=== PATIENT | female | born 1995 | race Caucasian/White ===

== ENCOUNTER 2017-10-14 18:49 | Emergency (ER) | payer OTHER ==
[2017-10-14 19:27] VITALS: RESP 18
--- NOTE | 2017-10-14 19:58 | ED ---
Psych HPI - General Source: patient, RN notes reviewed Mode of arrival: ambulatory - History of Present Illness MD Complaint: suicidal ideation, feels depressed <Lewis Walters - Last Filed: 10/14/17 20:47> <Jose Ramos - Last Filed: 10/14/17 22:46> - General Chief Complaint: Psychiatric Symptoms Stated Complaint: Mental Health Time Seen by Provider: 10/14/17 19:30 - History of Present Illness Initial Comments: This is a 21-year-old female with history depression. Past several years he states she's been very despondent today she's had suicidal thoughts she started about tiny brick to her herself and jump in the river. She also has some suicidal thoughts about a week ago per family members. She states she had a fight with a girlfriend today minutes when this person particular episode started. She denies any drugs or alcohol other than using marijuana. She does have a history of cutting but nothing recent. (Lewis Walters) - Related Data Home Medications Medication Instructions Recorded Confirmed Ibuprofen [Motrin] 400 mg PO Q6HR PRN 10/14/17 10/14/17 Allergies Allergy/AdvReac Type Severity Reaction Status Date / Time Penicillins Allergy Rash/Hives Verified 10/14/17 19:50 Review of Systems ROS Other: All systems not noted in ROS Statement are negative. <Lewis Walters - Last Filed: 10/14/17 20:47> ROS Other: All systems not noted in ROS Statement are negative. <Jose Ramos - Last Filed: 10/14/17 22:46> ROS Statement: Those systems with pertinent positive or pertinent negative responses have been documented in the HPI. Past Medical History Past Medical History: No Reported History History of Any Multi-Drug Resistant Organisms: None Reported Past Surgical History: No Surgical Hx Reported Past Psychological History: Anxiety, Depression Smoking Status: Never smoker Past Alcohol Use History: None Reported Past Drug Use History: Marijuana <Lewis Walters - Last Filed: 10/14/17 20:47> General Exam Limitations: no limitations General appearance: alert Head exam: Present: atraumatic, normocephalic, normal inspection Eye exam: Present: normal appearance, PERRL, EOMI. Absent: scleral icterus, conjunctival injection, periorbital swelling ENT exam: Present: normal exam, mucous membranes moist Neck exam: Present: normal inspection. Absent: tenderness, meningismus, lymphadenopathy Respiratory exam: Present: normal lung sounds bilaterally. Absent: respiratory distress, wheezes, rales, rhonchi, stridor Cardiovascular Exam: Present: regular rate, normal rhythm, normal heart sounds. Absent: systolic murmur, diastolic murmur, rubs, gallop, clicks Extremities exam: Present: normal inspection, full ROM, normal capillary refill. Absent: tenderness, pedal edema, joint swelling, calf tenderness Back exam: Present: normal inspection Neurological exam: Present: alert, oriented X3, CN II-XII intact Psychiatric exam: Present: depressed, suicidal ideation Skin exam: Present: warm, dry, intact, normal color. Absent: rash <Lewis Walters - Last Filed: 10/14/17 20:47> General appearance: alert, in no apparent distress Head exam: Present: atraumatic, normocephalic, normal inspection Eye exam: Present: normal appearance, PERRL, EOMI. Absent: scleral icterus, conjunctival injection, periorbital swelling ENT exam: Present: normal exam, mucous membranes moist Neck exam: Present: normal inspection. Absent: tenderness, meningismus, lymphadenopathy Respiratory exam: Present: normal lung sounds bilaterally. Absent: respiratory distress, wheezes, rales, rhonchi, stridor Cardiovascular Exam: Present: regular rate, normal rhythm, normal heart sounds. Absent: systolic murmur, diastolic murmur, rubs, gallop, clicks GI/Abdominal exam: Present: soft, normal bowel sounds. Absent: distended, tenderness, guarding, rebound, rigid Extremities exam: Present: normal inspection, full ROM, normal capillary refill. Absent: tenderness, pedal edema, joint swelling, calf tenderness Back exam: Present: normal inspection Neurological exam: Present: alert, oriented X3, CN II-XII intact Psychiatric exam: Present: normal affect, normal mood Skin exam: Present: warm, dry, intact, normal color. Absent: rash <Jose Ramos - Last Filed: 10/14/17 22:46> - General Exam Comments Initial Comments: This is a well-developed well-nourished awake alert oriented 4 female (Lewis Walters) Course <Lewis Walters - Last Filed: 10/14/17 20:47> <Jose Ramos - Last Filed: 10/14/17 22:46> Vital Signs 10/14/17 19:24 Temperature 98.4 F Pulse Rate 86 Respiratory 18 Rate Blood Pressure 136/82 O2 Sat by Pulse 100 Oximetry - Reevaluation(s) Reevaluation #1: 10/14/17 20:47 The patient's care will be endorsed to Dr. Ramos at our shift change at 21: 00 PM (Lewis Walters) Reevaluation #2: 10/14/17 22:46 this patient was seen and evaluated by psychiatry here in the emergency room ( Jose Ramos) Medical Decision Making <Lewis Walters - Last Filed: 10/14/17 20:47> <Jose Ramos - Last Filed: 10/14/17 22:46> - Medical Decision Making 21 female to ER for evaluation or depression, patient given outpatient follow-up , patient is not currently homicidal or suicidal, patient will be discharged home (Jose Ramos) - Lab Data Lab Results 10/14/17 10/14/17 Range/Units 19:46 19:46 Urine HCG, Qual Not Detected (Not Detectd) Urine Opiates Screen Not Detected (NotDetected) Ur Oxycodone Screen Not Detected (NotDetected) Urine Methadone Screen Not Detected (NotDetected) Ur Propoxyphene Screen Not Detected (NotDetected) Ur Barbiturates Screen Not Detected (NotDetected) U Tricyclic Antidepress Not Detected (NotDetected) Ur Phencyclidine Scrn Not Detected (NotDetected) Ur Amphetamines Screen Not Detected (NotDetected) U Methamphetamines Scrn Not Detected (NotDetected) U Benzodiazepines Scrn Not Detected (NotDetected) Urine Cocaine Screen Not Detected (NotDetected) U Marijuana (THC) Screen Detected H (NotDetected) Disposition <Lewis Walters - Last Filed: 10/14/17 20:47> <Jose Ramos - Last Filed: 10/14/17 22:46> Clinical Impression: Depression Disposition: HOME SELF-CARE Condition: Fair Instructions: Depression (ED) Referrals: None,Stated [Primary Care Provider] - 1-2 days
[2017-10-14 22:55] VITALS: BP 127/74; PULSE 80; TEMP 97
== END 2017-10-14 22:55 | disposition home or self-care (01) ==
LOC: EC 18:49
DX: F32.9 Major depressive disorder, single episode, unspecified (principal); R45.851 Suicidal ideations; Z88.0 Allergy status to penicillin
CPT/HCPCS: 80306; 81025; 82075; 99284

== ENCOUNTER 2017-12-09 12:44 | Emergency (ER) | payer OTHER ==
[2017-12-09 12:47] VITALS: BP 132/71; PULSE 81; RESP 20; TEMP 98
--- NOTE | 2017-12-09 13:01 | ED ---
General Adult HPI - General Chief complaint: ENT Stated complaint: Ear Pain Time Seen by Provider: 12/09/17 12:48 Source: patient, RN notes reviewed Mode of arrival: ambulatory Limitations: no limitations - History of Present Illness Initial comments: Patient's a 22-year-old female who presents emergency room today with chief complaint of right-sided ear pain that started last night. She does admit that it is a sharp type pain. She does not that the hearing is somewhat muffled out of this ear. Patient denies any other complaint or symptoms. Patient denies any recent fever, chills, shortness of breath, chest pain, back pain, abdominal pain, nausea or vomiting, headaches or visual changes, or any other complaints. - Related Data Home Medications Medication Instructions Recorded Confirmed Ibuprofen [Motrin] 400 mg PO Q6HR PRN 10/14/17 12/09/17 Previous Rx's Medication Instructions Recorded Azithromycin [Zithromax Z-pack] 0 mg PO DIRECTED #6 tab 12/09/17 Allergies Allergy/AdvReac Type Severity Reaction Status Date / Time Penicillins Allergy Rash/Hives Verified 12/09/17 12:47 Review of Systems ROS Statement: Those systems with pertinent positive or pertinent negative responses have been documented in the HPI. ROS Other: All systems not noted in ROS Statement are negative. Past Medical History Past Medical History: No Reported History History of Any Multi-Drug Resistant Organisms: None Reported Past Surgical History: No Surgical Hx Reported Past Psychological History: Anxiety, Depression Smoking Status: Never smoker Past Alcohol Use History: None Reported Past Drug Use History: Marijuana General Exam - General Exam Comments Initial Comments: General: The patient is awake and alert, in no distress, and does not appear acutely ill. Eye: Pupils are equal, round and reactive to light, extra-ocular movements are intact. No nystagmus. There is normal conjunctiva bilaterally. No signs of icterus. Ears, nose, mouth and throat: There are moist mucous membranes and no oral lesions. Increased redness or erythema to the right ear with tenderness over the tagrus and pinna Neck: The neck is supple, there is no tenderness or JVD. Cardiovascular: There is a regular rate and rhythm. No murmur, rub or gallop is appreciated. Respiratory: Lungs are clear to auscultation, respirations are non-labored, breath sounds are equal. No wheezes, stridor, rales, or rhonchi. Musculoskeletal: Normal ROM, no tenderness. Strength 5/5. Sensation intact. Pulses equal bilaterally 2+. Neurological: A&O x 3. CN II-XII intact, There are no obvious motor or sensory deficits. Coordination appears grossly intact. Speech is normal. Skin: Skin is warm and dry and no rashes or lesions are noted. Psychiatric: Cooperative, appropriate mood & affect, normal judgment. Limitations: no limitations Course Vital Signs 12/09/17 12:44 Temperature 98.0 F Pulse Rate 81 Respiratory 20 Rate Blood Pressure 132/71 O2 Sat by Pulse 98 Oximetry Medical Decision Making - Medical Decision Making Patient will be started on antibiotics cover for otitis media. Patient does have ALLERGY to penicillins and be given azithromycin. Disposition Clinical Impression: Right acute otitis media Disposition: HOME SELF-CARE Condition: Good Instructions: Otitis Media (ED) Additional Instructions: Please use medication as discussed. Please follow-up with family doctor in the next 2 days of symptoms have not improved. Please return to emergency room if the symptoms increase or worsen or for any other concerns. Prescriptions: Azithromycin [Zithromax Z-pack] 0 mg PO DIRECTED #6 tab Referrals: None,Stated [Primary Care Provider] - 1-2 days Marcelino Thomas MD [STAFF PHYSICIAN] - 1-2 days Time of Disposition: 13:00
== END 2017-12-09 13:20 | disposition home or self-care (01) ==
LOC: EC 12:44
DX: H66.91 Otitis media, unspecified, right ear (principal); Z88.0 Allergy status to penicillin
CPT/HCPCS: 99282

== ENCOUNTER 2018-01-07 16:56 | Emergency (ER) | payer OTHER ==
[2018-01-07] MEDS ORDERED: ONDANSETRON 4 MG/2 ML VIAL IM STA (17:25)
--- NOTE | 2018-01-07 17:28 | ED ---
General Adult HPI - General Chief complaint: Nausea/Vomiting/Diarrhea Stated complaint: Side pain Time Seen by Provider: 01/07/18 17:00 Source: patient, RN notes reviewed Mode of arrival: ambulatory Limitations: no limitations - History of Present Illness Initial comments: This is a 22-year-old female presents emergency Department complaining of bilateral mid back pain. Patient states started earlier today. Patient states she also became nauseated and vomited times one. Patient denies any abdominal pain. Patient denies any diarrhea. Patient denies any fever chills. Patient denies any chest pain difficulty breathing or shortness of breath. Patient denies being because she is on her period currently. Patient denies any dysuria hematuria or urinary frequency. Patient states the pain is worse with twisting and when she lays on her side she has no pain at all. - Related Data Home Medications Medication Instructions Recorded Confirmed Naproxen Sodium [Midol] 440 mg PO Q12HR PRN 01/07/18 01/07/18 Previous Rx's Medication Instructions Recorded Ibuprofen [Motrin] 600 mg PO Q6HR PRN #20 tab 01/07/18 Allergies Allergy/AdvReac Type Severity Reaction Status Date / Time Penicillins Allergy Rash/Hives Verified 01/07/18 17:22 Review of Systems ROS Statement: Those systems with pertinent positive or pertinent negative responses have been documented in the HPI. ROS Other: All systems not noted in ROS Statement are negative. Past Medical History Past Medical History: No Reported History History of Any Multi-Drug Resistant Organisms: None Reported Past Surgical History: No Surgical Hx Reported Past Psychological History: Anxiety, Depression Smoking Status: Never smoker Past Alcohol Use History: None Reported Past Drug Use History: Marijuana General Exam - General Exam Comments Initial Comments: GENERAL: Patient is well-developed and well-nourished. Patient is nontoxic and well- hydrated and is in mild distress. ENT: Neck is soft and supple. No significant lymphadenopathy is noted. Oropharynx is clear. Moist mucous membranes. Neck has full range of motion without eliciting any pain. EYES: The sclera were anicteric and conjunctiva were pink and moist. Extraocular movements were intact and pupils were equal round and reactive to light. Eyelids were unremarkable. PULMONARY: Unlabored respirations. Good breath sounds bilaterally. No audible rales rhonchi or wheezing was noted. CARDIOVASCULAR: There is a regular rate and rhythm without any murmurs gallops or rubs. ABDOMEN: Soft and nontender with normal bowel sounds. No palpable organomegaly was noted. There is no palpable pulsatile mass. Patient does have mild CVA tenderness bilaterally SKIN: Skin is clear with no lesions or rashes and otherwise unremarkable. NEUROLOGIC: Patient is alert and oriented x3. Cranial nerves II through XII are grossly intact. Motor and sensory are also intact. Normal speech, volume and content. Symmetrical smile. MUSCULOSKELETAL: Normal extremities with adequate strength and full range of motion. LYMPHATICS: No significant lymphadenopathy is noted PSYCHIATRIC: Normal psychiatric evaluation. Limitations: no limitations Course Vital Signs 01/07/18 17:01 Temperature 97.7 F Pulse Rate 73 Respiratory 18 Rate Blood Pressure 134/70 O2 Sat by Pulse 98 Oximetry Medical Decision Making - Lab Data Lab Results 01/07/18 01/07/18 Range/Units 17:50 17:50 Urine Color Yellow Urine Appearance Clear (Clear) Urine pH 5.5 (5.0-8.0) Ur Specific [place] 1.026 (1.001-1.035) Urine Protein Trace H (Negative) Urine Glucose (UA) Negative (Negative) Urine Ketones Negative (Negative) Urine Blood Small H (Negative) Urine Nitrite Negative (Negative) Urine Bilirubin Negative (Negative) Urine Urobilinogen <2.0 (<2.0) mg/dL Ur Leukocyte Esterase Negative (Negative) Urine RBC 5 (0-5) /hpf Urine WBC 4 (0-5) /hpf Ur Squamous Epith Cells 1 (0-4) /hpf Urine Mucus Many H (None) /hpf Urine HCG, Qual Not Detected (Not Detectd) Disposition Clinical Impression: Thoracic back pain Disposition: HOME SELF-CARE Condition: Good Instructions: Thoracic Back Strain (ED) Prescriptions: Ibuprofen [Motrin] 600 mg PO Q6HR PRN #20 tab PRN Reason: For pain Referrals: None,Stated [Primary Care Provider] - 1-2 days Time of Disposition: 18:48
[2018-01-07 18:04] LABS: Appearance,Urine Clear (Clear); Bilirubin,Urine Negative (Negative); Blood,Urine Small (Negative); Color,Urine Yellow; Glucose,Urine (UA) Negative (Negative); Ketones,Urine Negative (Negative); Leukocyte Esterase,Urine Negative (Negative); Mucus,Urine Many /hpf; Nitrite,Urine Negative (Negative); PH, Urine 5.5 (5.0-8.0); Protein,Urine Trace (Negative); RBC,Urine 5 /hpf (0-5); Specific Gravity,Urine 1.026 (1.001-1.035); Squamous Epithelial Cell,Urine 1 /hpf (0-4); Urobilinogen,Urine <2.0 mg/dL (<2.0); WBC,Urine 4 /hpf (0-5)
[2018-01-07 19:06] VITALS: BP 120/72; PULSE 70; RESP 16; TEMP 98.3
== END 2018-01-07 19:06 | disposition home or self-care (01) ==
LOC: EC 16:56
DX: M54.6 Pain in thoracic spine (principal); R11.2 Nausea with vomiting, unspecified; Z88.0 Allergy status to penicillin
CPT/HCPCS: 81001; 81025; 99284; 96372; J2405

== ENCOUNTER 2018-03-31 00:02 | Inpatient (IN) | payer OTHER ==
[2018-03-31] MEDS ORDERED: SODIUM CHLORIDE 0.9% 1,000 ML IV STA (00:30)
--- NOTE | 2018-03-31 00:36 | ED ---
Overdose HPI - General Chief Complaint: Overdose Stated Complaint: Overdose Time Seen by Provider: 03/31/18 00:30 Source: patient Mode of arrival: ambulatory Limitations: no limitations - History of Present Illness Initial Comments: This patient is a 22-year-old woman who presents to be evaluated after an overdose. The patient states she has many year history of depression. Her mood was worse today. She states that she decided to take an overdose of pills. She does not know what the pills were, she states she found him on the counter at her house. She believes they may have been [id number] medicines. The patient states this was about 45 minutes ago. She is denying symptoms. Patient states that she text that her mother saying that she was going to see her father, who is , and then EMS was called as a result. Complaint: intentional overdose Onset/Timin -: minutes(s) Intent: suicide attempt How Overdose Was Discovered: called family/friend Associated Symptoms: depression Treatments Prior to Arrival: none - Related Data Home Medications Medication Instructions Recorded Confirmed Naproxen Sodium [Midol] 440 mg PO Q12HR PRN 01/07/18 01/07/18 Previous Rx's Medication Instructions Recorded Ibuprofen [Motrin] 600 mg PO Q6HR PRN #20 tab 01/07/18 Allergies Allergy/AdvReac Type Severity Reaction Status Date / Time Penicillins Allergy Rash/Hives Verified 03/31/18 00:10 Review of Systems ROS Statement: Those systems with pertinent positive or pertinent negative responses have been documented in the HPI. ROS Other: All systems not noted in ROS Statement are negative. Constitutional: Denies: fever, chills, weakness Eyes: Denies: vision change Respiratory: Denies: cough, dyspnea Cardiovascular: Denies: chest pain, palpitations, syncope Gastrointestinal: Denies: abdominal pain, vomiting, diarrhea Genitourinary: Denies: dysuria, hematuria, abnormal menses Musculoskeletal: Denies: back pain Skin: Denies: rash Neurological: Denies: headache, weakness, numbness Psychiatric: Reports: depression, suicidal thoughts. Denies: anxiety, auditory hallucinations, visual hallucinations, homicidal thoughts Past Medical History Past Medical History: No Reported History History of Any Multi-Drug Resistant Organisms: None Reported Past Surgical History: No Surgical Hx Reported Past Psychological History: Anxiety, Depression Smoking Status: Never smoker Past Alcohol Use History: None Reported Past Drug Use History: Marijuana General Exam Limitations: no limitations General appearance: alert, in no apparent distress, anxious Head exam: Present: atraumatic, normocephalic Eye exam: Present: normal appearance. Absent: scleral icterus, conjunctival injection ENT exam: Present: normal oropharynx Neck exam: Present: normal inspection Respiratory exam: Present: normal lung sounds bilaterally. Absent: respiratory distress, wheezes, rales, rhonchi, stridor Cardiovascular Exam: Present: regular rate, normal rhythm, normal heart sounds. Absent: systolic murmur, diastolic murmur, rubs, gallop GI/Abdominal exam: Present: soft. Absent: distended, tenderness, guarding, rebound, mass Extremities exam: Present: normal inspection, normal capillary refill. Absent: pedal edema, calf tenderness Back exam: Present: normal inspection Neurological exam: Present: alert, oriented X3. Absent: motor sensory deficit Psychiatric exam: Present: depressed, anxious, suicidal ideation. Absent: agitated, flat affect, manic, homicidal ideation Skin exam: Present: warm, dry, intact, normal color. Absent: rash Course Vital Signs 03/31/18 03/31/18 03/31/18 00:07 01:23 03:07 Temperature 97.5 F L Pulse Rate 93 94 86 Pulse Rate [ Pulse Oximetery ] Respiratory 18 18 18 Rate Blood Pressure 122/81 112/72 104/58 Blood Pressure [Left Arm Sitting] O2 Sat by Pulse 96 96 99 Oximetry 03/31/18 03/31/18 04:23 05:09 Temperature 97 F L Pulse Rate 68 Pulse Rate [ 85 Pulse Oximetery ] Respiratory 18 18 Rate Blood Pressure 104/60 Blood Pressure 134/71 [Left Arm Sitting] O2 Sat by Pulse 98 97 Oximetry Medical Decision Making - Medical Decision Making This patient is 22-year-old woman who reports taking an overdose of which she believes to be [id number] medicines. She was not sure the exact medication that she took but is testing positive for Tylenol and after discussion with poison control she appears to lie right at the borderline of the treatment nomogram. Out of since of caution we'll treat the patient, and admit for psychiatric evaluation as well. I did personally speak with poison control regarding this patient. - Lab Data Result diagrams: 03/31/18 00:35 03/31/18 00:35 Lab Results 03/31/18 03/31/18 03/31/18 Range/Units 00:15 00:15 00:35 WBC (3.8-10.6) k/uL RBC (3.80-5.40) m/uL Hgb (11.4-16.0) gm/dL Hct (34.0-46.0) % MCV (80.0-100.0) fL MCH (25.0-35.0) pg MCHC (31.0-37.0) g/dL RDW (11.5-15.5) % Plt Count (150-450) k/uL Neutrophils % % Lymphocytes % % Monocytes % % Eosinophils % % Basophils % % Neutrophils # (1.3-7.7) k/uL Lymphocytes # (1.0-4.8) k/uL Monocytes # (0-1.0) k/uL Eosinophils # (0-0.7) k/uL Basophils # (0-0.2) k/uL Sodium 144 (137-145) mmol/L Potassium 3.9 (3.5-5.1) mmol/L Chloride 107 (98-107) mmol/L Carbon Dioxide 21 L (22-30) mmol/L Anion Gap 16 mmol/L BUN 7 (7-17) mg/dL Creatinine 0.60 (0.52-1.04) mg/dL Est GFR (CKD-EPI)AfAm >90 (>60 ml/min/1.73 sqM) Est GFR (CKD-EPI)NonAf >90 (>60 ml/min/1.73 sqM) Glucose 85 (74-99) mg/dL Calcium 9.8 (8.4-10.2) mg/dL Total Bilirubin 0.9 (0.2-1.3) mg/dL AST 25 (14-36) U/L ALT 32 (9-52) U/L Alkaline Phosphatase 66 (38-126) U/L Total Protein 7.1 (6.3-8.2) g/dL Albumin 4.5 (3.5-5.0) g/dL Urine HCG, Qual Not Detected (Not Detectd) Salicylates <1.0 mg/dL Urine Opiates Screen Not Detected (NotDetected) Ur Oxycodone Screen Not Detected (NotDetected) Urine Methadone Screen Not Detected (NotDetected) Ur Propoxyphene Screen Not Detected (NotDetected) Acetaminophen 103.0 H* ug/mL Ur Barbiturates Screen Not Detected (NotDetected) U Tricyclic Antidepress Not Detected (NotDetected) Ur Phencyclidine Scrn Not Detected (NotDetected) Ur Amphetamines Screen Not Detected (NotDetected) U Methamphetamines Scrn Not Detected (NotDetected) U Benzodiazepines Scrn Not Detected (NotDetected) Urine Cocaine Screen Not Detected (NotDetected) U Marijuana (THC) Screen Not Detected (NotDetected) Serum Alcohol <10 mg/dL 03/31/18 03/31/18 Range/Units 00:35 03:05 WBC 9.8 (3.8-10.6) k/uL RBC 4.88 (3.80-5.40) m/uL Hgb 14.3 (11.4-16.0) gm/dL Hct 41.0 (34.0-46.0) % MCV 83.9 (80.0-100.0) fL MCH 29.2 (25.0-35.0) pg MCHC 34.8 (31.0-37.0) g/dL RDW 12.4 (11.5-15.5) % Plt Count 235 (150-450) k/uL Neutrophils % 47 % Lymphocytes % 41 % Monocytes % 8 % Eosinophils % 1 % Basophils % 1 % Neutrophils # 4.6 (1.3-7.7) k/uL Lymphocytes # 4.1 (1.0-4.8) k/uL Monocytes # 0.8 (0-1.0) k/uL Eosinophils # 0.1 (0-0.7) k/uL Basophils # 0.1 (0-0.2) k/uL Sodium (137-145) mmol/L Potassium (3.5-5.1) mmol/L Chloride (98-107) mmol/L Carbon Dioxide (22-30) mmol/L Anion Gap mmol/L BUN (7-17) mg/dL Creatinine (0.52-1.04) mg/dL Est GFR (CKD-EPI)AfAm (>60 ml/min/1.73 sqM) Est GFR (CKD-EPI)NonAf (>60 ml/min/1.73 sqM) Glucose (74-99) mg/dL Calcium (8.4-10.2) mg/dL Total Bilirubin (0.2-1.3) mg/dL AST (14-36) U/L ALT (9-52) U/L Alkaline Phosphatase (38-126) U/L Total Protein (6.3-8.2) g/dL Albumin (3.5-5.0) g/dL Urine HCG, Qual (Not Detectd) Salicylates mg/dL Urine Opiates Screen (NotDetected) Ur Oxycodone Screen (NotDetected) Urine Methadone Screen (NotDetected) Ur Propoxyphene Screen (NotDetected) Acetaminophen 92.0 H* ug/mL Ur Barbiturates Screen (NotDetected) U Tricyclic Antidepress (NotDetected) Ur Phencyclidine Scrn (NotDetected) Ur Amphetamines Screen (NotDetected) U Methamphetamines Scrn (NotDetected) U Benzodiazepines Scrn (NotDetected) Urine Cocaine Screen (NotDetected) U Marijuana (THC) Screen (NotDetected) Serum Alcohol mg/dL - EKG Data -: EKG Interpreted by Me EKG shows normal: sinus rhythm, axis (Normal), intervals (Normal), QRS complexes (Normal), ST-T waves (Normal) Rate: normal (Rate 89 bpm) Interpretation: normal EKG Critical Care Time Critical Care Time: Yes (35 minutes) Disposition Clinical Impression: Acetaminophen overdose Disposition: ADMITTED IP TO THIS [facility] Condition: Fair Is patient prescribed a controlled substance at d/c from ED?: No
[2018-03-31 00:56] LABS: Basophils # (A) 0.1 k/uL (0-0.2); Basophils % (A) 1 %; Eosinophils # (A) 0.1 k/uL (0-0.7); Eosinophils % (A) 1 %; HGB 14.3 gm/dL (11.4-16.0); Lymphocytes # (A) 4.1 k/uL (1.0-4.8); Lymphocytes % (A) 41 %; MCH 29.2 pg (25.0-35.0); MCHC 34.8 g/dL (31.0-37.0); MCV 83.9 fL (80.0-100.0); Mean Platelet Volume 7.3; Monocytes # (A) 0.8 k/uL (0-1.0); Monocytes % (A) 8 %; Neutrophils # (A) 4.6 k/uL (1.3-7.7); Neutrophils % (A) 47 %; Platelet Count 235 k/uL (150-450); RBC 4.88 m/uL (3.80-5.40); RDW 12.4 % (11.5-15.5); WBC 9.8 k/uL (3.8-10.6)
[2018-03-31 01:06] LABS: ALT 32 U/L (9-52); AST 25 U/L (14-36); Albumin 4.5 g/dL (3.5-5.0); Alcohol <10 mg/dL; Alkaline Phosphatase 66 U/L (38-126); Anion Gap 16 mmol/L; Blood Urea Nitrogen 7 mg/dL (7-17); Calcium 9.8 mg/dL (8.4-10.2); Carbon Dioxide 21 mmol/L (22-30); Chloride 107 mmol/L (98-107); Glucose 85 mg/dL (74-99); Potassium 3.9 mmol/L (3.5-5.1); Salicylate <1.0 mg/dL; Sodium 144 mmol/L (137-145); Total Bilirubin 0.9 mg/dL (0.2-1.3); Total Protein 7.1 g/dL (6.3-8.2)
[2018-03-31 01:09] LABS: Amphetamine Screen,Urine Not Detected (NotDetected); Barbiturate Screen,Urine Not Detected (NotDetected); Benzodiazepines Screen,Urine Not Detected (NotDetected); Cocaine Screen,Urine Not Detected (NotDetected); Methadone Screen, Urine Not Detected (NotDetected); Opiate Screen,Urine Not Detected (NotDetected); Oxycodone Screen, Urine Not Detected (NotDetected); Phencyclidine Screen,Urine Not Detected (NotDetected); Tricyclic Antidepressant,Urine Not Detected (NotDetected); Urn Cannabinoid Scrn Not Detected (NotDetected)
[2018-03-31] MEDS ORDERED: ACETYLCYSTEINE 6,000 MG/30 ML VIAL PO ONE (01:11)
[2018-03-31] MEDS ORDERED: NALOXONE 0.4 MG/ML 1 ML VIAL IV PRN (04:38)
[2018-03-31] MEDS ORDERED: ONDANSETRON 4 MG/2 ML VIAL IVP PRN (04:38)
[2018-03-31] MEDS: SODIUM CHLORIDE 0.9% 1,000 ML IV SCH ×2 (05:45→15:57)
[2018-03-31 05:53] VITALS: BMI 30.2
[2018-03-31] MEDS: ACETYLCYSTEINE 6,000 MG/30 ML VIAL PO SCH ×4 (07:53→20:45)
--- NOTE | 2018-03-31 15:43 | P.CN ---
Psychiatric Consult - . Consult date: 03/31/18 Consult:: 03/31/18 15:35 Patient was seen on a psych consult regarding her recent overdose. Patient said she had just some stressors at work and Yo, about a small dog with her friends/relatives, got upset and showered a bunch of Tylenol tablets. Her initial Tylenol level was 103 which had come down to 92 at 3:00 this morning. Patient has a long history of self abusive behavior including cutting herself and this time overdosing on pills when things don't go well and she becomes frustrated, disappointed or when she feels she is rejected. She is also a very [id number] person, expresses her feelings/emotions quite easily and she get hurt also quite easily. She denies abusing drugs and alcohol. Her drug screening is negative except for increased Tylenol level. This is a white ambulatory female with good hygiene. She is very friendly and polite and cooperative. She does not show any psychomotor agitation or retardation. Her speech is spontaneous relevant and goal-directed. Her mood is cheerful and affect is appropriate to the thought content. She is being visited by her best friend and girlfriend who apparently brought some chicken McNuggets, macedonian fries and probably Coke. She insists that she is not suicidal or homicidal. Her plans include returning to work and go home. She is well oriented with good memory concentration general fund of knowledge etc. Her insight is adequate but judgment is impaired as evidenced by her recent overdose. Assessment: Borderline personality disorder F 60.3. Patient is not a suicide risk. Suggestion: Patient does not need the sitter. She can be discharged when medically cleared with the referral to [facility] for the DBT.
[2018-03-31 16:23] LABS: ALT 34 U/L (9-52); AST 19 U/L (14-36); Acetaminophen <10.0 ug/mL; Alkaline Phosphatase 53 U/L (38-126); Total Bilirubin 0.9 mg/dL (0.2-1.3)
--- NOTE | 2018-03-31 21:13 | P.HPIM ---
History of Present Illness H&P Date: 03/31/18 Chief Complaint: Drug overdose Patient is a 22-year-old female with known history of self-inflicting wounds and depression was admitted to the hospital after she overdose with Tylenol pills. Patient was brought to the hospital by his family where she took over- the-counter medications at about 45 minutes prior to admission. Patient became upset last night around 11:30 and try to overdose herself. Patient does work at [employer]. Patient was found have elevated acetaminophen level. Liver and Not Elevated. Patient Currently Denied Currently Any Complaints of Nausea Vomiting. No Abdominal Pain. No Diarrhea or Dysuria. Patient Is Accompanied by Her Girlfriend at This Time. Patient states that she text that her mother saying that she was going to see her father, who is , and then EMS was called as a result. Currently patient is awake alert and oriented 3 and denied any complaints of suicidal ideation. Able to communicate appropriately.. Review of Systems Constitutional: Patient denies any fever or chills . No generalized weakness or weight loss. Abdomen: Patient denied nausea vomiting and diarrhea and abdominal pain. Cardiovascular: Patient denies any chest pain or short of breath no palpitations. Respiratory: patient denied any cough is from production. No shortness of breath Neurologic: Patient denied any numbness or tingling headache. Musculoskeletal: Patient denies any complaints of joint swelling or deformity. Skin: Negative Psychiatric: Negative Endocrine: No heat or cold intolerance. No recent weight gain. Genitourinary: No dysuria or hematuria. All other 14 point ROS negative except the above Past Medical History Past Medical History: No Reported History History of Any Multi-Drug Resistant Organisms: None Reported Past Surgical History: No Surgical Hx Reported Past Psychological History: Anxiety, Depression Smoking Status: Never smoker Past Alcohol Use History: None Reported Past Drug Use History: Marijuana Medications and Allergies Home Medications Medication Instructions Recorded Confirmed Type No Known Home Medications [No 03/31/18 03/31/18 History Known Home Medications] Allergies Allergy/AdvReac Type Severity Reaction Status Date / Time Penicillins Allergy Rash/Hives Verified 03/31/18 08:09 venom-wasp Allergy Anaphylaxis Verified 03/31/18 08:09 SOUR CREAM Allergy Swelling Uncoded 03/31/18 08:09 Physical Exam Vitals: Vital Signs Temp Pulse Pulse Resp BP BP Pulse Ox 03/31/18 08:00 97.6 F 84 16 128/75 96 03/31/18 06:02 18 03/31/18 05:09 97 F L 85 18 134/71 97 03/31/18 04:23 68 18 104/60 98 03/31/18 03:07 86 18 104/58 99 03/31/18 01:23 94 18 112/72 96 03/31/18 00:07 97.5 F L 93 18 122/81 96 Intake and Output 03/30/18 03/31/18 03/31/18 22:59 06:59 14:59 Intake Total 300 Balance 300 Intake: Oral 300 Other: Weight 82.4 kg PHYSICAL EXAMINATION: Patient is lying in the bed comfortably, no acute distress, awake alert and oriented.. HEENT: Normocephalic. Neck is supple. Pupils reactive. Nostrils clear. Oral cavity is moist. Ears reveal no drainage. Neck reveals no JVD, carotid bruits, or thyromegaly. CHEST EXAMINATION: Trachea is central. Symmetrical expansion. Lung art clear to auscultation and percussion. CARDIAC: Normal S1, S2 with no gallops. No murmurs ABDOMEN: Soft. Bowel sounds normal. No organomegaly. No abdominal bruits. Extremities: reveal no edema. No clubbing or cyanosis Neurologically awake, alert, oriented x3 with well-coordinated movements. No focal deficits noted Skin: No rash or skin lesions. Psychiatric: Coperative. Nonsuicidal Musculoskeletal: No joint swelling or deformity. Normal range of motion. Results CBC & Chem 7: 03/31/18 00:35 03/31/18 00:35 Labs: Abnormal Lab Results - Last 24 Hours (Table) 03/31/18 03/31/18 Range/Units 00:35 03:05 Carbon Dioxide 21 L (22-30) mmol/L Acetaminophen 103.0 H* 92.0 H* ug/mL Thrombosis Risk Factor Assmnt - DVT/VTE Prophylaxis DVT/VTE Prophylaxis: Pharmacologic Prophylaxis ordered - Choose All That Apply Any of the Below Risk Factors Present?: Yes Each Factor Represents 1 point: Obesity (BMI >25) Other Risk Factors: No Other congenital or acquired thrombophilia - If yes, enter type in comment: No Thrombosis Risk Factor Assessment Total Risk Factor Score: 1 Thrombosis Risk Factor Assessment Level: Low Risk Assessment and Plan Assessment: Acute acetaminophen overdose and possible suicide attempt Depression Borderline personality disorder Previous history of self-inflicted wounds Plan: Patient will be continued on IV fluids and was also started on N-acetyl cystine. Continue to monitor acetaminophen level and liver enzymes. Continue with the supportive care and psychiatry was consulted. Continued on sitter. Further recommendations based on the clinical course. Time with Patient: Greater than 30
[2018-03-31 23:23] VITALS: RESP 16
[2018-04-01] MEDS: SODIUM CHLORIDE 0.9% 1,000 ML IV SCH ×2 (00:50→10:29)
[2018-04-01] MEDS: ACETYLCYSTEINE 6,000 MG/30 ML VIAL PO SCH ×4 (00:50→12:11)
[2018-04-01 07:11] VITALS: BP 113/70; PULSE 107; TEMP 97.6
[2018-04-01 07:55] LABS: ALT 29 U/L (9-52); AST 19 U/L (14-36); Albumin 4.3 g/dL (3.5-5.0); Alkaline Phosphatase 49 U/L (38-126); Anion Gap 17 mmol/L; Blood Urea Nitrogen 3 mg/dL (7-17); Calcium 9.4 mg/dL (8.4-10.2); Carbon Dioxide 17 mmol/L (22-30); Chloride 111 mmol/L (98-107); Glucose 79 mg/dL (74-99); Potassium 3.9 mmol/L (3.5-5.1); Sodium 145 mmol/L (137-145); Total Bilirubin 0.8 mg/dL (0.2-1.3); Total Protein 6.8 g/dL (6.3-8.2)
--- NOTE | 2018-04-01 22:26 | P.DS ---
Providers Date of admission: 03/31/18 04:39 Expected date of discharge: 04/01/18 Attending physician: Ángel Yeung Consults: 03/31/18 04:39 Consult Physician Routine Consulting Provider: Andrea Oliver Consult Reason/Comments: Overdose Do you want consulting provider notified?: Yes Primary care physician: Stated None Hospital Course: Discharge diagnosis Acute acetaminophen overdose and possible suicide attempt Depression Borderline personality disorder Previous history of self-inflicted wounds Hospital course Patient is a 22-year-old female with known history of self-inflicting wounds and depression was admitted to the hospital after she overdose with Tylenol pills. Patient was brought to the hospital by his family where she took over- the-counter medications at about 45 minutes prior to admission. Patient became upset last night around 11:30 and try to overdose herself. Patient does work at [employer]. Patient was found have elevated acetaminophen level. Liver and Not Elevated. Patient Currently Denied Currently Any Complaints of Nausea Vomiting. No Abdominal Pain. No Diarrhea or Dysuria. Patient Is Accompanied by Her Girlfriend at This Time. Patient states that she text that her mother saying that she was going to see her father, who is , and then EMS was called as a result. Currently patient is awake alert and oriented 3 and denied any complaints of suicidal ideation. Able to communicate appropriately.. Patient was continued on IV fluids and was also started on N-acetyl cystine. Continued to monitor acetaminophen level and liver enzymes. Liver enzymes are not elevated. Acetaminophen level came down to less than 10 now. Patient does not have any complaints of abdominal pain. Tolerating oral diet. Patient was seen by psychiatry and recommended, community mental health follow-up. Continue with the supportive care and psychiatry was consulted. The sensitive.. Patient is stable to be discharged home. Discharge physical examination was done and vitals reviewed. Vital Signs 03/31/18 03/31/18 03/31/18 00:07 01:23 03:07 Temperature 97.5 F L Pulse Rate 93 94 86 Pulse Rate [ Pulse Oximetery ] Respiratory 18 18 18 Rate Blood Pressure 122/81 112/72 104/58 Blood Pressure [Left Arm Sitting] O2 Sat by Pulse 96 96 99 Oximetry 03/31/18 03/31/18 03/31/18 04:23 05:09 06:02 Temperature 97 F L Pulse Rate 68 Pulse Rate [ 85 Pulse Oximetery ] Respiratory 18 18 18 Rate Blood Pressure 104/60 Blood Pressure 134/71 [Left Arm Sitting] O2 Sat by Pulse 98 97 Oximetry 03/31/18 03/31/18 03/31/18 08:00 12:00 15:40 Temperature 97.6 F 97.7 F 97.0 F L Pulse Rate Pulse Rate [ 84 91 92 Pulse Oximetery ] Respiratory 16 16 18 Rate Blood Pressure Blood Pressure 128/75 131/82 127/76 [Left Arm Sitting] O2 Sat by Pulse 96 97 96 Oximetry 03/31/18 03/31/18 04/01/18 22:55 23:21 07:10 Temperature 98.2 F 97.7 F 97.6 F Pulse Rate Pulse Rate [ 86 74 107 H Pulse Oximetery ] Respiratory 18 16 16 Rate Blood Pressure Blood Pressure 122/65 125/84 113/70 [Left Arm Sitting] O2 Sat by Pulse 98 99 99 Oximetry Patient Condition at Discharge: Fair Plan - Discharge Summary Discharge Rx Participant: No New Discharge Prescriptions: Continue No Known Home Medications [No Known Home Medications] Discharge Medication List No Known Home Medications [No Known Home Medications] 03/31/18 [History] Follow up Appointment(s)/Referral(s): None,Stated [Primary Care Provider] - 1-2 days Patient Instructions/Handouts: Acetaminophen Overdose (DC) Discharge Disposition: HOME SELF-CARE
== END 2018-04-01 12:42 | disposition home or self-care (01) | DRG 918 ==
LOC: EC 00:02 → 6SEL 04:39 → 3SUR 23:11
PROVIDERS: ADMIT Hospitalist; ATTEND Hospitalist
DX: T39.1X2A Poisoning by 4-Aminophenol derivatives, intentional self-harm, initial encounter (principal); Z91.030 Bee allergy status; Z88.0 Allergy status to penicillin; Z91.018 Allergy to other foods; F32.9 Major depressive disorder, single episode, unspecified; F60.3 Borderline personality disorder
CPT/HCPCS: 36415; 80053; 80306; 80320; 81025; 82075; 82247; 83520; 84075; 84450; 84460; 85025; 93005; 96360; 96361; 99285

== ENCOUNTER 2018-11-13 16:24 | Emergency (ER) | payer OTHER ==
[2018-11-13 16:29] VITALS: BP 125/83; PULSE 83; RESP 16; TEMP 97.7
--- NOTE | 2018-11-13 17:27 | ED ---
Upper Extremity HPI - General Chief Complaint: Extremity Injury, Upper Stated Complaint: Broken nuckle Time Seen by Provider: 11/13/18 17:19 Source: patient, RN notes reviewed, old records reviewed Mode of arrival: ambulatory Limitations: no limitations - History of Present Illness Initial Comments: Patient is a pleasant a pleasant 22-year-old female who presents emergency Department today with complaints of right hand pain and swelling after punching a wall. Patient reports that she punched a wall yesterday evening out of anger. She was in a argument with her girlfriend. Patient states that she is right-handed. She reports pain with range of motion. She states that she has bruising over the second third and fourth digit. Patient has had no previous injury to this right hand before. Patient denies any recent fever, chills, shortness of breath, chest pain, back pain, abdominal pain, nausea vomiting, numbness or tingling, dysuria or hematuria, constipation or diarrhea, headaches or visual changes, or any other current symptoms - Related Data Home Medications Medication Instructions Recorded Confirmed Clindamycin HCl [Cleocin] 300 mg PO Q8H 11/13/18 11/13/18 Naproxen 500 mg PO BID PRN 11/13/18 11/13/18 Allergies Allergy/AdvReac Type Severity Reaction Status Date / Time Penicillins Allergy Rash/Hives Verified 11/13/18 17:32 venom-wasp Allergy Anaphylaxis Verified 11/13/18 17:32 SOUR CREAM Allergy Swelling Uncoded 11/13/18 16:29 Review of Systems ROS Statement: Those systems with pertinent positive or pertinent negative responses have been documented in the HPI. ROS Other: All systems not noted in ROS Statement are negative. Past Medical History Past Medical History: Asthma History of Any Multi-Drug Resistant Organisms: None Reported Past Surgical History: No Surgical Hx Reported Past Psychological History: Anxiety, Depression Smoking Status: Current some day smoker Past Alcohol Use History: None Reported Past Drug Use History: Marijuana General Exam - General Exam Comments Initial Comments: 22-year-old female. Alert and oriented. Patient appears in no acute distress. Limitations: no limitations General appearance: alert, in no apparent distress Head exam: Present: atraumatic, normocephalic, normal inspection Eye exam: Present: normal appearance, PERRL, EOMI. Absent: scleral icterus, conjunctival injection, periorbital swelling ENT exam: Present: normal exam Neck exam: Present: normal inspection. Absent: tenderness, meningismus, lymphadenopathy Respiratory exam: Present: normal lung sounds bilaterally. Absent: respiratory distress, wheezes, rales, rhonchi, stridor Cardiovascular Exam: Present: regular rate, normal rhythm, normal heart sounds. Absent: systolic murmur, diastolic murmur, rubs, gallop, clicks GI/Abdominal exam: Present: soft, normal bowel sounds. Absent: distended, tenderness, guarding, rebound, rigid Extremities exam: Present: normal inspection, full ROM, normal capillary refill. Absent: tenderness, pedal edema, joint swelling, calf tenderness Right Forearm Wrist exam: Present: normal inspection, full ROM Hand Wrist exam: Present: tenderness, swelling (over R 2-4 metacarpals. ), ecchymosis ( He has less than 2 second capillary refill.). Absent: normal inspection Neuro motor exam: Present: wrist extension intact, thumb opposition intact, thumb IP flexion intact, thumb adduction intact, fingers 2-5 abduction intact Neurosensory exam: Present: 2-point discrimination Vascular: Present: normal capillary refill Back exam: Present: normal inspection Neurological exam: Present: alert, oriented X3, CN II-XII intact Psychiatric exam: Present: normal affect, normal mood Skin exam: Present: warm, dry, intact, normal color. Absent: rash Course Vital Signs 11/13/18 16:27 Temperature 97.7 F Pulse Rate 83 Respiratory 16 Rate Blood Pressure 125/83 O2 Sat by Pulse 99 Oximetry Medical Decision Making - Medical Decision Making 22-year-old female presents return to his right hand pain after punching a wall yesterday. She has had bruising over the second third and fourth metacarpals. X-rays completed negative for any acute fracture. Placed in an Cj wrap. Discussed rest, ice and elevate the hand. Discussed return parameters. All questions answered return parameters were discussed. - Radiology Data Radiology results: report reviewed Negative right hand exam Disposition Clinical Impression: Hand contusion Disposition: HOME SELF-CARE Condition: Good Instructions: Hematoma (ED), Hand Sprain (ED) Additional Instructions: Is advised to rest, ice, and elevate the hand. Motrin tunnel for pain. Wear the Cj wrap. Return to emergency department if any alarming signs or symptoms occur. Follow-up with Dr. Oliver of pain and symptoms continue persist after ONE WEEK. Is patient prescribed a controlled substance at d/c from ED?: No Referrals: None,Stated [Primary Care Provider] - 1-2 days Jonathan Zaman MD [STAFF PHYSICIAN] - 1-2 days Time of Disposition: 18:31
--- NOTE | 2018-11-13 18:22 | XR ---
EXAMINATION TYPE: XR hand complete RT DATE OF EXAM: 11/13/2018 COMPARISON: NONE HISTORY: Pain and swelling TECHNIQUE: 3 views FINDINGS: I see no fracture nor dislocation. Joint spaces are normal. Metacarpals are intact. IMPRESSION: Negative right hand exam.
== END 2018-11-13 19:00 | disposition home or self-care (01) ==
LOC: EC 16:24
DX: S60.221A Contusion of right hand, initial encounter (principal); F17.200 Nicotine dependence, unspecified, uncomplicated; Z88.0 Allergy status to penicillin; Z91.030 Bee allergy status; Z91.09 Other allergy status, other than to drugs and biological substances; W22.01XA Walked into wall, initial encounter; Y92.009 Unspecified place in unspecified non-institutional (private) residence as the place of occurrence of the external cause
CPT/HCPCS: 99284

== ENCOUNTER 2018-12-01 14:25 | Emergency (ER) | payer OTHER ==
[2018-12-01 14:36] VITALS: RESP 18
[2018-12-01] MEDS ORDERED: DICYCLOMINE 10 MG/ML 2 ML AMP IM STA (15:54)
[2018-12-01] MEDS ORDERED: ONDANSETRON 4 MG/2 ML VIAL IVP STA ×2 (15:54→19:48)
[2018-12-01] MEDS ORDERED: SODIUM CHLORIDE 0.9% 1,000 ML IV STA ×2 (15:54→17:45)
[2018-12-01] MEDS ORDERED: FAMOTIDINE 20 MG/2 ML VIAL IV STA (15:54)
--- NOTE | 2018-12-01 15:56 | ED ---
General Adult HPI - General Source: patient, RN notes reviewed Mode of arrival: ambulatory Limitations: no limitations <Gaetano Malhotra - Last Filed: 12/01/18 15:55> <Jose Ramos - Last Filed: 12/01/18 19:47> - General Chief complaint: Nausea/Vomiting/Diarrhea Stated complaint: vomiting Time Seen by Provider: 12/01/18 15:50 - History of Present Illness Initial comments: Patient 23-year-old female presented to the emergency room today with chief complaint of symptoms of nausea vomiting diarrhea that started at 7 AM this morning. Patient does admit to cramping throughout the abdomen. Patient states that several bouts of both vomiting diarrhea. Denies any signs of blood. Patient denies any other complaints. She denies any other sick contacts. Patient denies any recent fever, chills, shortness of breath, chest pain, back pain, constipation, headaches or visual changes, or any other complaints. (Gaetano Malhotra) - Related Data Home Medications Medication Instructions Recorded Confirmed No Known Home Medications 12/01/18 12/01/18 Allergies Allergy/AdvReac Type Severity Reaction Status Date / Time Penicillins Allergy Rash/Hives Verified 12/01/18 15:48 venom-wasp Allergy Anaphylaxis Verified 12/01/18 15:48 SOUR CREAM Allergy Swelling Uncoded 11/13/18 16:29 Review of Systems ROS Other: All systems not noted in ROS Statement are negative. <Gaetano Malhotra - Last Filed: 12/01/18 15:55> ROS Other: All systems not noted in ROS Statement are negative. <Jose Ramos - Last Filed: 12/01/18 19:47> ROS Statement: Those systems with pertinent positive or pertinent negative responses have been documented in the HPI. Past Medical History Past Medical History: Asthma History of Any Multi-Drug Resistant Organisms: None Reported Past Surgical History: No Surgical Hx Reported Past Psychological History: Anxiety, Depression Smoking Status: Current some day smoker Past Alcohol Use History: None Reported Past Drug Use History: Marijuana <Gaetano Malhotra - Last Filed: 12/01/18 15:55> General Exam Limitations: no limitations <Gaetano Malhotra - Last Filed: 12/01/18 15:55> <Jose Ramos - Last Filed: 12/01/18 19:47> - General Exam Comments Initial Comments: General: The patient is awake and alert Eye: There is normal conjunctiva bilaterally. No signs of icterus. Ears, nose, mouth and throat: There are moist mucous membranes and no oral lesions. Neck: The neck is supple, there is no tenderness or JVD. Cardiovascular: There is a regular rate and rhythm. No murmur, rub or gallop is appreciated. Respiratory: Lungs are clear to auscultation, respirations are non-labored, breath sounds are equal. No wheezes, stridor, rales, or rhonchi. Gastrointestinal: Abdomen soft on palpation. Mild tenderness both left and right lower quadrants. No rebound, guarding. No CVA tenderness. Musculoskeletal: Normal ROM, no tenderness. Neurological: A&O x 3. CN II-XII intact, There are no obvious motor or sensory deficits. Coordination appears grossly intact. Speech is normal. Skin: Skin is warm and dry and no rashes or lesions are noted. Psychiatric: Cooperative, appropriate mood & affect, normal judgment. (Gaetano Malhotra) Vital Signs 12/01/18 12/01/18 14:34 18:48 Temperature 98.0 F 98.9 F Pulse Rate 86 100 Respiratory 18 18 Rate Blood Pressure 100/67 101/75 O2 Sat by Pulse 98 97 Oximetry Medical Decision Making - Lab Data Result diagrams: 12/01/18 16:09 12/01/18 16:09 <Jose Ramos - Last Filed: 12/01/18 19:47> - Lab Data Lab Results 12/01/18 12/01/18 12/01/18 Range/Units 16:09 16:09 16:09 WBC 15.8 H (3.8-10.6) k/uL RBC 5.28 (3.80-5.40) m/uL Hgb 15.3 (11.4-16.0) gm/dL Hct 44.2 (34.0-46.0) % MCV 83.7 (80.0-100.0) fL MCH 29.0 (25.0-35.0) pg MCHC 34.7 (31.0-37.0) g/dL RDW 12.5 (11.5-15.5) % Plt Count 232 (150-450) k/uL Neutrophils % 91 % Lymphocytes % 5 % Monocytes % 2 % Eosinophils % 2 % Basophils % 0 % Neutrophils # 14.3 H (1.3-7.7) k/uL Lymphocytes # 0.8 L (1.0-4.8) k/uL Monocytes # 0.3 (0-1.0) k/uL Eosinophils # 0.2 (0-0.7) k/uL Basophils # 0.0 (0-0.2) k/uL Sodium 140 (137-145) mmol/L Potassium 4.5 (3.5-5.1) mmol/L Chloride 109 H (98-107) mmol/L Carbon Dioxide 19 L (22-30) mmol/L Anion Gap 12 mmol/L BUN 14 (7-17) mg/dL Creatinine 0.50 L (0.52-1.04) mg/dL Est GFR (CKD-EPI)AfAm >90 (>60 ml/min/1.73 sqM) Est GFR (CKD-EPI)NonAf >90 (>60 ml/min/1.73 sqM) Glucose 94 (74-99) mg/dL Calcium 9.6 (8.4-10.2) mg/dL Total Bilirubin 1.9 H (0.2-1.3) mg/dL AST 36 (14-36) U/L ALT 33 (9-52) U/L Alkaline Phosphatase 66 (38-126) U/L Total Protein 8.6 H (6.3-8.2) g/dL Albumin 5.2 H (3.5-5.0) g/dL Lipase 29 (23-300) U/L Urine Color Urine Appearance (Clear) Urine pH (5.0-8.0) Ur Specific [place] (1.001-1.035) Urine Protein (Negative) Urine Glucose (UA) (Negative) Urine Ketones (Negative) Urine Blood (Negative) Urine Nitrite (Negative) Urine Bilirubin (Negative) Urine Urobilinogen (<2.0) mg/dL Ur Leukocyte Esterase (Negative) Urine RBC (0-5) /hpf Urine WBC (0-5) /hpf Ur Squamous Epith Cells (0-4) /hpf Urine Bacteria (None) /hpf Urine Mucus (None) /hpf Urine HCG, Qual (Not Detectd) 12/01/18 12/01/18 Range/Units 17:10 17:10 WBC (3.8-10.6) k/uL RBC (3.80-5.40) m/uL Hgb (11.4-16.0) gm/dL Hct (34.0-46.0) % MCV (80.0-100.0) fL MCH (25.0-35.0) pg MCHC (31.0-37.0) g/dL RDW (11.5-15.5) % Plt Count (150-450) k/uL Neutrophils % % Lymphocytes % % Monocytes % % Eosinophils % % Basophils % % Neutrophils # (1.3-7.7) k/uL Lymphocytes # (1.0-4.8) k/uL Monocytes # (0-1.0) k/uL Eosinophils # (0-0.7) k/uL Basophils # (0-0.2) k/uL Sodium (137-145) mmol/L Potassium (3.5-5.1) mmol/L Chloride (98-107) mmol/L Carbon Dioxide (22-30) mmol/L Anion Gap mmol/L BUN (7-17) mg/dL Creatinine (0.52-1.04) mg/dL Est GFR (CKD-EPI)AfAm (>60 ml/min/1.73 sqM) Est GFR (CKD-EPI)NonAf (>60 ml/min/1.73 sqM) Glucose (74-99) mg/dL Calcium (8.4-10.2) mg/dL Total Bilirubin (0.2-1.3) mg/dL AST (14-36) U/L ALT (9-52) U/L Alkaline Phosphatase (38-126) U/L Total Protein (6.3-8.2) g/dL Albumin (3.5-5.0) g/dL Lipase (23-300) U/L Urine Color Yellow Urine Appearance Cloudy H (Clear) Urine pH 5.5 (5.0-8.0) Ur Specific [place] 1.023 (1.001-1.035) Urine Protein Trace H (Negative) Urine Glucose (UA) Negative (Negative) Urine Ketones 4+ H (Negative) Urine Blood Small H (Negative) Urine Nitrite Negative (Negative) Urine Bilirubin Negative (Negative) Urine Urobilinogen <2.0 (<2.0) mg/dL Ur Leukocyte Esterase Large H (Negative) Urine RBC 2 (0-5) /hpf Urine WBC 19 H (0-5) /hpf Ur Squamous Epith Cells 8 H (0-4) /hpf Urine Bacteria Occasional H (None) /hpf Urine Mucus Few H (None) /hpf Urine HCG, Qual Not Detected (Not Detectd) Disposition <Gaetano Malhotra - Last Filed: 12/01/18 15:55> Is patient prescribed a controlled substance at d/c from ED?: No <Jose Ramos - Last Filed: 12/01/18 19:47> Clinical Impression: Gastroenteritis, UTI (urinary tract infection) Disposition: HOME SELF-CARE Condition: Good Instructions (If sedation given, give patient instructions): Acute Nausea and Vomiting (ED), Urinary Tract Infection in Women (ED) Referrals: None,Stated [Primary Care Provider] - 1-2 days
[2018-12-01 16:27] LABS: Basophils % (A) 0 %; Eosinophils # (A) 0.2 k/uL (0-0.7); Eosinophils % (A) 2 %; HCT 44.2 % (34.0-46.0); HGB 15.3 gm/dL (11.4-16.0); Lymphocytes # (A) 0.8 k/uL (1.0-4.8); Lymphocytes % (A) 5 %; MCHC 34.7 g/dL (31.0-37.0); MCV 83.7 fL (80.0-100.0); Mean Platelet Volume 7.5; Monocytes # (A) 0.3 k/uL (0-1.0); Monocytes % (A) 2 %; Neutrophils # (A) 14.3 k/uL (1.3-7.7); Neutrophils % (A) 91 %; Platelet Count 232 k/uL (150-450); RBC 5.28 m/uL (3.80-5.40); RDW 12.5 % (11.5-15.5); WBC 15.8 k/uL (3.8-10.6)
[2018-12-01 16:36] LABS: ALT 33 U/L (9-52); AST 36 U/L (14-36); Albumin 5.2 g/dL (3.5-5.0); Alkaline Phosphatase 66 U/L (38-126); Anion Gap 12 mmol/L; Blood Urea Nitrogen 14 mg/dL (7-17); Calcium 9.6 mg/dL (8.4-10.2); Carbon Dioxide 19 mmol/L (22-30); Chloride 109 mmol/L (98-107); Glucose 94 mg/dL (74-99); Potassium 4.5 mmol/L (3.5-5.1); Sodium 140 mmol/L (137-145); Total Bilirubin 1.9 mg/dL (0.2-1.3); Total Protein 8.6 g/dL (6.3-8.2)
[2018-12-01 17:26] LABS: Appearance,Urine Cloudy (Clear); Bacteria,Urine Occasional /hpf; Bilirubin,Urine Negative (Negative); Blood,Urine Small (Negative); Color,Urine Yellow; Glucose,Urine (UA) Negative (Negative); Ketones,Urine 4+ (Negative); Leukocyte Esterase,Urine Large (Negative); Mucus,Urine Few /hpf; Nitrite,Urine Negative (Negative); PH, Urine 5.5 (5.0-8.0); Protein,Urine Trace (Negative); RBC,Urine 2 /hpf (0-5); Specific Gravity,Urine 1.023 (1.001-1.035); Squamous Epithelial Cell,Urine 8 /hpf (0-4); Urobilinogen,Urine <2.0 mg/dL (<2.0)
[2018-12-01] MEDS ORDERED: cefTRIAXone 2,000 MG in SODIUM CHLORIDE 0.9% 100 ML IVPB STA (17:42)
[2018-12-01] MEDS ORDERED: AZITHROMYCIN 500 MG TAB PO STA (17:46)
--- NOTE | 2018-12-01 18:54 | CT ---
EXAMINATION TYPE: CT abdomen pelvis w con DATE OF EXAM: 12/01/2018 COMPARISON: None HISTORY: Upper Abdominal and RLQ pain with nausea and diarrhea today CT DLP: 839.1 mGycm Automated exposure control for dose reduction was used. TECHNIQUE: Helical acquisition of images was performed from the lung bases through the pelvis. CONTRAST: Performed without Oral Contrast and with IV Contrast, patient injected with 100 mL of Isovu e 300. FINDINGS: LUNG BASES: No significant abnormality is appreciated. LIVER/GB: No significant abnormality is appreciated. PANCREAS: No significant abnormality is seen. SPLEEN: No significant abnormality is seen. ADRENALS: No significant abnormality is seen. KIDNEYS: No significant abnormality is seen. FREE AIR: No free air is visualized. RETROPERITONEAL ADENOPATHY: None visualized REPRODUCTIVE ORGANS: No significant abnormality is seen URINARY BLADDER: No significant abnormality is seen. PELVIC ADENOPATHY: None visualized. OSSEOUS STRUCTURES: No significant abnormality is seen. BOWEL: No significant abnormality is seen. Appendix has normal appearance. OTHER: No acute vascular findings. IMPRESSION: SCATTERED NONSPECIFIC SUBCENTIMETER MESENTERIC LYMPH NODES NOTED, WHICH CAN CORRELATE WITH A CLINICAL DIAGNOSIS OF GASTROENTERITIS; NO OTHER FINDINGS.
--- NOTE | 2018-12-01 19:30 | US ---
EXAMINATION TYPE: US gallbladder DATE OF EXAM: 12/01/2018 COMPARISON: NONE CLINICAL HISTORY: Pain. Pain, nausea and vomiting. EXAM MEASUREMENTS: Liver Length: 13.9 cm Gallbladder Wall: 0.3 cm CBD: 0.4 cm Right Kidney: 13.7 x 3.8 x 4.2 cm Pancreas: Obscured by bowel gas Liver: No acute findings. Gallbladder: wnl Evidence for sonographic Guzman's sign: No CBD: wnl Right Kidney: wnl IMPRESSION: NO ACUTE PROCESS.
[2018-12-01] MEDS ORDERED: PANTOPRAZOLE 40 MG/10 ML VIAL IVP STA (19:48)
[2018-12-01 20:52] VITALS: BP 110/87; PULSE 95; TEMP 98.7
[2018-12-03 10:40] LABS: Chlamydia trachomatis rRNA Not detected (Not detected); Neisseria gonorrhoeae rRNA Not detected (Not detected)
== END 2018-12-01 20:50 | disposition home or self-care (01) ==
LOC: EC 14:25
DX: K52.9 Noninfective gastroenteritis and colitis, unspecified (principal); N39.0 Urinary tract infection, site not specified; F17.200 Nicotine dependence, unspecified, uncomplicated; Z88.0 Allergy status to penicillin; Z88.8 Allergy status to other drugs, medicaments and biological substances; Z91.038 Other insect allergy status
CPT/HCPCS: 36415; 80053; 87591; 87491; 83690; 85025; 81001; 81025; 87086; 76705; 74177; 99284; 96365; 96366; 96375 ×3; 96376; 96361; 96372; J0500; J2405; J0696; C9113; Q9967

== ENCOUNTER 2019-01-04 07:22 | Emergency (ER) | payer OTHER ==
[2019-01-04] MEDS ORDERED: ACETAMINOPHEN TAB 500 MG TAB PO STA (07:50)
[2019-01-04] MEDS ORDERED: IBUPROFEN 600 MG TAB PO STA (07:50)
[2019-01-04] MEDS ORDERED: ONDANSETRON 4 MG ODT STARTER PACK 2 TAB BTL PO STA (07:59)
--- NOTE | 2019-01-04 08:01 | ED ---
Fever HPI - General Chief Complaint: Fever Stated Complaint: Fever, nauseated Time Seen by Provider: 01/04/19 07:49 Source: patient, RN notes reviewed, old records reviewed Mode of arrival: ambulatory Limitations: no limitations - History of Present Illness Initial Comments: Patient is a 21-year-old female no significant past medical history presents em ergency department today with complaints of fever chills body aches and sore throat for the past day. Patient states she took Motrin last night. She woke up today vomiting. She complains of diffuse body aches. She complains of a sore throat. She denies any chest pain shortness of breath. She's had a slight cough. She states that she did not receive the flu vaccine. Patient reports that she has no known history of sick contacts. She does work at [employer] - Related Data Previous Rx's Medication Instructions Recorded Azithromycin [Zithromax Z-pack] 250 mg PO DIRECTED #6 tab 01/04/19 Ibuprofen [Motrin] 600 mg PO Q6HR PRN #20 tab 01/04/19 Allergies Allergy/AdvReac Type Severity Reaction Status Date / Time Penicillins Allergy Rash/Hives Verified 01/04/19 08:01 venom-wasp Allergy Anaphylaxis Verified 01/04/19 08:01 SOUR CREAM Allergy Swelling Uncoded 01/04/19 07:28 Review of Systems ROS Statement: Those systems with pertinent positive or pertinent negative responses have been documented in the HPI. ROS Other: All systems not noted in ROS Statement are negative. Past Medical History Past Medical History: Asthma History of Any Multi-Drug Resistant Organisms: None Reported Past Surgical History: No Surgical Hx Reported Past Psychological History: Anxiety, Depression Smoking Status: Current some day smoker Past Alcohol Use History: None Reported Past Drug Use History: Marijuana General Exam - General Exam Comments Initial Comments: 23-year-old female. Alert and oriented 3. Patient appears just and crying. Moderate discomfort. Limitations: no limitations General appearance: alert, in no apparent distress Head exam: Present: atraumatic, normocephalic, normal inspection Eye exam: Present: normal appearance, PERRL, EOMI. Absent: scleral icterus, conjunctival injection, periorbital swelling ENT exam: Present: normal exam, mucous membranes moist. Absent: normal oropharynx (Erythematous oropharynx. Large tonsils. Exudates noted.) Neck exam: Present: normal inspection. Absent: tenderness, meningismus, lymphadenopathy Respiratory exam: Present: normal lung sounds bilaterally. Absent: respiratory distress, wheezes, rales, rhonchi, stridor Cardiovascular Exam: Present: regular rate, normal rhythm, normal heart sounds. Absent: systolic murmur, diastolic murmur, rubs, gallop, clicks GI/Abdominal exam: Present: soft, normal bowel sounds. Absent: distended, tenderness, guarding, rebound, rigid Extremities exam: Present: normal inspection, full ROM, normal capillary refill. Absent: tenderness, pedal edema, joint swelling, calf tenderness Back exam: Present: normal inspection Neurological exam: Present: alert, oriented X3, CN II-XII intact Psychiatric exam: Present: normal affect, normal mood Course Vital Signs 01/04/19 01/04/19 07:28 09:37 Temperature 99.5 F 98.4 F Pulse Rate 140 H 64 Respiratory 20 17 Rate Blood Pressure 119/65 110/61 O2 Sat by Pulse 95 96 Oximetry Medical Decision Making - Medical Decision Making 21-year-old female presents emergency room chief complaint nausea vomiting times one day, fevers noted. Patient was given Motrin, tylenol, and Zofran. Patient has improvement of her symptoms after fever came down. Patient was given rapid strep which is negative influenza testing stated. She does have significant erythema on her oropharynx exudate. Discussed possibility of mono. Patient elects not to have blood work. I discussed however to treat for bacterial pharyngitis this time with azithromycin. Patient will be advised to close follow-up with her primary care physician. Discussed return parameters. Questions were answered. Discussed reports alternating Motrin or Tylenol. Patient is given a for work. - Lab Data Lab Results 01/04/19 01/04/19 Range/Units 07:54 07:54 Influenza Type A RNA Not Detected (Not Detectd) Influenza Type B (PCR) Not Detected (Not Detectd) Group A Strep Rapid Negative (Negative) - Radiology Data Radiology results: report reviewed Chest x-rays negative for any acute cardio pulmonary processes. Disposition Clinical Impression: Pharyngitis, Fever Disposition: HOME SELF-CARE Condition: Good Instructions (If sedation given, give patient instructions): Fever in Adults (ED) Additional Instructions: Patient has a close follow-up with primary care physician. Patient should return to emergency department if any alarming signs or symptoms occur. Prescriptions: Ibuprofen [Motrin] 600 mg PO Q6HR PRN #20 tab PRN Reason: Fever Azithromycin [Zithromax Z-pack] 250 mg PO DIRECTED #6 tab Is patient prescribed a controlled substance at d/c from ED?: No Referrals: None,Stated [Primary Care Provider] - 1-2 days Shannon Anne MD [STAFF PHYSICIAN] - 1-2 days Time of Disposition: 10:07
--- NOTE | 2019-01-04 09:03 | XR ---
EXAMINATION TYPE: XR chest 2V DATE OF EXAM: 01/04/2019 COMPARISON: NONE HISTORY: Chest pain TECHNIQUE: Frontal and lateral views of the chest are obtained. FINDINGS: There is no focal air space opacity. No evidence for pneumothorax. No pleural effusion. The cardiac silhouette size is within normal limits. The osseous structures are grossly intact. IMPRESSION: 1. No acute cardiopulmonary process.
[2019-01-04 09:38] VITALS: BP 110/61; PULSE 64; RESP 17; TEMP 98.4
== END 2019-01-04 10:20 | disposition home or self-care (01) ==
LOC: EC 07:22
DX: J02.9 Acute pharyngitis, unspecified (principal); F17.200 Nicotine dependence, unspecified, uncomplicated; Z88.0 Allergy status to penicillin; Z91.030 Bee allergy status; Z91.048 Other nonmedicinal substance allergy status
CPT/HCPCS: 87081; 87430; 87502; 71046; 99284; S0119

== ENCOUNTER 2019-01-05 15:59 | Emergency (ER) | payer OTHER ==
[2019-01-05 16:13] VITALS: RESP 18
[2019-01-05] MEDS ORDERED: methylPREDNISolone SOD SUCCI 125 MG/2 ML VIAL IM ONE (16:28)
[2019-01-05] MEDS ORDERED: cefTRIAXone 1,000 MG VIAL (IM USE) IM STA (16:28)
[2019-01-05] MEDS ORDERED: BENZOCAINE SPRAY 1 CAN MUCOUS MEM STA (16:28)
[2019-01-05] MEDS ORDERED: ACETAMINOPHEN TAB 500 MG TAB PO STA (16:29)
--- NOTE | 2019-01-05 16:30 | ED ---
ENT HPI - General Chief complaint: ENT Stated complaint: Sore throat Time Seen by Provider: 01/05/19 16:13 Source: patient, RN notes reviewed, old records reviewed Mode of arrival: ambulatory Limitations: no limitations - History of Present Illness Initial comments: Patient is a 23-year-old female presents emergency times a day for reevaluation for sore throat. Patient states that she was seen here yesterday and discharged with azithromycin. She has not been able to afford the prescriptions. Patient states that she has had fevers and chills per she has been taking Motrin. She reports it's painful for her to swallow. - Related Data Previous Rx's Medication Instructions Recorded Azithromycin [Zithromax Z-pack] 250 mg PO DIRECTED #6 tab 01/04/19 Ibuprofen [Motrin] 600 mg PO Q6HR PRN #20 tab 01/04/19 Azithromycin [Zithromax Z-pack] 250 mg PO DIRECTED #6 tab 01/05/19 predniSONE 50 mg PO DAILY #5 tablet 01/05/19 Allergies Allergy/AdvReac Type Severity Reaction Status Date / Time Penicillins Allergy Rash/Hives Verified 01/05/19 16:12 venom-wasp Allergy Anaphylaxis Verified 01/05/19 16:12 SOUR CREAM Allergy Swelling Uncoded 01/05/19 16:12 Review of Systems ROS Statement: Those systems with pertinent positive or pertinent negative responses have been documented in the HPI. ROS Other: All systems not noted in ROS Statement are negative. Past Medical History Past Medical History: Asthma History of Any Multi-Drug Resistant Organisms: None Reported Past Surgical History: No Surgical Hx Reported Past Psychological History: Anxiety, Depression Smoking Status: Current every day smoker Past Alcohol Use History: None Reported Past Drug Use History: Marijuana General Exam - General Exam Comments Initial Comments: 21-year-old female. Alert and oriented 3. Patient appears anxious. Crying. General: Well appearing, well nourished, in no distress. Oriented x 3, normal mood and affect . Ambulating without difficulty. Skin: Good turgor, no rash, unusual bruising or prominent lesions Hair: Normal texture and distribution. HEENT: Head: Normocephalic, atraumatic, no visible or palpable masses, depressions, or scaring. Eyes: Visual acuity intact, conjunctiva clear, sclera non-icteric, EOM intact, PERRL. Ears: EACs clear, TMs translucent & cone of light visualized. hearing intact. Nose: No external lesions, mucosa non-inflamed, septum and turbinates normal Mouth: Mucous membranes moist, no mucosal lesions. Teeth/Gums: No obvious caries or periodontal disease. No gingival inflammation or significant resorption. Pharynx: Bilateral tonsillar enlargement. Evidence of erythema and exudate. No evidence of peritonsillar abscess. Neck: Supple, without lesions, bruits, or adenopathy, thyroid non-enlarged and non-tender Heart: No cardiomegaly or thrills; regular rate and rhythm, no murmur or gallop Lungs: Clear to auscultation and percussion Abdomen: Bowel sounds normal, no tenderness, organomegaly, masses, or hernia Back: Spine normal without deformity or tenderness, no CVA tenderness Extremities: No amputations or deformities, cyanosis, edema or varicosities, peripheral pulses intact Musculoskeletal: Normal gait and station. No misalignment, asymmetry, crepitation, defects, tenderness, masses, effusions, decreased range of motion, instability, atrophy or abnormal strength or tone in the head, neck, spine, ribs, pelvis or extremities. Neurologic: CN 2-12 normal. Sensation to pain, touch, and proprioception normal. DTRs normal in upper and lower extremities. No pathologic reflexes. Psychiatric: Oriented X3, intact recent and remote memory, judgment and insight, normal mood and affect. Limitations: no limitations Course Vital Signs 01/05/19 16:10 Temperature 98.3 F Pulse Rate 117 H Respiratory 18 Rate Blood Pressure 121/86 O2 Sat by Pulse 99 Oximetry Medical Decision Making - Medical Decision Making This patient's a 23-year-old female presents today with 3 days of severe sore throat nausea and vomiting. She has significant tonsillar hypertrophy with exudate noted. Her rapid strep was negative yesterday. Culture is still pending at this time. At this time patient's heterophile test is negative. Blood cell count was noted to be elevated. Patient does have mildly elevated bilirubin. She has no right upper quadrant tenderness time. Discussed with Patient Patient should have her bilirubin rechecked. Patient sleeping complaint is a sore throat. I am clinically concern for mononucleosis. However with negative throat culture at this time I still would like to up with the Patient on azithromycin to cover for atypical bacteria. She's given 1 dose of Rocephin and ED. I discussed using viscous lidocaine to help coat the throat. Discussed the importance that she's taking the antibiotic as directed and using the steroids for helping with the tonsillar swelling. Patient agrees to treatment plan will comply. - Lab Data Result diagrams: 01/05/19 17:08 01/05/19 17:08 Lab Results 01/05/19 01/05/19 01/05/19 Range/Units 17:08 17:08 17:08 WBC 18.6 H (3.8-10.6) k/uL RBC 4.75 (3.80-5.40) m/uL Hgb 13.8 (11.4-16.0) gm/dL Hct 39.8 (34.0-46.0) % MCV 83.9 (80.0-100.0) fL MCH 29.1 (25.0-35.0) pg MCHC 34.7 (31.0-37.0) g/dL RDW 12.3 (11.5-15.5) % Plt Count 250 (150-450) k/uL Neutrophils % 85 % Lymphocytes % 8 % Monocytes % 5 % Eosinophils % 1 % Basophils % 0 % Neutrophils # 15.9 H (1.3-7.7) k/uL Lymphocytes # 1.4 (1.0-4.8) k/uL Monocytes # 0.9 (0-1.0) k/uL Eosinophils # 0.2 (0-0.7) k/uL Basophils # 0.0 (0-0.2) k/uL Sodium 139 (137-145) mmol/L Potassium 3.6 (3.5-5.1) mmol/L Chloride 104 (98-107) mmol/L Carbon Dioxide 25 (22-30) mmol/L Anion Gap 10 mmol/L BUN 13 (7-17) mg/dL Creatinine 0.50 L (0.52-1.04) mg/dL Est GFR (CKD-EPI)AfAm >90 (>60 ml/min/1.73 sqM) Est GFR (CKD-EPI)NonAf >90 (>60 ml/min/1.73 sqM) Glucose 79 (74-99) mg/dL Calcium 9.4 (8.4-10.2) mg/dL Total Bilirubin 2.4 H (0.2-1.3) mg/dL AST 23 (14-36) U/L ALT 30 (9-52) U/L Alkaline Phosphatase 95 (38-126) U/L Total Protein 7.8 (6.3-8.2) g/dL Albumin 4.5 (3.5-5.0) g/dL Heterophile Antibody Negative (Negative) Disposition Clinical Impression: Pharyngitis Disposition: HOME SELF-CARE Condition: Good Instructions (If sedation given, give patient instructions): Mononucleosis (ED), Pharyngitis (ED) Additional Instructions: Patient is alternate Motrin and Tylenol. Take the medication as prescribed. Return to emergency department if any alarming signs or symptoms occur. Prescriptions: predniSONE 50 mg PO DAILY #5 tablet Azithromycin [Zithromax Z-pack] 250 mg PO DIRECTED #6 tab Is patient prescribed a controlled substance at d/c from ED?: No Referrals: None,Stated [Primary Care Provider] - 1-2 days Shannon Anne MD [STAFF PHYSICIAN] - 1-2 days Time of Disposition: 17:51
[2019-01-05] MEDS ORDERED: ONDANSETRON 4 MG/2 ML VIAL IVP STA (16:49)
[2019-01-05] MEDS ORDERED: methylPREDNISolone SOD SUCCI 125 MG/2 ML VIAL IV STA (16:49)
[2019-01-05] MEDS ORDERED: SODIUM CHLORIDE 0.9% 1,000 ML IV ONE (16:50)
[2019-01-05] MEDS ORDERED: LIDOCAINE VISCOUS 2% 15 ML CUP MUCOUS MEM ONE (16:55)
[2019-01-05 17:22] LABS: Basophils % (A) 0 %; Eosinophils # (A) 0.2 k/uL (0-0.7); Eosinophils % (A) 1 %; HCT 39.8 % (34.0-46.0); HGB 13.8 gm/dL (11.4-16.0); Lymphocytes # (A) 1.4 k/uL (1.0-4.8); Lymphocytes % (A) 8 %; MCH 29.1 pg (25.0-35.0); MCHC 34.7 g/dL (31.0-37.0); MCV 83.9 fL (80.0-100.0); Mean Platelet Volume 7.1; Monocytes # (A) 0.9 k/uL (0-1.0); Monocytes % (A) 5 %; Neutrophils # (A) 15.9 k/uL (1.3-7.7); Neutrophils % (A) 85 %; Platelet Count 250 k/uL (150-450); RBC 4.75 m/uL (3.80-5.40); RDW 12.3 % (11.5-15.5); WBC 18.6 k/uL (3.8-10.6)
[2019-01-05 17:33] LABS: ALT 30 U/L (9-52); AST 23 U/L (14-36); Albumin 4.5 g/dL (3.5-5.0); Alkaline Phosphatase 95 U/L (38-126); Anion Gap 10 mmol/L; Blood Urea Nitrogen 13 mg/dL (7-17); Calcium 9.4 mg/dL (8.4-10.2); Carbon Dioxide 25 mmol/L (22-30); Chloride 104 mmol/L (98-107); Glucose 79 mg/dL (74-99); Potassium 3.6 mmol/L (3.5-5.1); Sodium 139 mmol/L (137-145); Total Bilirubin 2.4 mg/dL (0.2-1.3); Total Protein 7.8 g/dL (6.3-8.2)
[2019-01-05] MEDS ORDERED: cefTRIAXone IN SWFI 1,000 MG/10 ML SYRINGE IVP STA (17:48)
[2019-01-05 18:55] VITALS: BP 111/53; PULSE 100; TEMP 98.9
== END 2019-01-05 18:55 | disposition home or self-care (01) ==
LOC: EC 15:59
DX: J02.9 Acute pharyngitis, unspecified (principal); R11.2 Nausea with vomiting, unspecified; J35.1 Hypertrophy of tonsils; R79.89 Other specified abnormal findings of blood chemistry; R71.8 Other abnormality of red blood cells; F17.200 Nicotine dependence, unspecified, uncomplicated; Z88.0 Allergy status to penicillin; Z91.038 Other insect allergy status; Z91.018 Allergy to other foods; Z53.8 Procedure and treatment not carried out for other reasons
CPT/HCPCS: 99283; 96374; 96375 ×2; 96361; 36415; 80053; 85025; 86308; J2930; J2405; J0696

== ENCOUNTER 2019-12-11 20:22 | Emergency (ER) | payer OTHER ==
[2019-12-11 20:31] VITALS: RESP 20
[2019-12-11] MEDS ORDERED: SODIUM CHLORIDE 0.9% 1,000 ML IV STA (20:36)
[2019-12-11 21:33] LABS: Appearance,Urine Clear (Clear); Bacteria,Urine Rare /hpf; Bilirubin,Urine Negative (Negative); Blood,Urine Trace (Negative); Color,Urine Light Yellow; Glucose,Urine (UA) Negative (Negative); Ketones,Urine Negative (Negative); Leukocyte Esterase,Urine Negative (Negative); Mucus,Urine Rare /hpf; Nitrite,Urine Negative (Negative); PH, Urine 5.5 (5.0-8.0); Protein,Urine Negative (Negative); RBC,Urine 1 /hpf (0-5); Specific Gravity,Urine 1.011 (1.001-1.035); Squamous Epithelial Cell,Urine 1 /hpf (0-4); Urobilinogen,Urine <2.0 mg/dL (<2.0); WBC,Urine 3 /hpf (0-5)
--- NOTE | 2019-12-11 21:52 | XR ---
EXAMINATION TYPE: XR chest 2V DATE OF EXAM: 12/11/2019 COMPARISON: 01/04/2019 HISTORY: Cough TECHNIQUE: FINDINGS: Heart and mediastinum are normal. Lungs are clear. Diaphragm is normal. Bony thorax appears normal. IMPRESSION: Normal chest. No change.
--- NOTE | 2019-12-11 22:11 | ED ---
General Adult HPI - General Chief complaint: Nausea/Vomiting/Diarrhea Stated complaint: Diff Breathing Time Seen by Provider: 12/11/19 20:33 Source: patient, EMS, RN notes reviewed Mode of arrival: EMS Limitations: no limitations - History of Present Illness Initial comments: 24-year-old female without any significant past medical history presents to the emergency department for acutely of cough for 2 days. Patient states she has also felt febrile. She is also had nausea associated with the cough and coughs so hard that she throws up mucus. She felt dizzy at work so called an ambulance. Denies chest pain or shortness of breath. Denies any history of asthma.Patient has no other complaints at this time including shortness of breath, chest pain, abdominal pain, nausea or vomiting, headache, or visual changes. - Related Data Previous Rx's Medication Instructions Recorded Azithromycin [Zithromax Z-pack] 250 mg PO DIRECTED #6 tab 01/04/19 Ibuprofen [Motrin] 600 mg PO Q6HR PRN #20 tab 01/04/19 Azithromycin [Zithromax Z-pack] 250 mg PO DIRECTED #6 tab 01/05/19 predniSONE 50 mg PO DAILY #5 tablet 01/05/19 Allergies Allergy/AdvReac Type Severity Reaction Status Date / Time Penicillins Allergy Rash/Hives Verified 01/05/19 16:12 venom-wasp Allergy Anaphylaxis Verified 01/05/19 16:12 SOUR CREAM Allergy Swelling Uncoded 01/05/19 16:12 Review of Systems ROS Statement: Those systems with pertinent positive or pertinent negative responses have been documented in the HPI. ROS Other: All systems not noted in ROS Statement are negative. Past Medical History Past Medical History: Asthma History of Any Multi-Drug Resistant Organisms: None Reported Past Surgical History: No Surgical Hx Reported Past Psychological History: Anxiety, Depression Smoking Status: Current every day smoker Past Alcohol Use History: None Reported Past Drug Use History: Marijuana General Exam Limitations: no limitations General appearance: alert, in no apparent distress Head exam: Present: atraumatic, normocephalic, normal inspection Eye exam: Present: normal appearance, PERRL, EOMI. Absent: scleral icterus, conjunctival injection, periorbital swelling ENT exam: Present: normal exam, mucous membranes moist Neck exam: Present: normal inspection, full ROM. Absent: tenderness, meningismus, lymphadenopathy Respiratory exam: Present: normal lung sounds bilaterally. Absent: respiratory distress, wheezes, rales, rhonchi, stridor Cardiovascular Exam: Present: regular rate, normal rhythm, normal heart sounds. Absent: systolic murmur, diastolic murmur, rubs, gallop, clicks GI/Abdominal exam: Present: soft, normal bowel sounds. Absent: distended, tenderness, guarding, rebound, rigid Neurological exam: Present: alert Course Vital Signs 12/11/19 20:23 Temperature 98.7 F Pulse Rate 103 H Respiratory 20 Rate Blood Pressure 137/74 O2 Sat by Pulse 100 Oximetry Medical Decision Making - Medical Decision Making Vitals are stable. Patient is tachycardic but is anxious at this time and coughing one vitals are taken. Urinalysis unremarkable. HCG is negative. Influenza A is detected. Chest x-ray was obtained which showed no acute process. Discussed risks first benefits of Tamiflu. As patient already has nausea she will not be given Tamiflu and is agreeable to this. Blood work was initially ordered however patient refused this after the second poke. She will is orally rehydrating. She will follow up with primary care in 1-2 days and return if she has any worsening symptoms.I discussed this case with attending Dr. Camacho who agrees with this assessment and treatment plan. - Lab Data Lab Results 12/11/19 12/11/19 12/11/19 Range/Units 21:04 21:22 21:22 Urine Color Light Yellow Urine Appearance Clear (Clear) Urine pH 5.5 (5.0-8.0) Ur Specific [place] 1.011 (1.001-1.035) Urine Protein Negative (Negative) Urine Glucose (UA) Negative (Negative) Urine Ketones Negative (Negative) Urine Blood Trace H (Negative) Urine Nitrite Negative (Negative) Urine Bilirubin Negative (Negative) Urine Urobilinogen <2.0 (<2.0) mg/dL Ur Leukocyte Esterase Negative (Negative) Urine RBC 1 (0-5) /hpf Urine WBC 3 (0-5) /hpf Ur Squamous Epith Cells 1 (0-4) /hpf Urine Bacteria Rare H (None) /hpf Urine Mucus Rare H (None) /hpf Urine HCG, Qual Not Detected (Not Detectd) Influenza Type A RNA Detected H (Not Detectd) Influenza Type B (PCR) Not Detected (Not Detectd) Disposition Clinical Impression: Influenza Disposition: HOME SELF-CARE Condition: Good Instructions (If sedation given, give patient instructions): Influenza (ED) Additional Instructions: Please take Motrin and Tylenol as needed for fever. Take [id number] cold and flu medications. Make sure not to take too much Motrin or Tylenol while using these medications as they may contain Motrin and Tylenol. Follow-up with primary care in 1-2 days. Return if you have any worsening symptoms. Is patient prescribed a controlled substance at d/c from ED?: No Referrals: Becky Ring MD [REFERRING] - 1-2 days Time of Disposition: 22:09
[2019-12-11 22:17] VITALS: BP 138/72; PULSE 114; TEMP 98.5
== END 2019-12-11 22:23 | disposition home or self-care (01) ==
LOC: EC 20:22
DX: J10.1 Influenza due to other identified influenza virus with other respiratory manifestations (principal); R00.0 Tachycardia, unspecified; R11.0 Nausea; F17.200 Nicotine dependence, unspecified, uncomplicated; Z88.0 Allergy status to penicillin; Z91.018 Allergy to other foods; Z91.02 Food additives allergy status; Z87.09 Personal history of other diseases of the respiratory system; Z53.20 Procedure and treatment not carried out because of patient's decision for unspecified reasons
CPT/HCPCS: 71046; 81001; 81025; 87502; 99284

== ENCOUNTER 2020-03-02 10:29 | Emergency (ER) | payer OTHER ==
[2020-03-02 10:37] VITALS: TEMP 97.9
[2020-03-02] MEDS ORDERED: ONDANSETRON 4 MG/2 ML VIAL IVP STA (11:19)
[2020-03-02] MEDS ORDERED: LORazepam 2 MG/ML INJ IV STA (11:19)
[2020-03-02] MEDS ORDERED: PANTOPRAZOLE 40 MG/10 ML VIAL IVP STA (11:19)
[2020-03-02] MEDS ORDERED: SODIUM CHLORIDE 0.9% 1,000 ML IV STA ×2 (11:19)
[2020-03-02 11:41] LABS: Basophils # (A) 0.1 k/uL (0-0.2); Basophils % (A) 0 %; Eosinophils # (A) 0.1 k/uL (0-0.7); Eosinophils % (A) 1 %; HCT 41.6 % (34.0-46.0); HGB 14.8 gm/dL (11.4-16.0); Lymphocytes % (A) 25 %; MCH 30.1 pg (25.0-35.0); MCHC 35.6 g/dL (31.0-37.0); MCV 84.5 fL (80.0-100.0); Mean Platelet Volume 7.8; Monocytes # (A) 0.7 k/uL (0-1.0); Monocytes % (A) 6 %; Neutrophils % (A) 66 %; Platelet Count 303 k/uL (150-450); RBC 4.92 m/uL (3.80-5.40); WBC 12.1 k/uL (3.8-10.6)
[2020-03-02 11:49] LABS: ALT 19 U/L (4-34); AST 26 U/L (14-36); African American GFR (CKD) >90 (>60 ml/min/1.73 sqM); Alkaline Phosphatase 75 U/L (38-126); Amylase 42 U/L (30-110); Anion Gap 14 mmol/L; Blood Urea Nitrogen 9 mg/dL (7-17); Calcium 9.6 mg/dL (8.4-10.2); Carbon Dioxide 22 mmol/L (22-30); Chloride 104 mmol/L (98-107); Glucose 95 mg/dL (74-99); Non-African American GFR(CKD) >90 (>60 ml/min/1.73 sqM); Potassium 3.6 mmol/L (3.5-5.1); Sodium 140 mmol/L (137-145); Total Bilirubin 1.1 mg/dL (0.2-1.3); Total Protein 8.2 g/dL (6.3-8.2)
--- NOTE | 2020-03-02 11:50 | XR ---
EXAMINATION TYPE: XR KUB DATE OF EXAM: 03/02/2020 COMPARISON: NONE HISTORY: Pain TECHNIQUE: Single supine KUB image of the abdomen is obtained FINDINGS: Small bowel demonstrates no evidence for dilatation or air fluid levels. Gas and fecal material is seen in non-distended colon. No convincing evidence for pneumoperitoneum. No unusual calcifications. The lung bases are clear. The osseous structures are intact. IMPRESSION: 1. Overall nonobstructive bowel gas pattern.
[2020-03-02 11:57] LABS: Appearance,Urine Cloudy (Clear); Bacteria,Urine Rare /hpf; Bilirubin,Urine Negative (Negative); Blood,Urine Trace (Negative); Color,Urine Yellow; Glucose,Urine (UA) Negative (Negative); Ketones,Urine Negative (Negative); Leukocyte Esterase,Urine Moderate (Negative); Mucus,Urine Rare /hpf; Nitrite,Urine Negative (Negative); PH, Urine 6.5 (5.0-8.0); Protein,Urine Negative (Negative); RBC,Urine 2 /hpf (0-5); Specific Gravity,Urine 1.013 (1.001-1.035); Squamous Epithelial Cell,Urine 2 /hpf (0-4); Urobilinogen,Urine <2.0 mg/dL (<2.0); WBC,Urine 4 /hpf (0-5)
[2020-03-02 12:05] LABS: Partial Thromboplastin Time 24.9 sec (22.0-30.0); Prothrombin Time 10.1 sec (9.0-12.0)
--- NOTE | 2020-03-02 12:30 | ED ---
Nausea/Vomiting/Diarrhea HPI - General Chief complaint: Nausea/Vomiting/Diarrhea Stated complaint: Vomiting Time Seen by Provider: 03/02/20 11:05 Source: patient, RN notes reviewed, old records reviewed Mode of arrival: ambulatory Limitations: no limitations - History of Present Illness Initial comments: Patient is a 24-year-old female presents emergency room today complaining of the abdominal pain, reports is diffuse. She reports symptoms of nausea and vomiting for the past 2 days. She also states she hasn't diarrhea. Patient denies any recent fevers or chills. Denies any previous surgical history. She is due for her menstrual cycle next couple days. Patient is very anxious, hyperventilating when entering exam room. - Related Data Previous Rx's Medication Instructions Recorded Azithromycin [Zithromax Z-pack] 250 mg PO DIRECTED #6 tab 01/04/19 Ibuprofen [Motrin] 600 mg PO Q6HR PRN #20 tab 01/04/19 Azithromycin [Zithromax Z-pack] 250 mg PO DIRECTED #6 tab 01/05/19 predniSONE 50 mg PO DAILY #5 tablet 01/05/19 Famotidine [Pepcid] 20 mg PO DAILY #14 tablet 03/02/20 Ondansetron [Zofran] 4 mg PO Q8HR PRN #12 tab 03/02/20 Allergies Allergy/AdvReac Type Severity Reaction Status Date / Time Penicillins Allergy Rash/Hives Verified 03/02/20 10:37 venom-wasp Allergy Anaphylaxis Verified 03/02/20 10:37 SOUR CREAM Allergy Swelling Uncoded 03/02/20 10:37 Review of Systems ROS Statement: Those systems with pertinent positive or pertinent negative responses have been documented in the HPI. ROS Other: All systems not noted in ROS Statement are negative. Past Medical History Past Medical History: Asthma History of Any Multi-Drug Resistant Organisms: None Reported Past Surgical History: No Surgical Hx Reported Past Psychological History: Anxiety, Depression Smoking Status: Current every day smoker Past Alcohol Use History: None Reported Past Drug Use History: Marijuana General Exam - General Exam Comments Initial Comments: 24-year-old female. Alert and oriented 3. Anxious, hyperventilating. Limitations: no limitations General appearance: alert, in no apparent distress Head exam: Present: atraumatic, normocephalic, normal inspection Eye exam: Present: normal appearance, PERRL, EOMI. Absent: scleral icterus, conjunctival injection, periorbital swelling ENT exam: Present: normal exam, mucous membranes moist Neck exam: Present: normal inspection. Absent: tenderness, meningismus, lymphadenopathy Respiratory exam: Present: normal lung sounds bilaterally. Absent: respiratory distress, wheezes, rales, rhonchi, stridor Cardiovascular Exam: Present: regular rate, normal rhythm, normal heart sounds. Absent: systolic murmur, diastolic murmur, rubs, gallop, clicks GI/Abdominal exam: Present: soft, tenderness (diffuse) Extremities exam: Present: normal inspection Back exam: Present: normal inspection Neurological exam: Present: alert, oriented X3, CN II-XII intact Psychiatric exam: Present: normal affect, normal mood Skin exam: Present: warm, dry, intact, normal color. Absent: rash Course Vital Signs 03/02/20 03/02/20 03/02/20 10:34 11:37 13:41 Temperature 97.9 F Pulse Rate 103 H 93 70 Respiratory 18 16 18 Rate Blood Pressure 115/79 145/75 134/68 O2 Sat by Pulse 99 98 98 Oximetry Medical Decision Making - Medical Decision Making 24 year old female presents with diffuse abdominal pain, nausea, vomiting for 2 days. Given IV fluids and labs reviewed and normal. She was anxious and hyperventilating in ED, given ativan. She continued to have pain and after labs were reported to her she continued to have tenderness. CT then ordered and completed and shows wenteritis. Discussed PCP follow up and to have clear lliquid diet. Discussed return parameters. - Lab Data Result diagrams: 03/02/20 10:57 03/02/20 10:57 Lab Results 03/02/20 03/02/20 03/02/20 Range/Units 10:57 10:57 10:57 WBC 12.1 H (3.8-10.6) k/uL RBC 4.92 (3.80-5.40) m/uL Hgb 14.8 (11.4-16.0) gm/dL Hct 41.6 (34.0-46.0) % MCV 84.5 (80.0-100.0) fL MCH 30.1 (25.0-35.0) pg MCHC 35.6 (31.0-37.0) g/dL RDW 12.0 (11.5-15.5) % Plt Count 303 (150-450) k/uL Neutrophils % 66 % Lymphocytes % 25 % Monocytes % 6 % Eosinophils % 1 % Basophils % 0 % Neutrophils # 8.0 H (1.3-7.7) k/uL Lymphocytes # 3.0 (1.0-4.8) k/uL Monocytes # 0.7 (0-1.0) k/uL Eosinophils # 0.1 (0-0.7) k/uL Basophils # 0.1 (0-0.2) k/uL PT 10.1 (9.0-12.0) sec INR 1.0 (<1.2) APTT 24.9 (22.0-30.0) sec Sodium (137-145) mmol/L Potassium (3.5-5.1) mmol/L Chloride (98-107) mmol/L Carbon Dioxide (22-30) mmol/L Anion Gap mmol/L BUN (7-17) mg/dL Creatinine (0.52-1.04) mg/dL Est GFR (CKD-EPI)AfAm (>60 ml/min/1.73 sqM) Est GFR (CKD-EPI)NonAf (>60 ml/min/1.73 sqM) Glucose (74-99) mg/dL Plasma Lactic Acid [place] (0.7-2.0) mmol/L Calcium (8.4-10.2) mg/dL Total Bilirubin (0.2-1.3) mg/dL AST (14-36) U/L ALT (4-34) U/L Alkaline Phosphatase (38-126) U/L Total Protein (6.3-8.2) g/dL Albumin (3.5-5.0) g/dL Amylase (30-110) U/L Lipase (23-300) U/L Urine Color Yellow Urine Appearance Cloudy H (Clear) Urine pH 6.5 (5.0-8.0) Ur Specific [place] 1.013 (1.001-1.035) Urine Protein Negative (Negative) Urine Glucose (UA) Negative (Negative) Urine Ketones Negative (Negative) Urine Blood Trace H (Negative) Urine Nitrite Negative (Negative) Urine Bilirubin Negative (Negative) Urine Urobilinogen <2.0 (<2.0) mg/dL Ur Leukocyte Esterase Moderate H (Negative) Urine RBC 2 (0-5) /hpf Urine WBC 4 (0-5) /hpf Ur Squamous Epith Cells 2 (0-4) /hpf Urine Bacteria Rare H (None) /hpf Urine Mucus Rare H (None) /hpf Urine HCG, Qual (Not Detectd) 03/02/20 03/02/20 03/02/20 Range/Units 10:57 10:57 10:57 WBC (3.8-10.6) k/uL RBC (3.80-5.40) m/uL Hgb (11.4-16.0) gm/dL Hct (34.0-46.0) % MCV (80.0-100.0) fL MCH (25.0-35.0) pg MCHC (31.0-37.0) g/dL RDW (11.5-15.5) % Plt Count (150-450) k/uL Neutrophils % % Lymphocytes % % Monocytes % % Eosinophils % % Basophils % % Neutrophils # (1.3-7.7) k/uL Lymphocytes # (1.0-4.8) k/uL Monocytes # (0-1.0) k/uL Eosinophils # (0-0.7) k/uL Basophils # (0-0.2) k/uL PT (9.0-12.0) sec INR (<1.2) APTT (22.0-30.0) sec Sodium 140 (137-145) mmol/L Potassium 3.6 (3.5-5.1) mmol/L Chloride 104 (98-107) mmol/L Carbon Dioxide 22 (22-30) mmol/L Anion Gap 14 mmol/L BUN 9 (7-17) mg/dL Creatinine 0.57 (0.52-1.04) mg/dL Est GFR (CKD-EPI)AfAm >90 (>60 ml/min/1.73 sqM) Est GFR (CKD-EPI)NonAf >90 (>60 ml/min/1.73 sqM) Glucose 95 (74-99) mg/dL Plasma Lactic Acid [place] 1.5 (0.7-2.0) mmol/L Calcium 9.6 (8.4-10.2) mg/dL Total Bilirubin 1.1 (0.2-1.3) mg/dL AST 26 (14-36) U/L ALT 19 (4-34) U/L Alkaline Phosphatase 75 (38-126) U/L Total Protein 8.2 (6.3-8.2) g/dL Albumin 5.0 (3.5-5.0) g/dL Amylase 42 (30-110) U/L Lipase 36 (23-300) U/L Urine Color Urine Appearance (Clear) Urine pH (5.0-8.0) Ur Specific [place] (1.001-1.035) Urine Protein (Negative) Urine Glucose (UA) (Negative) Urine Ketones (Negative) Urine Blood (Negative) Urine Nitrite (Negative) Urine Bilirubin (Negative) Urine Urobilinogen (<2.0) mg/dL Ur Leukocyte Esterase (Negative) Urine RBC (0-5) /hpf Urine WBC (0-5) /hpf Ur Squamous Epith Cells (0-4) /hpf Urine Bacteria (None) /hpf Urine Mucus (None) /hpf Urine HCG, Qual Not Detected (Not Detectd) - Radiology Data Radiology results: report reviewed Normal KUB, CT abdomen and pelvis with contrast shows jejunal enteritis. Disposition Clinical Impression: Enteritis Disposition: HOME SELF-CARE Condition: Good Instructions (If sedation given, give patient instructions): Enteritis (ED) Additional Instructions: Patient should have a clear liquid diet for the next 2 days and then advance to bananas, rice, applesauce and toast diet. Slowly advance diet from that point forward. Taking the nausea medicine and antacid medication as prescribed. Prescriptions: Famotidine [Pepcid] 20 mg PO DAILY #14 tablet Ondansetron [Zofran] 4 mg PO Q8HR PRN #12 tab PRN Reason: Nausea Is patient prescribed a controlled substance at d/c from ED?: No Referrals: None,Stated [Primary Care Provider] - 1-2 days Time of Disposition: 13:36
[2020-03-02] MEDS ORDERED: diphenhydrAMINE 50 MG/ML 1 ML VIAL IVP STA (12:36)
[2020-03-02] MEDS ORDERED: METOCLOPRAMIDE 5 MG/ML 2 ML VIAL IVP STA (12:36)
--- NOTE | 2020-03-02 13:26 | CT ---
EXAMINATION TYPE: CT abdomen pelvis w con DATE OF EXAM: 03/02/2020 COMPARISON: 12/01/2018 HISTORY: Diffuse abdominal pain CT DLP: 1273.7 mGycm CONTRAST: CT scan of the abdomen and pelvis is performed without Oral Contrast and with IV Contrast, patient in jected with 100 ml mL of Isovue 300. FINDINGS: LUNG BASES-: No visible nodule. No infiltrate. LIVER/GB: No calcified gallstones. No space occupying hepatic lesion. Biliary tree is of normal ca liber. PANCREAS: No inflammation. No distinct mass. SPLEEN: No splenic enlargement. No lesion seen. ADRENALS: No nodule. No thickening. KIDNEYS/BLADDER: No hydronephrosis. No nephrolithiasis. No distinct renal mass. Urinary bladder g rossly unremarkable. BOWEL: Normal appendix. Normal bowel caliber. Wall thickening left upper quadrant jejunal loops may reflect enteritis. Correlate clinically. GENITAL ORGANS: No gross abnormality. LYMPH NODES: No greater than 1cm abdominal or pelvic lymph nodes are appreciated. AORTA: No significant abnormality. OSSEOUS STRUCTURES: No significant abnormality is seen. OTHER: No significant additional abnormality is seen. IMPRESSION: 1. Correlate for jejunal enteritis.
[2020-03-02 13:47] VITALS: BP 134/68; PULSE 70; RESP 18
== END 2020-03-02 13:41 | disposition home or self-care (01) ==
LOC: EC 10:29
DX: K52.9 Noninfective gastroenteritis and colitis, unspecified (principal); F17.200 Nicotine dependence, unspecified, uncomplicated; Z88.0 Allergy status to penicillin; Z91.030 Bee allergy status; Z91.018 Allergy to other foods
CPT/HCPCS: 36415; 80053; 82150; 83605; 83690; 85025; 85610; 85730; 81001; 81025; 74018; 74177; 99285; 96374; 96375 ×4; 96361; J2060; J1200; J2765; J2405; C9113; Q9967

== ENCOUNTER 2020-03-04 06:17 | Emergency (ER) | payer OTHER ==
[2020-03-04 06:29] VITALS: RESP 20; TEMP 98.1
[2020-03-04] MEDS ORDERED: diphenhydrAMINE 50 MG/ML 1 ML VIAL IVP STA (06:40)
[2020-03-04] MEDS ORDERED: MORPHINE SULFATE 4 MG/ML SYRINGE IV STA (06:40)
[2020-03-04] MEDS ORDERED: ONDANSETRON 4 MG/2 ML VIAL IVP STA (06:40)
[2020-03-04] MEDS ORDERED: SODIUM CHLORIDE 0.9% 2,000 ML IV STA (06:40)
[2020-03-04] MEDS ORDERED: FAMOTIDINE 20 MG/2 ML VIAL IV STA (06:41)
--- NOTE | 2020-03-04 06:43 | ED ---
General Adult HPI - General Chief complaint: Nausea/Vomiting/Diarrhea Stated complaint: Vomitting Time Seen by Provider: 03/04/20 06:32 Source: patient, RN notes reviewed, old records reviewed Mode of arrival: wheelchair Limitations: no limitations - History of Present Illness Initial comments: This a 24-year-old female presents emergency Department with chief complaint of nausea vomiting abdominal pain. Patient states it started 4 days ago seen [facility] from 2 days ago in which she had CT, lab work. She states she is feeling better upon discharge but states that symptoms worsened or returned again last night. Patient states she has some epigastric discomfort. She states it feels a burning sensation. She denies any back pain or any chest pain at this time. Patient states that she has been dry heaving, emesis includes bile in phlegm. Patient denies any fevers or chills no prior abdominal surgeries. Patient denies dysuria, hematuria denies any chance . No diarrhea no constipation at this time. - Related Data Previous Rx's Medication Instructions Recorded Azithromycin [Zithromax Z-pack] 250 mg PO DIRECTED #6 tab 01/04/19 Ibuprofen [Motrin] 600 mg PO Q6HR PRN #20 tab 01/04/19 Azithromycin [Zithromax Z-pack] 250 mg PO DIRECTED #6 tab 01/05/19 predniSONE 50 mg PO DAILY #5 tablet 01/05/19 Famotidine [Pepcid] 20 mg PO DAILY #14 tablet 03/02/20 Ondansetron [Zofran] 4 mg PO Q8HR PRN #12 tab 03/02/20 Famotidine [Pepcid] 20 mg PO BID #28 tablet 03/04/20 Ondansetron Odt [Zofran Odt] 4 mg PO Q8HR PRN #10 tab 03/04/20 Allergies Allergy/AdvReac Type Severity Reaction Status Date / Time Penicillins Allergy Rash/Hives Verified 03/04/20 06:29 venom-wasp Allergy Anaphylaxis Verified 03/04/20 06:29 SOUR CREAM Allergy Swelling Uncoded 03/04/20 06:29 Review of Systems ROS Statement: Those systems with pertinent positive or pertinent negative responses have been documented in the HPI. ROS Other: All systems not noted in ROS Statement are negative. Past Medical History Past Medical History: Asthma History of Any Multi-Drug Resistant Organisms: None Reported Past Surgical History: No Surgical Hx Reported Past Psychological History: Anxiety, Depression Smoking Status: Current every day smoker Past Alcohol Use History: None Reported Past Drug Use History: Marijuana General Exam Limitations: no limitations General appearance: alert, in no apparent distress, anxious Head exam: Present: atraumatic, normocephalic, normal inspection Eye exam: Present: normal appearance, PERRL, EOMI. Absent: scleral icterus, conjunctival injection, periorbital swelling ENT exam: Present: normal exam, normal oropharynx, mucous membranes moist Neck exam: Present: normal inspection, full ROM. Absent: tenderness, meningismus, lymphadenopathy Respiratory exam: Present: normal lung sounds bilaterally. Absent: respiratory distress, wheezes, rales, rhonchi, stridor Cardiovascular Exam: Present: regular rate, normal rhythm, normal heart sounds. Absent: systolic murmur, diastolic murmur, rubs, gallop, clicks GI/Abdominal exam: Present: soft, tenderness (Mild to moderate epigastric tenderness remaining abdomen is soft and nontender), normal bowel sounds. Absent: distended, guarding, rebound, rigid Back exam: Absent: CVA tenderness (R), CVA tenderness (L) Neurological exam: Present: alert, oriented X3, CN II-XII intact Psychiatric exam: Present: anxious Skin exam: Present: warm, dry, intact, normal color. Absent: rash Course Vital Signs 03/04/20 03/04/20 06:26 07:54 Temperature 98.1 F Pulse Rate 98 86 Respiratory 20 20 Rate Blood Pressure 128/82 135/87 O2 Sat by Pulse 99 98 Oximetry - Reevaluation(s) Reevaluation #1: 03/04/20 08:35 Patient reevaluated, resting comfortably no distress. Updated on results. Medical Decision Making - Medical Decision Making 24 up from for nausea vomiting. Patient's prior records were reviewed CT showed evidence of general enteritis. Patient was hydrated, given antiemetics and feels greatly improved. She feels comfortable discharged with close follow-up we did discuss slowly introducing liquid diet and progress as tolerated. - Lab Data Result diagrams: 03/04/20 06:58 03/04/20 06:58 Lab Results 03/04/20 03/04/20 03/04/20 Range/Units 06:58 06:58 06:58 WBC 8.8 (3.8-10.6) k/uL RBC 4.93 (3.80-5.40) m/uL Hgb 14.5 (11.4-16.0) gm/dL Hct 42.0 (34.0-46.0) % MCV 85.3 (80.0-100.0) fL MCH 29.5 (25.0-35.0) pg MCHC 34.6 (31.0-37.0) g/dL RDW 12.2 (11.5-15.5) % Plt Count 293 (150-450) k/uL Neutrophils % 58 % Lymphocytes % 31 % Monocytes % 6 % Eosinophils % 3 % Basophils % 0 % Neutrophils # 5.1 (1.3-7.7) k/uL Lymphocytes # 2.7 (1.0-4.8) k/uL Monocytes # 0.5 (0-1.0) k/uL Eosinophils # 0.3 (0-0.7) k/uL Basophils # 0.0 (0-0.2) k/uL Sodium 140 (137-145) mmol/L Potassium 3.8 (3.5-5.1) mmol/L Chloride 107 (98-107) mmol/L Carbon Dioxide 22 (22-30) mmol/L Anion Gap 11 mmol/L BUN 6 L (7-17) mg/dL Creatinine 0.58 (0.52-1.04) mg/dL Est GFR (CKD-EPI)AfAm >90 (>60 ml/min/1.73 sqM) Est GFR (CKD-EPI)NonAf >90 (>60 ml/min/1.73 sqM) Glucose 101 H (74-99) mg/dL Plasma Lactic Acid [place] 1.3 (0.7-2.0) mmol/L Calcium 9.3 (8.4-10.2) mg/dL Total Bilirubin 1.2 (0.2-1.3) mg/dL AST 25 (14-36) U/L ALT 21 (4-34) U/L Alkaline Phosphatase 69 (38-126) U/L Total Protein 7.9 (6.3-8.2) g/dL Albumin 4.7 (3.5-5.0) g/dL Amylase 43 (30-110) U/L Lipase 32 (23-300) U/L Urine Color Urine Appearance (Clear) Urine pH (5.0-8.0) Ur Specific [place] (1.001-1.035) Urine Protein (Negative) Urine Glucose (UA) (Negative) Urine Ketones (Negative) Urine Blood (Negative) Urine Nitrite (Negative) Urine Bilirubin (Negative) Urine Urobilinogen (<2.0) mg/dL Ur Leukocyte Esterase (Negative) Urine RBC (0-5) /hpf Urine WBC (0-5) /hpf Ur Squamous Epith Cells (0-4) /hpf Urine Bacteria (None) /hpf Urine Mucus (None) /hpf 03/04/20 Range/Units 07:50 WBC (3.8-10.6) k/uL RBC (3.80-5.40) m/uL Hgb (11.4-16.0) gm/dL Hct (34.0-46.0) % MCV (80.0-100.0) fL MCH (25.0-35.0) pg MCHC (31.0-37.0) g/dL RDW (11.5-15.5) % Plt Count (150-450) k/uL Neutrophils % % Lymphocytes % % Monocytes % % Eosinophils % % Basophils % % Neutrophils # (1.3-7.7) k/uL Lymphocytes # (1.0-4.8) k/uL Monocytes # (0-1.0) k/uL Eosinophils # (0-0.7) k/uL Basophils # (0-0.2) k/uL Sodium (137-145) mmol/L Potassium (3.5-5.1) mmol/L Chloride (98-107) mmol/L Carbon Dioxide (22-30) mmol/L Anion Gap mmol/L BUN (7-17) mg/dL Creatinine (0.52-1.04) mg/dL Est GFR (CKD-EPI)AfAm (>60 ml/min/1.73 sqM) Est GFR (CKD-EPI)NonAf (>60 ml/min/1.73 sqM) Glucose (74-99) mg/dL Plasma Lactic Acid [place] (0.7-2.0) mmol/L Calcium (8.4-10.2) mg/dL Total Bilirubin (0.2-1.3) mg/dL AST (14-36) U/L ALT (4-34) U/L Alkaline Phosphatase (38-126) U/L Total Protein (6.3-8.2) g/dL Albumin (3.5-5.0) g/dL Amylase (30-110) U/L Lipase (23-300) U/L Urine Color Yellow Urine Appearance Clear (Clear) Urine pH 7.0 (5.0-8.0) Ur Specific [place] 1.006 (1.001-1.035) Urine Protein Trace H (Negative) Urine Glucose (UA) Negative (Negative) Urine Ketones 1+ H (Negative) Urine Blood Large H (Negative) Urine Nitrite Negative (Negative) Urine Bilirubin Negative (Negative) Urine Urobilinogen <2.0 (<2.0) mg/dL Ur Leukocyte Esterase Small H (Negative) Urine RBC >182 H (0-5) /hpf Urine WBC 12 H (0-5) /hpf Ur Squamous Epith Cells <1 (0-4) /hpf Urine Bacteria Rare H (None) /hpf Urine Mucus Rare H (None) /hpf Disposition Clinical Impression: Enteritis, Nausea & vomiting Disposition: HOME SELF-CARE Condition: Stable Instructions (If sedation given, give patient instructions): Acute Nausea and Vomiting (ED) Additional Instructions: Please return to the Emergency Department if symptoms worsen or any other concerns. Prescriptions: Famotidine [Pepcid] 20 mg PO BID #28 tablet Ondansetron Odt [Zofran Odt] 4 mg PO Q8HR PRN #10 tab PRN Reason: Nausea Is patient prescribed a controlled substance at d/c from ED?: No Referrals: None,Stated [Primary Care Provider] - 1-2 days Time of Disposition: 08:36
[2020-03-04 07:12] LABS: Basophils % (A) 0 %; Eosinophils # (A) 0.3 k/uL (0-0.7); Eosinophils % (A) 3 %; HGB 14.5 gm/dL (11.4-16.0); Lymphocytes # (A) 2.7 k/uL (1.0-4.8); Lymphocytes % (A) 31 %; MCH 29.5 pg (25.0-35.0); MCHC 34.6 g/dL (31.0-37.0); MCV 85.3 fL (80.0-100.0); Mean Platelet Volume 7.7; Monocytes # (A) 0.5 k/uL (0-1.0); Monocytes % (A) 6 %; Neutrophils # (A) 5.1 k/uL (1.3-7.7); Neutrophils % (A) 58 %; Platelet Count 293 k/uL (150-450); RBC 4.93 m/uL (3.80-5.40); RDW 12.2 % (11.5-15.5); WBC 8.8 k/uL (3.8-10.6)
[2020-03-04 07:24] LABS: ALT 21 U/L (4-34); AST 25 U/L (14-36); African American GFR (CKD) >90 (>60 ml/min/1.73 sqM); Albumin 4.7 g/dL (3.5-5.0); Alkaline Phosphatase 69 U/L (38-126); Amylase 43 U/L (30-110); Anion Gap 11 mmol/L; Blood Urea Nitrogen 6 mg/dL (7-17); Calcium 9.3 mg/dL (8.4-10.2); Carbon Dioxide 22 mmol/L (22-30); Chloride 107 mmol/L (98-107); Glucose 101 mg/dL (74-99); Non-African American GFR(CKD) >90 (>60 ml/min/1.73 sqM); Potassium 3.8 mmol/L (3.5-5.1); Sodium 140 mmol/L (137-145); Total Bilirubin 1.2 mg/dL (0.2-1.3); Total Protein 7.9 g/dL (6.3-8.2)
[2020-03-04] MEDS ORDERED: LORazepam 2 MG/ML INJ IV STA (07:24)
[2020-03-04 08:10] LABS: Appearance,Urine Clear (Clear); Bacteria,Urine Rare /hpf; Bilirubin,Urine Negative (Negative); Blood,Urine Large (Negative); Color,Urine Yellow; Glucose,Urine (UA) Negative (Negative); Ketones,Urine 1+ (Negative); Leukocyte Esterase,Urine Small (Negative); Mucus,Urine Rare /hpf; Nitrite,Urine Negative (Negative); Protein,Urine Trace (Negative); RBC,Urine >182 /hpf (0-5); Specific Gravity,Urine 1.006 (1.001-1.035); Squamous Epithelial Cell,Urine <1 /hpf (0-4); Urobilinogen,Urine <2.0 mg/dL (<2.0); WBC,Urine 12 /hpf (0-5)
[2020-03-04] MEDS ORDERED: ONDANSETRON 4 MG ODT STARTER PACK 2 TAB BTL PO STA (08:35)
[2020-03-04 08:58] VITALS: BP 116/64; PULSE 71
== END 2020-03-04 09:11 | disposition home or self-care (01) ==
LOC: EC 06:17
DX: K52.9 Noninfective gastroenteritis and colitis, unspecified (principal); F17.200 Nicotine dependence, unspecified, uncomplicated; Z88.0 Allergy status to penicillin; Z91.048 Other nonmedicinal substance allergy status; Z91.018 Allergy to other foods
CPT/HCPCS: 36415; 80053; 82150; 83605; 83690; 85025; 81001; 87086; 99284; 96361; 96374; 96375 ×4; J2060; J2270; J1200; J2405; S0119

== ENCOUNTER 2020-03-05 10:00 | Emergency (ER) | payer OTHER ==
[2020-03-05 10:04] VITALS: RESP 18; TEMP 98.1
[2020-03-05] MEDS ORDERED: LORazepam 2 MG/ML INJ IV STA (10:16)
[2020-03-05] MEDS ORDERED: SODIUM CHLORIDE 0.9% 2,000 ML IV STA (10:16)
[2020-03-05] MEDS ORDERED: ONDANSETRON 4 MG/2 ML VIAL IVP STA (10:16)
[2020-03-05 10:38] LABS: Basophils % (A) 1 %; Eosinophils # (A) 0.1 k/uL (0-0.7); Eosinophils % (A) 2 %; HCT 44.9 % (34.0-46.0); HGB 15.2 gm/dL (11.4-16.0); Lymphocytes # (A) 1.7 k/uL (1.0-4.8); Lymphocytes % (A) 21 %; MCH 29.3 pg (25.0-35.0); MCHC 33.8 g/dL (31.0-37.0); MCV 86.6 fL (80.0-100.0); Mean Platelet Volume 7.1; Monocytes # (A) 0.3 k/uL (0-1.0); Monocytes % (A) 4 %; Neutrophils # (A) 5.9 k/uL (1.3-7.7); Neutrophils % (A) 71 %; Platelet Count 295 k/uL (150-450); RBC 5.18 m/uL (3.80-5.40); WBC 8.2 k/uL (3.8-10.6)
[2020-03-05 10:47] LABS: ALT 24 U/L (4-34); African American GFR (CKD) >90 (>60 ml/min/1.73 sqM); Albumin 5.1 g/dL (3.5-5.0); Amylase 45 U/L (30-110); Anion Gap 13 mmol/L; Blood Urea Nitrogen 8 mg/dL (7-17); Calcium 9.6 mg/dL (8.4-10.2); Carbon Dioxide 20 mmol/L (22-30); Chloride 107 mmol/L (98-107); Glucose 91 mg/dL (74-99); Non-African American GFR(CKD) >90 (>60 ml/min/1.73 sqM); Sodium 140 mmol/L (137-145); Total Bilirubin 1.5 mg/dL (0.2-1.3); Total Protein 8.6 g/dL (6.3-8.2)
[2020-03-05] MEDS ORDERED: METOCLOPRAMIDE 5 MG/ML 2 ML VIAL IVP STA (10:50)
[2020-03-05] MEDS ORDERED: MAG HYDROX/AL HYDROX/SIMETH 30 ML, HYOSCYAMINE ELIXIR 10 ML, LIDOCAINE VISCOUS 2% 10 ML PO STA ×3 (10:50)
[2020-03-05] MEDS ORDERED: diphenhydrAMINE 50 MG/ML 1 ML VIAL IVP STA (10:50)
[2020-03-05 10:55] LABS: Potassium 4.1 mmol/L (3.5-5.1)
[2020-03-05 10:56] LABS: AST 33 U/L (14-36); Alkaline Phosphatase 74 U/L (38-126)
--- NOTE | 2020-03-05 10:56 | ED ---
General Adult HPI - General Chief complaint: Nausea/Vomiting/Diarrhea Stated complaint: abd pain/vomiting-revisit Time Seen by Provider: 03/05/20 10:15 Source: patient, RN notes reviewed Mode of arrival: ambulatory Limitations: no limitations - History of Present Illness Initial comments: This a 24-year-old female presents emergency Department chief complaint of epigastric discomfort. Patient was seen in the emergency department 2 times prior to this. Patient states that she did not vomit aggressively yesterday states that she woke up this morning felt nauseated and which she took a Zofran states it did not taste also she drank water causing her to vomit. Patient states that she's been dry heaving ever since. Patient states that she has pain just below her rib cage. Patient denies any chest pain or shortness breath no fevers or chills. No sick contacts. Patient CT was reviewed from prior ER visit which showed evidence of jejunitis. Patient had no prior abdominal surgeries denies any chance . - Related Data Previous Rx's Medication Instructions Recorded Azithromycin [Zithromax Z-pack] 250 mg PO DIRECTED #6 tab 01/04/19 Ibuprofen [Motrin] 600 mg PO Q6HR PRN #20 tab 01/04/19 Azithromycin [Zithromax Z-pack] 250 mg PO DIRECTED #6 tab 01/05/19 predniSONE 50 mg PO DAILY #5 tablet 01/05/19 Famotidine [Pepcid] 20 mg PO DAILY #14 tablet 03/02/20 Ondansetron [Zofran] 4 mg PO Q8HR PRN #12 tab 03/02/20 Famotidine [Pepcid] 20 mg PO BID #28 tablet 03/04/20 Ondansetron Odt [Zofran Odt] 4 mg PO Q8HR PRN #10 tab 03/04/20 Allergies Allergy/AdvReac Type Severity Reaction Status Date / Time Penicillins Allergy Rash/Hives Verified 03/05/20 10:02 venom-wasp Allergy Anaphylaxis Verified 03/05/20 10:02 SOUR CREAM Allergy Swelling Uncoded 03/04/20 06:29 Review of Systems ROS Statement: Those systems with pertinent positive or pertinent negative responses have been documented in the HPI. ROS Other: All systems not noted in ROS Statement are negative. Past Medical History Past Medical History: Asthma History of Any Multi-Drug Resistant Organisms: None Reported Past Surgical History: No Surgical Hx Reported Past Psychological History: Anxiety, Depression Smoking Status: Former smoker Past Alcohol Use History: None Reported Past Drug Use History: Marijuana General Exam Limitations: no limitations General appearance: alert, in no apparent distress, anxious Head exam: Present: atraumatic, normocephalic, normal inspection Eye exam: Present: normal appearance, PERRL, EOMI. Absent: scleral icterus, conjunctival injection, periorbital swelling ENT exam: Present: normal exam, normal oropharynx, mucous membranes moist Neck exam: Present: normal inspection, full ROM. Absent: tenderness, menin gismus, lymphadenopathy Respiratory exam: Present: normal lung sounds bilaterally. Absent: respiratory distress, wheezes, rales, rhonchi, stridor Cardiovascular Exam: Present: regular rate, normal rhythm, normal heart sounds. Absent: systolic murmur, diastolic murmur, rubs, gallop, clicks GI/Abdominal exam: Present: soft, tenderness (Moderate epigastric tenderness), normal bowel sounds. Absent: distended, guarding, rebound, rigid Neurological exam: Present: alert, oriented X3, CN II-XII intact. Absent: motor sensory deficit Psychiatric exam: Present: anxious Course Vital Signs 03/05/20 10:02 Temperature 98.1 F Pulse Rate 82 Respiratory 18 Rate Blood Pressure 127/70 O2 Sat by Pulse 97 Oximetry Medical Decision Making - Medical Decision Making 24-year-old presented for recheck for nausea vomiting. Patient states that she's been vomiting after she drank much water because she did not like the flavor her Zofran. Patient has had no recurrent emesis in the emergency department. Patient was provided GI cocktail which alleviated some her sy mptoms. Patient offered admission but states that she wants to go home because it is her first Mother's Day. Patient will be discharged in stable condition she has Zofran at home. I offered suppositories but patient declines. - Lab Data Result diagrams: 03/05/20 10:24 03/05/20 10:24 Lab Results 03/05/20 03/05/20 Range/Units 10:24 10:24 WBC 8.2 (3.8-10.6) k/uL RBC 5.18 (3.80-5.40) m/uL Hgb 15.2 (11.4-16.0) gm/dL Hct 44.9 (34.0-46.0) % MCV 86.6 (80.0-100.0) fL MCH 29.3 (25.0-35.0) pg MCHC 33.8 (31.0-37.0) g/dL RDW 12.0 (11.5-15.5) % Plt Count 295 (150-450) k/uL Neutrophils % 71 % Lymphocytes % 21 % Monocytes % 4 % Eosinophils % 2 % Basophils % 1 % Neutrophils # 5.9 (1.3-7.7) k/uL Lymphocytes # 1.7 (1.0-4.8) k/uL Monocytes # 0.3 (0-1.0) k/uL Eosinophils # 0.1 (0-0.7) k/uL Basophils # 0.0 (0-0.2) k/uL Sodium 140 (137-145) mmol/L Potassium 4.1 (3.5-5.1) mmol/L Chloride 107 (98-107) mmol/L Carbon Dioxide 20 L (22-30) mmol/L Anion Gap 13 mmol/L BUN 8 (7-17) mg/dL Creatinine 0.58 (0.52-1.04) mg/dL Est GFR (CKD-EPI)AfAm >90 (>60 ml/min/1.73 sqM) Est GFR (CKD-EPI)NonAf >90 (>60 ml/min/1.73 sqM) Glucose 91 (74-99) mg/dL Calcium 9.6 (8.4-10.2) mg/dL Total Bilirubin 1.5 H (0.2-1.3) mg/dL AST 33 (14-36) U/L ALT 24 (4-34) U/L Alkaline Phosphatase 74 (38-126) U/L Total Protein 8.6 H (6.3-8.2) g/dL Albumin 5.1 H (3.5-5.0) g/dL Amylase 45 (30-110) U/L Lipase 24 (23-300) U/L Disposition Clinical Impression: Nausea & vomiting Disposition: HOME SELF-CARE Condition: Stable Instructions (If sedation given, give patient instructions): Acute Nausea and Vomiting (ED) Additional Instructions: Please return to the Emergency Department if symptoms worsen or any other concerns. Is patient prescribed a controlled substance at d/c from ED?: No Referrals: None,Stated [Primary Care Provider] - 1-2 days Cameron Saenz MD [STAFF PHYSICIAN] - 1-2 days Time of Disposition: 12:37
[2020-03-05 12:51] VITALS: PULSE 88
[2020-03-05 12:52] VITALS: BP 136/86
== END 2020-03-05 12:56 | disposition home or self-care (01) ==
LOC: EC 10:00
DX: R11.2 Nausea with vomiting, unspecified (principal); R19.7 Diarrhea, unspecified; R10.9 Unspecified abdominal pain; Z87.891 Personal history of nicotine dependence; Z88.0 Allergy status to penicillin; Z91.038 Other insect allergy status; Z91.018 Allergy to other foods; Z53.29 Procedure and treatment not carried out because of patient's decision for other reasons
CPT/HCPCS: 36415; 80053; 82150; 83690; 85025; 99284; 96374; 96375 ×3; 96361 ×2; J2060; J1200; J2765; J2405

== ENCOUNTER 2020-03-06 07:30 | Emergency (ER) | payer OTHER ==
[2020-03-06 07:34] VITALS: TEMP 97.9
[2020-03-06] MEDS ORDERED: PROMETHAZINE INJ 25 MG/ML 1 ML VIAL IM STA (07:45)
[2020-03-06] MEDS ORDERED: diphenhydrAMINE 50 MG/ML 1 ML VIAL IM STA (07:45)
--- NOTE | 2020-03-06 07:49 | ED ---
General Adult HPI - General Chief complaint: Abdominal Pain Stated complaint: Abd pain and NV Time Seen by Provider: 03/06/20 07:30 Source: patient, RN notes reviewed, old records reviewed Mode of arrival: ambulatory Limitations: no limitations - History of Present Illness Initial comments: This is a 24-year-old female presents emergency Department for nausea and vomiting after she takes her medication. Patient states she's been here multiple times for nausea vomiting but she goes home wakes up and she still nauseous and then she takes her medicine and she states that the medicine in particular the dissolving Zofran makes her nauseated more and then she vomits. Patient states she does smoke marijuana and did smoke last night. Patient states her abdomen hurts everywhere. Patient denies any dysuria hematuria urinary frequency. Patient denies any fever chills. Patient denies any back pain. - Related Data Previous Rx's Medication Instructions Recorded Azithromycin [Zithromax Z-pack] 250 mg PO DIRECTED #6 tab 01/04/19 Ibuprofen [Motrin] 600 mg PO Q6HR PRN #20 tab 01/04/19 Azithromycin [Zithromax Z-pack] 250 mg PO DIRECTED #6 tab 01/05/19 predniSONE 50 mg PO DAILY #5 tablet 01/05/19 Famotidine [Pepcid] 20 mg PO DAILY #14 tablet 03/02/20 Ondansetron [Zofran] 4 mg PO Q8HR PRN #12 tab 03/02/20 Famotidine [Pepcid] 20 mg PO BID #28 tablet 03/04/20 Ondansetron Odt [Zofran Odt] 4 mg PO Q8HR PRN #10 tab 03/04/20 Promethazine Suppository 25 mg RECTAL TID #5 supp 03/06/20 [Phenergan] Allergies Allergy/AdvReac Type Severity Reaction Status Date / Time Penicillins Allergy Rash/Hives Verified 03/05/20 10:02 venom-wasp Allergy Anaphylaxis Verified 03/05/20 10:02 SOUR CREAM Allergy Swelling Uncoded 03/04/20 06:29 Review of Systems ROS Statement: Those systems with pertinent positive or pertinent negative responses have been documented in the HPI. ROS Other: All systems not noted in ROS Statement are negative. Past Medical History Past Medical History: Asthma History of Any Multi-Drug Resistant Organisms: None Reported Past Surgical History: No Surgical Hx Reported Past Psychological History: Anxiety, Depression Smoking Status: Former smoker Past Alcohol Use History: None Reported Past Drug Use History: Marijuana General Exam - General Exam Comments Initial Comments: GENERAL: Patient is well-developed and well-nourished. Patient is nontoxic and well- hydrated and is in mild distress. ENT: Neck is soft and supple. No significant lymphadenopathy is noted. Oropharynx is clear. Moist mucous membranes. Neck has full range of motion without eliciting any pain. EYES: The sclera were anicteric and conjunctiva were pink and moist. Extraocular movements were intact and pupils were equal round and reactive to light. Eyelids were unremarkable. PULMONARY: Unlabored respirations. Good breath sounds bilaterally. No audible rales rhonchi or wheezing was noted. CARDIOVASCULAR: There is a regular rate and rhythm without any murmurs gallops or rubs. ABDOMEN: Soft and nontender with normal bowel sounds. SKIN: Skin is clear with no lesions or rashes and otherwise unremarkable. NEUROLOGIC: Patient is alert and oriented x3. Cranial nerves II through XII are grossly intact. Motor and sensory are also intact. Normal speech, volume and content. Symmetrical smile. MUSCULOSKELETAL: Normal extremities with adequate strength and full range of motion. PSYCHIATRIC: Normal psychiatric evaluation. Limitations: no limitations Course Vital Signs 03/06/20 07:32 Temperature 97.9 F Pulse Rate 113 H Respiratory 18 Rate Blood Pressure 123/70 O2 Sat by Pulse 99 Oximetry Medical Decision Making - Medical Decision Making Patient has not had any vomiting while in the emergency department she was sleeping when I went back in the room. Patient refused to take a suppository. I did order her 1 as an outpatient in case she got to the point where she decided she needed. I gave the patient a primary medical care doctor to follow up with. Disposition Clinical Impression: Acute vomiting Disposition: HOME SELF-CARE Instructions (If sedation given, give patient instructions): Acute Nausea and Vomiting (ED) Prescriptions: Promethazine Suppository [Phenergan] 25 mg RECTAL TID #5 supp Is patient prescribed a controlled substance at d/c from ED?: No Referrals: Lana Mckeon MD [Medical Doctor] - 1-2 days Time of Disposition: 08:44
[2020-03-06 08:45] VITALS: BP 124/87; PULSE 84; RESP 16
== END 2020-03-06 09:04 | disposition home or self-care (01) ==
LOC: EC 07:30
DX: R11.2 Nausea with vomiting, unspecified (principal); F12.90 Cannabis use, unspecified, uncomplicated; Z88.0 Allergy status to penicillin; Z91.038 Other insect allergy status; Z91.018 Allergy to other foods; Z87.891 Personal history of nicotine dependence
CPT/HCPCS: 96372 ×2; 99284; J1200; J2550

== ENCOUNTER 2020-03-07 07:35 | Emergency (ER) | payer OTHER ==
[2020-03-07 07:43] VITALS: TEMP 97.9
[2020-03-07] MEDS ORDERED: SODIUM CHLORIDE 0.9% 1,000 ML IV STA ×2 (07:55)
[2020-03-07] MEDS ORDERED: METOCLOPRAMIDE 5 MG/ML 2 ML VIAL IVP STA (07:55)
[2020-03-07] MEDS ORDERED: diphenhydrAMINE 50 MG/ML 1 ML VIAL IVP STA (07:55)
--- NOTE | 2020-03-07 07:59 | ED ---
Abdominal Pain HPI - General Chief Complaint: Abdominal Pain Stated Complaint: vomiting-revisit Time Seen by Provider: 03/07/20 07:46 Source: patient, RN notes reviewed, old records reviewed Mode of arrival: ambulatory Limitations: no limitations - History of Present Illness Initial Comments: This Patient is a 24-year-old female who presents for his prostate chief complaint of epigastric abdominal pain nausea vomiting. Patient's symptoms have been progressive for the past week. This is her fifth visit to the emergency department for similar complaints. Each evaluation she's had no labs changes. Patient arrives she is hysterical, crying and screaming. Patient states that she states that she is not able to eat area did Patient reports that she has no other changes in her symptoms including changes in stools or urination. - Related Data Previous Rx's Medication Instructions Recorded Azithromycin [Zithromax Z-pack] 250 mg PO DIRECTED #6 tab 01/04/19 Ibuprofen [Motrin] 600 mg PO Q6HR PRN #20 tab 01/04/19 Azithromycin [Zithromax Z-pack] 250 mg PO DIRECTED #6 tab 01/05/19 predniSONE 50 mg PO DAILY #5 tablet 01/05/19 Famotidine [Pepcid] 20 mg PO DAILY #14 tablet 03/02/20 Ondansetron [Zofran] 4 mg PO Q8HR PRN #12 tab 03/02/20 Famotidine [Pepcid] 20 mg PO BID #28 tablet 03/04/20 Ondansetron Odt [Zofran Odt] 4 mg PO Q8HR PRN #10 tab 03/04/20 Promethazine Suppository 25 mg RECTAL TID #5 supp 03/06/20 [Phenergan] Nitrofurantoin Monohyd/M-Cryst 100 mg PO Q12HR #14 cap 03/07/20 [Macrobid] Ondansetron [Zofran ODT] 4 mg PO Q8HR #12 tab 03/07/20 Allergies Allergy/AdvReac Type Severity Reaction Status Date / Time Penicillins Allergy Rash/Hives Verified 03/07/20 07:43 venom-wasp Allergy Anaphylaxis Verified 03/07/20 07:43 SOUR CREAM Allergy Swelling Uncoded 03/07/20 07:43 Review of Systems ROS Statement: Those systems with pertinent positive or pertinent negative responses have been documented in the HPI. ROS Other: All systems not noted in ROS Statement are negative. Past Medical History Past Medical History: Asthma History of Any Multi-Drug Resistant Organisms: None Reported Past Surgical History: No Surgical Hx Reported Past Psychological History: Anxiety, Depression Smoking Status: Former smoker Past Alcohol Use History: None Reported Past Drug Use History: Marijuana General Exam - General Exam Comments Initial Comments: 24-year-old female presents emergency room today quite hysterical. Alert and oriented, dry heaving Limitations: no limitations General appearance: alert, in no apparent distress Head exam: Present: atraumatic, normocephalic, normal inspection Eye exam: Present: normal appearance, PERRL, EOMI. Absent: scleral icterus, conjunctival injection, periorbital swelling ENT exam: Present: normal exam, mucous membranes moist Neck exam: Present: normal inspection. Absent: tenderness, meningismus, lymphadenopathy Respiratory exam: Present: normal lung sounds bilaterally. Absent: respiratory distress, wheezes, rales, rhonchi, stridor Cardiovascular Exam: Present: regular rate, normal rhythm, normal heart sounds. Absent: systolic murmur, diastolic murmur, rubs, gallop, clicks GI/Abdominal exam: Present: soft, normal bowel sounds. Absent: distended, tenderness, guarding, rebound, rigid Back exam: Present: normal inspection Neurological exam: Present: alert, oriented X3, CN II-XII intact Psychiatric exam: Present: normal affect, normal mood Skin exam: Present: warm, dry, intact, normal color. Absent: rash Course Vital Signs 03/07/20 03/07/20 03/07/20 07:42 09:06 12:44 Temperature 97.9 F Pulse Rate 120 H 86 88 Respiratory 18 16 16 Rate Blood Pressure 166/82 123/76 132/76 O2 Sat by Pulse 98 99 99 Oximetry - Reevaluation(s) Reevaluation #1: 03/07/20 10:53 Is evaluated resting comfortably in bed. He states that after Reglan and Benadryl. Patient's gas pain. Discussed patient's labwork was reviewed and otherwise unremarkable except for a urinary tract infection. I discussed the Patient should follow up with her primary care doctor but would like to have the Patient evaluated by EPS. She is agreeable to this. She does agree that she's anxious and does use marijuana to help cope with her anxiety. I discussed that her symptoms also seem to be related to see if having syndrome from marijuana us e. Medical Decision Making - Medical Decision Making 24 year old female presents to ED with vomiting and abdominal pain, and arrives crying and screaming and hysterical. Patient has been to ED 5 times this week. At this time she is hysterical and discussed patient needs to see psychiatry. Patient had normal labs today besides UA showing minor UTI. She had no further vomiting in ED after reglan and benadryl. Urine drug screen is positive for m arijuana and discussed symptoms could be related to cylic vomiting syndrome and marijuana induced. She was evalted by EPS and determined stable for outpatient treatment with [facility]. Return parameters discussed. - Lab Data Result diagrams: 03/07/20 08:42 03/07/20 08:42 Lab Results 03/07/20 03/07/20 03/07/20 Range/Units 08:42 08:42 08:51 WBC 10.6 (3.8-10.6) k/uL RBC 5.43 H (3.80-5.40) m/uL Hgb 15.8 (11.4-16.0) gm/dL Hct 46.8 H (34.0-46.0) % MCV 86.3 (80.0-100.0) fL MCH 29.1 (25.0-35.0) pg MCHC 33.7 (31.0-37.0) g/dL RDW 12.2 (11.5-15.5) % Plt Count 311 (150-450) k/uL Neutrophils % 81 % Lymphocytes % 13 % Monocytes % 4 % Eosinophils % 1 % Basophils % 0 % Neutrophils # 8.6 H (1.3-7.7) k/uL Lymphocytes # 1.3 (1.0-4.8) k/uL Monocytes # 0.4 (0-1.0) k/uL Eosinophils # 0.1 (0-0.7) k/uL Basophils # 0.1 (0-0.2) k/uL Sodium 140 (137-145) mmol/L Potassium 4.2 (3.5-5.1) mmol/L Chloride 104 (98-107) mmol/L Carbon Dioxide 17 L (22-30) mmol/L Anion Gap 19 mmol/L BUN 14 (7-17) mg/dL Creatinine 0.64 (0.52-1.04) mg/dL Est GFR (CKD-EPI)AfAm >90 (>60 ml/min/1.73 sqM) Est GFR (CKD-EPI)NonAf >90 (>60 ml/min/1.73 sqM) Glucose 78 (74-99) mg/dL Calcium 10.1 (8.4-10.2) mg/dL Total Bilirubin 1.7 H (0.2-1.3) mg/dL AST 39 H (14-36) U/L ALT 25 (4-34) U/L Alkaline Phosphatase 81 (38-126) U/L Total Protein 9.0 H (6.3-8.2) g/dL Albumin 5.4 H (3.5-5.0) g/dL Amylase 41 (30-110) U/L Lipase 25 (23-300) U/L Urine Color Yellow Urine Appearance Cloudy H (Clear) Urine pH 5.5 (5.0-8.0) Ur Specific [place] 1.030 (1.001-1.035) Urine Protein 1+ H (Negative) Urine Glucose (UA) Negative (Negative) Urine Ketones 4+ H (Negative) Urine Blood Moderate H (Negative) Urine Nitrite Negative (Negative) Urine Bilirubin Negative (Negative) Urine Urobilinogen 2.0 (<2.0) mg/dL Ur Leukocyte Esterase Large H (Negative) Urine RBC 10 H (0-5) /hpf Urine WBC 31 H (0-5) /hpf Ur Squamous Epith Cells 9 H (0-4) /hpf Amorphous Sediment Rare H (None) /hpf Urine Bacteria Occasional H (None) /hpf Urine Mucus Moderate H (None) /hpf Urine HCG, Qual (Not Detectd) Urine Opiates Screen Not Detected (NotDetected) Ur Oxycodone Screen Not Detected (NotDetected) Urine Methadone Screen Not Detected (NotDetected) Ur Propoxyphene Screen Not Detected (NotDetected) Ur Barbiturates Screen Not Detected (NotDetected) U Tricyclic Antidepress Not Detected (NotDetected) Ur Phencyclidine Scrn Not Detected (NotDetected) Ur Amphetamines Screen Not Detected (NotDetected) U Methamphetamines Scrn Not Detected (NotDetected) U Benzodiazepines Scrn Detected H (NotDetected) Urine Cocaine Screen Not Detected (NotDetected) U Marijuana (THC) Screen Detected H (NotDetected) Serum Alcohol <10 mg/dL 03/07/20 Range/Units 08:51 WBC (3.8-10.6) k/uL RBC (3.80-5.40) m/uL Hgb (11.4-16.0) gm/dL Hct (34.0-46.0) % MCV (80.0-100.0) fL MCH (25.0-35.0) pg MCHC (31.0-37.0) g/dL RDW (11.5-15.5) % Plt Count (150-450) k/uL Neutrophils % % Lymphocytes % % Monocytes % % Eosinophils % % Basophils % % Neutrophils # (1.3-7.7) k/uL Lymphocytes # (1.0-4.8) k/uL Monocytes # (0-1.0) k/uL Eosinophils # (0-0.7) k/uL Basophils # (0-0.2) k/uL Sodium (137-145) mmol/L Potassium (3.5-5.1) mmol/L Chloride (98-107) mmol/L Carbon Dioxide (22-30) mmol/L Anion Gap mmol/L BUN (7-17) mg/dL Creatinine (0.52-1.04) mg/dL Est GFR (CKD-EPI)AfAm (>60 ml/min/1.73 sqM) Est GFR (CKD-EPI)NonAf (>60 ml/min/1.73 sqM) Glucose (74-99) mg/dL Calcium (8.4-10.2) mg/dL Total Bilirubin (0.2-1.3) mg/dL AST (14-36) U/L ALT (4-34) U/L Alkaline Phosphatase (38-126) U/L Total Protein (6.3-8.2) g/dL Albumin (3.5-5.0) g/dL Amylase (30-110) U/L Lipase (23-300) U/L Urine Color Urine Appearance (Clear) Urine pH (5.0-8.0) Ur Specific [place] (1.001-1.035) Urine Protein (Negative) Urine Glucose (UA) (Negative) Urine Ketones (Negative) Urine Blood (Negative) Urine Nitrite (Negative) Urine Bilirubin (Negative) Urine Urobilinogen (<2.0) mg/dL Ur Leukocyte Esterase (Negative) Urine RBC (0-5) /hpf Urine WBC (0-5) /hpf Ur Squamous Epith Cells (0-4) /hpf Amorphous Sediment (None) /hpf Urine Bacteria (None) /hpf Urine Mucus (None) /hpf Urine HCG, Qual Not Detected (Not Detectd) Urine Opiates Screen (NotDetected) Ur Oxycodone Screen (NotDetected) Urine Methadone Screen (NotDetected) Ur Propoxyphene Screen (NotDetected) Ur Barbiturates Screen (NotDetected) U Tricyclic Antidepress (NotDetected) Ur Phencyclidine Scrn (NotDetected) Ur Amphetamines Screen (NotDetected) U Methamphetamines Scrn (NotDetected) U Benzodiazepines Scrn (NotDetected) Urine Cocaine Screen (NotDetected) U Marijuana (THC) Screen (NotDetected) Serum Alcohol mg/dL Disposition Clinical Impression: UTI (urinary tract infection), Nausea & vomiting, Marijuana use Disposition: HOME SELF-CARE Condition: Good Instructions (If sedation given, give patient instructions): Cyclic Vomiting Syndrome (ED) Additional Instructions: Patient is to stop smoking marijuana. This contributes nausea and vomiting with cyclic vomiting syndrome. . Take the medications as prescribed. Return to the ED if any alarming signs or symptoms occur. Prescriptions: Nitrofurantoin Monohyd/M-Cryst [Macrobid] 100 mg PO Q12HR #14 cap Ondansetron [Zofran ODT] 4 mg PO Q8HR #12 tab Is patient prescribed a controlled substance at d/c from ED?: No Referrals: None,Stated [Primary Care Provider] - 1-2 days Time of Disposition: 11:53
[2020-03-07 08:54] LABS: Basophils # (A) 0.1 k/uL (0-0.2); Basophils % (A) 0 %; Eosinophils # (A) 0.1 k/uL (0-0.7); Eosinophils % (A) 1 %; HCT 46.8 % (34.0-46.0); HGB 15.8 gm/dL (11.4-16.0); Lymphocytes # (A) 1.3 k/uL (1.0-4.8); Lymphocytes % (A) 13 %; MCH 29.1 pg (25.0-35.0); MCHC 33.7 g/dL (31.0-37.0); MCV 86.3 fL (80.0-100.0); Mean Platelet Volume 7.6; Monocytes # (A) 0.4 k/uL (0-1.0); Monocytes % (A) 4 %; Neutrophils # (A) 8.6 k/uL (1.3-7.7); Neutrophils % (A) 81 %; Platelet Count 311 k/uL (150-450); RBC 5.43 m/uL (3.80-5.40); RDW 12.2 % (11.5-15.5); WBC 10.6 k/uL (3.8-10.6)
[2020-03-07 09:02] LABS: ALT 25 U/L (4-34); AST 39 U/L (14-36); African American GFR (CKD) >90 (>60 ml/min/1.73 sqM); Albumin 5.4 g/dL (3.5-5.0); Alcohol <10 mg/dL; Alkaline Phosphatase 81 U/L (38-126); Amylase 41 U/L (30-110); Anion Gap 19 mmol/L; Blood Urea Nitrogen 14 mg/dL (7-17); Calcium 10.1 mg/dL (8.4-10.2); Carbon Dioxide 17 mmol/L (22-30); Chloride 104 mmol/L (98-107); Glucose 78 mg/dL (74-99); Non-African American GFR(CKD) >90 (>60 ml/min/1.73 sqM); Potassium 4.2 mmol/L (3.5-5.1); Sodium 140 mmol/L (137-145); Total Bilirubin 1.7 mg/dL (0.2-1.3)
[2020-03-07] MEDS ORDERED: PROMETHAZINE INJ 25 MG/ML 1 ML VIAL IM STA (09:02)
[2020-03-07 09:07] VITALS: RESP 16
[2020-03-07 09:10] LABS: Amorphous Sediment,Urine Rare /hpf; Appearance,Urine Cloudy (Clear); Bacteria,Urine Occasional /hpf; Bilirubin,Urine Negative (Negative); Blood,Urine Moderate (Negative); Color,Urine Yellow; Glucose,Urine (UA) Negative (Negative); Ketones,Urine 4+ (Negative); Leukocyte Esterase,Urine Large (Negative); Mucus,Urine Moderate /hpf; Nitrite,Urine Negative (Negative); PH, Urine 5.5 (5.0-8.0); Protein,Urine 1+ (Negative); RBC,Urine 10 /hpf (0-5); Squamous Epithelial Cell,Urine 9 /hpf (0-4); WBC,Urine 31 /hpf (0-5)
[2020-03-07 09:13] LABS: Amphetamine Screen,Urine Not Detected (NotDetected); Barbiturate Screen,Urine Not Detected (NotDetected); Benzodiazepines Screen,Urine Detected (NotDetected); Cocaine Screen,Urine Not Detected (NotDetected); Methadone Screen, Urine Not Detected (NotDetected); Opiate Screen,Urine Not Detected (NotDetected); Oxycodone Screen, Urine Not Detected (NotDetected); Phencyclidine Screen,Urine Not Detected (NotDetected); Tricyclic Antidepressant,Urine Not Detected (NotDetected); Urn Cannabinoid Scrn Detected (NotDetected)
[2020-03-07 12:45] VITALS: BP 132/76; PULSE 88
== END 2020-03-07 12:43 | disposition home or self-care (01) ==
LOC: EC 07:35
DX: N39.0 Urinary tract infection, site not specified (principal); F12.90 Cannabis use, unspecified, uncomplicated; Z88.0 Allergy status to penicillin; Z91.030 Bee allergy status; Z91.018 Allergy to other foods; Z87.891 Personal history of nicotine dependence
CPT/HCPCS: 80053; 82150; 83690; 85025; 81001; 81025; 80306; 80320; 87086; 99284; 96374; 96375; 96361; J1200; J2765; 36415

== ENCOUNTER 2020-03-14 09:40 | Emergency (ER) | payer OTHER ==
[2020-03-14] MEDS ORDERED: SODIUM CHLORIDE 0.9% 1,000 ML IV STA (09:58)
[2020-03-14] MEDS ORDERED: ONDANSETRON 4 MG/2 ML VIAL IVP STA (09:58)
[2020-03-14] MEDS ORDERED: PANTOPRAZOLE 40 MG/10 ML VIAL IVP STA (09:58)
[2020-03-14] MEDS ORDERED: KETOROLAC 30 MG/ML 1 ML VIAL IVP STA (09:58)
--- NOTE | 2020-03-14 10:09 | ED ---
Abdominal Pain HPI - General Chief Complaint: Abdominal Pain Stated Complaint: Abd Pain Time Seen by Provider: 03/14/20 09:48 Source: patient, RN notes reviewed, old records reviewed Mode of arrival: ambulatory Limitations: no limitations - History of Present Illness Initial Comments: This dictation is a 24-year-old female well-known to emergency department for the past 2 weeks with nausea and vomiting epigastric abdominal pain. She was last seen approximately week ago discharged on oral antibiotics nausea medicine and reports she's completed this course. She subsequently epigastric abdominal pain. Patient states that she's not been able to follow-up with GI specialty. - Related Data Previous Rx's Medication Instructions Recorded Azithromycin [Zithromax Z-pack] 250 mg PO DIRECTED #6 tab 01/04/19 Ibuprofen [Motrin] 600 mg PO Q6HR PRN #20 tab 01/04/19 Azithromycin [Zithromax Z-pack] 250 mg PO DIRECTED #6 tab 01/05/19 predniSONE 50 mg PO DAILY #5 tablet 01/05/19 Famotidine [Pepcid] 20 mg PO DAILY #14 tablet 03/02/20 Ondansetron [Zofran] 4 mg PO Q8HR PRN #12 tab 03/02/20 Famotidine [Pepcid] 20 mg PO BID #28 tablet 03/04/20 Ondansetron Odt [Zofran Odt] 4 mg PO Q8HR PRN #10 tab 03/04/20 Promethazine Suppository 25 mg RECTAL TID #5 supp 03/06/20 [Phenergan] Nitrofurantoin Monohyd/M-Cryst 100 mg PO Q12HR #14 cap 03/07/20 [Macrobid] Ondansetron [Zofran ODT] 4 mg PO Q8HR #12 tab 03/07/20 Famotidine [Pepcid AC] 10 mg PO DAILY #20 tablet 03/14/20 Allergies Allergy/AdvReac Type Severity Reaction Status Date / Time Penicillins Allergy Rash/Hives Verified 03/07/20 07:43 venom-wasp Allergy Anaphylaxis Verified 03/07/20 07:43 SOUR CREAM Allergy Swelling Uncoded 03/07/20 07:43 Review of Systems ROS Statement: Those systems with pertinent positive or pertinent negative responses have been documented in the HPI. ROS Other: All systems not noted in ROS Statement are negative. Past Medical History Past Medical History: Asthma History of Any Multi-Drug Resistant Organisms: None Reported Past Surgical History: No Surgical Hx Reported Past Psychological History: Anxiety, Depression Smoking Status: Former smoker Past Alcohol Use History: None Reported Past Drug Use History: Marijuana General Exam - General Exam Comments Initial Comments: 24-year-old female. Alert and oriented. Limitations: no limitations General appearance: alert, in no apparent distress Head exam: Present: atraumatic, normocephalic, normal inspection Eye exam: Present: normal appearance, PERRL, EOMI. Absent: scleral icterus, conjunctival injection, periorbital swelling ENT exam: Present: normal exam Neck exam: Present: normal inspection. Absent: tenderness, meningismus, lymphadenopathy Respiratory exam: Present: normal lung sounds bilaterally. Absent: respiratory distress, wheezes, rales, rhonchi, stridor Cardiovascular Exam: Present: regular rate, normal rhythm, normal heart sounds. Absent: systolic murmur, diastolic murmur, rubs, gallop, clicks GI/Abdominal exam: Present: soft, normal bowel sounds. Absent: distended, tenderness, guarding, rebound, rigid Back exam: Present: normal inspection Neurological exam: Present: alert, oriented X3, CN II-XII intact Psychiatric exam: Present: normal affect, normal mood Skin exam: Present: warm, dry, intact, normal color. Absent: rash Course Vital Signs 03/14/20 09:42 Temperature 97.8 F Pulse Rate 113 H Respiratory 18 Rate Blood Pressure 134/84 O2 Sat by Pulse 99 Oximetry - Reevaluation(s) Reevaluation #1: 03/14/20 11:19 She was reevaluated this time, crying states that she is under a lot of emotional stress stress is that she and her girlfriend breaking up and she will have to move back home with her parents. I discussed with Patient is seems to be a psychological component to her chronic abdominal pain nausea and vomiting. She is quite anxious. She is sitting [facility] tomorrow. Is offered Patient to see psychiatric services today and she declines. Denies suicidal thoughts. Medical Decision Making - Medical Decision Making 24-year-old female presents today for nausea and vomiting, epigastric abdominal pain. She's been to the emergency department multiple times past 2 weeks. This time labwork was reviewed and unremarkable. No ketones in the urine, no significant signs of dehydration. Patient presents emergency Department typically quite anxious and tearful. Today she was more cooperative. After Patient was emergency [place] she did receive a phone call from her girlfriend breaking up today and Patient reports she has to move back with her parents. This made her very upset, tearful stating she's having more pain. I discussed this is consistent with emotional and anxiety causing her abdominal pain and nausea. I discussed the Patient needs to follow up with [facility]. She does have an appointment tomorrow. She denies wanting to psych services today. Patient denies suicidal or homicidal ideation. Patient was given 1 dose of Ativan o rally and discharged. Discussed Patient needs to continue NAUSEA medicine aND ANTIACID medication. - Lab Data Result diagrams: 03/14/20 10:00 03/14/20 10:00 Lab Results 03/14/20 03/14/20 03/14/20 Range/Units 10:00 10:00 10:00 WBC 6.2 (3.8-10.6) k/uL RBC 5.06 (3.80-5.40) m/uL Hgb 14.7 (11.4-16.0) gm/dL Hct 43.2 (34.0-46.0) % MCV 85.4 (80.0-100.0) fL MCH 29.0 (25.0-35.0) pg MCHC 33.9 (31.0-37.0) g/dL RDW 12.2 (11.5-15.5) % Plt Count 267 (150-450) k/uL Neutrophils % 70 % Lymphocytes % 22 % Monocytes % 5 % Eosinophils % 2 % Basophils % 1 % Neutrophils # 4.3 (1.3-7.7) k/uL Lymphocytes # 1.4 (1.0-4.8) k/uL Monocytes # 0.3 (0-1.0) k/uL Eosinophils # 0.1 (0-0.7) k/uL Basophils # 0.0 (0-0.2) k/uL Sodium 139 (137-145) mmol/L Potassium 3.5 (3.5-5.1) mmol/L Chloride 106 (98-107) mmol/L Carbon Dioxide 25 (22-30) mmol/L Anion Gap 8 mmol/L BUN 5 L (7-17) mg/dL Creatinine 0.56 (0.52-1.04) mg/dL Est GFR (CKD-EPI)AfAm >90 (>60 ml/min/1.73 sqM) Est GFR (CKD-EPI)NonAf >90 (>60 ml/min/1.73 sqM) Glucose 99 (74-99) mg/dL Plasma Lactic Acid [place] (0.7-2.0) mmol/L Calcium 9.5 (8.4-10.2) mg/dL Total Bilirubin 1.0 (0.2-1.3) mg/dL AST 38 H (14-36) U/L ALT 48 H (4-34) U/L Alkaline Phosphatase 72 (38-126) U/L Total Protein 7.8 (6.3-8.2) g/dL Albumin 4.7 (3.5-5.0) g/dL Amylase 41 (30-110) U/L Lipase 21 L (23-300) U/L Urine Color Light Yellow Urine Appearance Cloudy H (Clear) Urine pH 8.0 (5.0-8.0) Ur Specific [place] 1.005 (1.001-1.035) Urine Protein Negative (Negative) Urine Glucose (UA) Negative (Negative) Urine Ketones Negative (Negative) Urine Blood Negative (Negative) Urine Nitrite Negative (Negative) Urine Bilirubin Negative (Negative) Urine Urobilinogen <2.0 (<2.0) mg/dL Ur Leukocyte Esterase Large H (Negative) Urine RBC 2 (0-5) /hpf Urine WBC 12 H (0-5) /hpf Ur Squamous Epith Cells 6 H (0-4) /hpf Urine Bacteria Rare H (None) /hpf Urine Mucus Rare H (None) /hpf 03/14/20 Range/Units 10:00 WBC (3.8-10.6) k/uL RBC (3.80-5.40) m/uL Hgb (11.4-16.0) gm/dL Hct (34.0-46.0) % MCV (80.0-100.0) fL MCH (25.0-35.0) pg MCHC (31.0-37.0) g/dL RDW (11.5-15.5) % Plt Count (150-450) k/uL Neutrophils % % Lymphocytes % % Monocytes % % Eosinophils % % Basophils % % Neutrophils # (1.3-7.7) k/uL Lymphocytes # (1.0-4.8) k/uL Monocytes # (0-1.0) k/uL Eosinophils # (0-0.7) k/uL Basophils # (0-0.2) k/uL Sodium (137-145) mmol/L Potassium (3.5-5.1) mmol/L Chloride (98-107) mmol/L Carbon Dioxide (22-30) mmol/L Anion Gap mmol/L BUN (7-17) mg/dL Creatinine (0.52-1.04) mg/dL Est GFR (CKD-EPI)AfAm (>60 ml/min/1.73 sqM) Est GFR (CKD-EPI)NonAf (>60 ml/min/1.73 sqM) Glucose (74-99) mg/dL Plasma Lactic Acid [place] 1.0 (0.7-2.0) mmol/L Calcium (8.4-10.2) mg/dL Total Bilirubin (0.2-1.3) mg/dL AST (14-36) U/L ALT (4-34) U/L Alkaline Phosphatase (38-126) U/L Total Protein (6.3-8.2) g/dL Albumin (3.5-5.0) g/dL Amylase (30-110) U/L Lipase (23-300) U/L Urine Color Urine Appearance (Clear) Urine pH (5.0-8.0) Ur Specific [place] (1.001-1.035) Urine Protein (Negative) Urine Glucose (UA) (Negative) Urine Ketones (Negative) Urine Blood (Negative) Urine Nitrite (Negative) Urine Bilirubin (Negative) Urine Urobilinogen (<2.0) mg/dL Ur Leukocyte Esterase (Negative) Urine RBC (0-5) /hpf Urine WBC (0-5) /hpf Ur Squamous Epith Cells (0-4) /hpf Urine Bacteria (None) /hpf Urine Mucus (None) /hpf 03/14/20 10:40 EKG performed at 1020 shows normal sinus rhythm with sinus arrhythmia, normal EKG. Ventricular rate of 89 bpm. MA interval 136 most seconds. Care instructions 86 most seconds. QT QTc is 366/445 ms. Disposition Clinical Impression: Nausea & vomiting, Anxiety, Emotional crisis Disposition: HOME SELF-CARE Condition: Good Instructions (If sedation given, give patient instructions): Acute Nausea and Vomiting (ED), Anxiety (ED) Additional Instructions: Patient advised to take the medication as prescribed. Follow up with CM tomorrow. Return to the ED if any alarming signs or symptoms occur. Prescriptions: Famotidine [Pepcid AC] 10 mg PO DAILY #20 tablet Is patient prescribed a controlled substance at d/c from ED?: No Referrals: None,Stated [Primary Care Provider] - 1-2 days Time of Disposition: 11:21
[2020-03-14 10:14] LABS: Basophils % (A) 1 %; Eosinophils # (A) 0.1 k/uL (0-0.7); Eosinophils % (A) 2 %; HCT 43.2 % (34.0-46.0); HGB 14.7 gm/dL (11.4-16.0); Lymphocytes # (A) 1.4 k/uL (1.0-4.8); Lymphocytes % (A) 22 %; MCHC 33.9 g/dL (31.0-37.0); MCV 85.4 fL (80.0-100.0); Mean Platelet Volume 7.6; Monocytes # (A) 0.3 k/uL (0-1.0); Monocytes % (A) 5 %; Neutrophils # (A) 4.3 k/uL (1.3-7.7); Neutrophils % (A) 70 %; Platelet Count 267 k/uL (150-450); RBC 5.06 m/uL (3.80-5.40); RDW 12.2 % (11.5-15.5); WBC 6.2 k/uL (3.8-10.6)
[2020-03-14 10:18] LABS: Appearance,Urine Cloudy (Clear); Bacteria,Urine Rare /hpf; Bilirubin,Urine Negative (Negative); Blood,Urine Negative (Negative); Color,Urine Light Yellow; Glucose,Urine (UA) Negative (Negative); Ketones,Urine Negative (Negative); Leukocyte Esterase,Urine Large (Negative); Mucus,Urine Rare /hpf; Nitrite,Urine Negative (Negative); Protein,Urine Negative (Negative); RBC,Urine 2 /hpf (0-5); Specific Gravity,Urine 1.005 (1.001-1.035); Squamous Epithelial Cell,Urine 6 /hpf (0-4); Urobilinogen,Urine <2.0 mg/dL (<2.0); WBC,Urine 12 /hpf (0-5)
[2020-03-14 10:23] LABS: ALT 48 U/L (4-34); AST 38 U/L (14-36); African American GFR (CKD) >90 (>60 ml/min/1.73 sqM); Albumin 4.7 g/dL (3.5-5.0); Alkaline Phosphatase 72 U/L (38-126); Amylase 41 U/L (30-110); Anion Gap 8 mmol/L; Blood Urea Nitrogen 5 mg/dL (7-17); Calcium 9.5 mg/dL (8.4-10.2); Carbon Dioxide 25 mmol/L (22-30); Chloride 106 mmol/L (98-107); Glucose 99 mg/dL (74-99); Non-African American GFR(CKD) >90 (>60 ml/min/1.73 sqM); Sodium 139 mmol/L (137-145); Total Protein 7.8 g/dL (6.3-8.2)
[2020-03-14 10:36] LABS: Potassium 3.5 mmol/L (3.5-5.1)
[2020-03-14] MEDS ORDERED: LORazepam 1 MG TAB PO STA (11:17)
[2020-03-14 11:20] LABS: Urn Cannabinoid Scrn Detected (NotDetected)
[2020-03-14 11:21] LABS: Amphetamine Screen,Urine Not Detected (NotDetected); Barbiturate Screen,Urine Not Detected (NotDetected); Benzodiazepines Screen,Urine Not Detected (NotDetected); Cocaine Screen,Urine Not Detected (NotDetected); Methadone Screen, Urine Not Detected (NotDetected); Opiate Screen,Urine Not Detected (NotDetected); Oxycodone Screen, Urine Not Detected (NotDetected); Phencyclidine Screen,Urine Not Detected (NotDetected); Tricyclic Antidepressant,Urine Not Detected (NotDetected)
[2020-03-14 11:45] VITALS: BP 137/87; PULSE 91; RESP 17; TEMP 98.3
== END 2020-03-14 11:45 | disposition home or self-care (01) ==
LOC: EC 09:40
DX: F43.22 Adjustment disorder with anxiety (principal); R11.2 Nausea with vomiting, unspecified; R10.13 Epigastric pain; Z88.0 Allergy status to penicillin; Z91.030 Bee allergy status; Z91.018 Allergy to other foods; Z87.891 Personal history of nicotine dependence
CPT/HCPCS: 36415; 93005; 80053; 82150; 83605; 83690; 85025; 81001; 80306; 87086; 99284; 96374; 96375 ×2; 96361; J2405; J1885; C9113

== ENCOUNTER 2020-03-19 09:11 | Emergency (ER) | payer OTHER ==
[2020-03-19 09:15] VITALS: PULSE 88; TEMP 98.2
[2020-03-19] MEDS ORDERED: SODIUM CHLORIDE 0.9% 1,000 ML IV STA (09:48)
[2020-03-19 10:13] LABS: Basophils % (A) 1 %; Eosinophils # (A) 0.1 k/uL (0-0.7); Eosinophils % (A) 3 %; HCT 44.7 % (34.0-46.0); HGB 14.5 gm/dL (11.4-16.0); Lymphocytes # (A) 1.5 k/uL (1.0-4.8); Lymphocytes % (A) 29 %; MCH 28.2 pg (25.0-35.0); MCHC 32.5 g/dL (31.0-37.0); MCV 86.7 fL (80.0-100.0); Mean Platelet Volume 7.5; Monocytes # (A) 0.4 k/uL (0-1.0); Monocytes % (A) 7 %; Neutrophils % (A) 58 %; Platelet Count 251 k/uL (150-450); RBC 5.15 m/uL (3.80-5.40); RDW 12.3 % (11.5-15.5); WBC 5.2 k/uL (3.8-10.6)
[2020-03-19 10:17] LABS: Appearance,Urine Cloudy (Clear); Bacteria,Urine Rare /hpf; Bilirubin,Urine Negative (Negative); Blood,Urine Negative (Negative); Color,Urine Light Yellow; Glucose,Urine (UA) Negative (Negative); Ketones,Urine Negative (Negative); Leukocyte Esterase,Urine Large (Negative); Mucus,Urine Rare /hpf; Nitrite,Urine Negative (Negative); Protein,Urine Negative (Negative); Specific Gravity,Urine 1.006 (1.001-1.035); Squamous Epithelial Cell,Urine 18 /hpf (0-4); Urobilinogen,Urine <2.0 mg/dL (<2.0); WBC,Urine 53 /hpf (0-5)
[2020-03-19] MEDS ORDERED: ONDANSETRON 4 MG/2 ML VIAL IVP STA (10:17)
[2020-03-19] MEDS ORDERED: KETOROLAC 30 MG/ML 1 ML VIAL IVP STA (10:17)
[2020-03-19 10:24] LABS: ALT 40 U/L (4-34); AST 30 U/L (14-36); African American GFR (CKD) >90 (>60 ml/min/1.73 sqM); Albumin 4.8 g/dL (3.5-5.0); Alkaline Phosphatase 68 U/L (38-126); Anion Gap 10 mmol/L; Blood Urea Nitrogen 5 mg/dL (7-17); Calcium 9.8 mg/dL (8.4-10.2); Carbon Dioxide 23 mmol/L (22-30); Chloride 107 mmol/L (98-107); Glucose 94 mg/dL (74-99); Non-African American GFR(CKD) >90 (>60 ml/min/1.73 sqM); Potassium 4.1 mmol/L (3.5-5.1); Sodium 140 mmol/L (137-145); Total Bilirubin 1.1 mg/dL (0.2-1.3); Total Protein 7.9 g/dL (6.3-8.2)
--- NOTE | 2020-03-19 11:17 | US ---
EXAMINATION TYPE: US abdomen complete DATE OF EXAM: 03/19/2020 COMPARISON: CT dated 03/02/2020 CLINICAL HISTORY: abd pain. Difficult exam due to overlying bowel gas EXAM MEASUREMENTS: Liver Length: 15.3 cm Gallbladder Wall: 0.1 cm CBD: 0.4 cm Spleen: 9.2 cm Right Kidney: 12.5 x 4.2 x 4.6 cm Left Kidney: 9.5 x 4.8 x 4.0 cm Pancreas: Partially obscured by bowel gas Liver: wnl Gallbladder: wnl Evidence for sonographic Guzman's sign: No CBD: wnl Spleen: wnl Right Kidney: No hydronephrosis or masses seen Left Kidney: No hydronephrosis or masses seen Upper IVC: wnl Abd Aorta: wnl The liver is homogenous. The intrahepatic portion of the IVC and proximal abdominal aorta are within normal limits. There is no evidence of cholelithiasis. Common bile duct is unremarkable. The visu alized portions of the pancreas are homogenous. The spleen is unremarkable. Kidneys are symmetric a nd free of hydronephrosis. No renal lesions are seen. IMPRESSION: Unremarkable abdominal ultrasound other than partial obscuration of the pancreas by overl gabe bowel gas. No sonographic evidence of cholelithiasis or acute cholecystitis.
--- NOTE | 2020-03-19 12:15 | XR ---
EXAMINATION TYPE: XR KUB DATE OF EXAM: 03/19/2020 11:54 AM CLINICAL HISTORY: Constipation and abdominal pain TECHNIQUE: Single upright image of the abdomen is obtained. COMPARISON: 03/02/2020. FINDINGS: Scattered gas is seen in non-distended small bowel loops. Gas and fecal material is seen in non-distended colon. There is no pneumoperitoneum or abnormal calcification appreciated. The lung ba ses are clear and the osseous structures are intact. IMPRESSION: Nonobstructive bowel gas pattern.
--- NOTE | 2020-03-19 12:33 | ED ---
Abdominal Pain HPI - General Chief Complaint: Abdominal Pain Stated Complaint: no bowel movement/back pain Time Seen by Provider: 03/19/20 09:15 Source: patient Mode of arrival: ambulatory Limitations: no limitations - History of Present Illness Initial Comments: The patient is a 24-year-old female past history of asthma who presents to the emergency room with reported abdominal pain. The patient seemed to the emergency room for similar complaints. She states that she has epigastric abdominal pain with nausea. States that she has been dry heaving however has had no vomiting. Denies hematemesis. Patient does have Zofran at home to take at her disposal however states that she ran out of medications. She also admits to cramping abdominal pain and suprapubic discomfort especially with urinating. States the pain does go to her back. She denies any fevers or chills. No hematuria or difficulty voiding. Denies diarrhea or melenic stools or hematochezia. Does admit to constipation states she has improved in one week. Also reports that she hasn't eaten much either. Patient has had laboratory studies, and an ultrasound CT performed. States she has yet to follow-up with GI. She denies any abnormal vaginal discharge, bleeding or concern for . There are no alleviating, precipitating modifying factors - Related Data Previous Rx's Medication Instructions Recorded Azithromycin [Zithromax Z-pack] 250 mg PO DIRECTED #6 tab 01/04/19 Ibuprofen [Motrin] 600 mg PO Q6HR PRN #20 tab 01/04/19 Azithromycin [Zithromax Z-pack] 250 mg PO DIRECTED #6 tab 01/05/19 predniSONE 50 mg PO DAILY #5 tablet 01/05/19 Famotidine [Pepcid] 20 mg PO DAILY #14 tablet 03/02/20 Ondansetron [Zofran] 4 mg PO Q8HR PRN #12 tab 03/02/20 Famotidine [Pepcid] 20 mg PO BID #28 tablet 03/04/20 Ondansetron Odt [Zofran Odt] 4 mg PO Q8HR PRN #10 tab 03/04/20 Promethazine Suppository 25 mg RECTAL TID #5 supp 03/06/20 [Phenergan] Nitrofurantoin Monohyd/M-Cryst 100 mg PO Q12HR #14 cap 03/07/20 [Macrobid] Ondansetron [Zofran ODT] 4 mg PO Q8HR #12 tab 03/07/20 Famotidine [Pepcid AC] 10 mg PO DAILY #20 tablet 03/14/20 Cephalexin [Keflex] 500 mg PO Q6HR #28 cap 03/19/20 Ondansetron Odt [Zofran Odt] 4 mg PO Q8HR PRN #20 tab 03/19/20 Polyethylene Glycol 3350 [Miralax] 17 gm PO DAILY #527 gm 03/19/20 Allergies Allergy/AdvReac Type Severity Reaction Status Date / Time Penicillins Allergy Rash/Hives Verified 03/19/20 09:14 venom-wasp Allergy Anaphylaxis Verified 03/19/20 09:14 SOUR CREAM Allergy Swelling Uncoded 03/19/20 09:14 Review of Systems ROS Statement: Those systems with pertinent positive or pertinent negative responses have been documented in the HPI. ROS Other: All systems not noted in ROS Statement are negative. Past Medical History Past Medical History: Asthma History of Any Multi-Drug Resistant Organisms: None Reported Past Surgical History: No Surgical Hx Reported Past Psychological History: Anxiety, Depression Smoking Status: Former smoker Past Alcohol Use History: None Reported Past Drug Use History: Marijuana General Exam Limitations: no limitations General appearance: alert, in no apparent distress Head exam: Present: atraumatic, normocephalic, normal inspection Eye exam: Present: normal appearance, PERRL, EOMI. Absent: scleral icterus, conjunctival injection, periorbital swelling ENT exam: Present: normal exam, mucous membranes moist Neck exam: Present: normal inspection. Absent: tenderness, meningismus, lymphadenopathy Respiratory exam: Present: normal lung sounds bilaterally. Absent: respiratory distress, wheezes, rales, rhonchi, stridor Cardiovascular Exam: Present: regular rate, normal rhythm, normal heart sounds. Absent: systolic murmur, diastolic murmur, rubs, gallop, clicks GI/Abdominal exam: Present: soft, tenderness (epigastric), normal bowel sounds. Absent: distended, guarding, rebound, rigid Extremities exam: Present: normal inspection, full ROM, normal capillary refill. Absent: tenderness, pedal edema, joint swelling, calf tenderness Back exam: Present: normal inspection Neurological exam: Present: alert, oriented X3, CN II-XII intact Psychiatric exam: Present: normal affect, normal mood Skin exam: Present: warm, dry, intact, normal color. Absent: rash Course Vital Signs 03/19/20 03/19/20 03/19/20 09:12 09:14 10:14 Temperature 98.2 F Pulse Rate 88 Respiratory 18 20 20 Rate Blood Pressure 117/83 117/74 O2 Sat by Pulse 100 Oximetry 03/19/20 03/19/20 03/19/20 11:14 12:14 12:51 Temperature Pulse Rate 88 Respiratory 20 20 20 Rate Blood Pressure 120/73 120/73 O2 Sat by Pulse 100 Oximetry Medical Decision Making - Medical Decision Making Upon arrival the patient is placed into room 10. A thorough history and physical exam is performed. Her 5 he is established. Laboratory studies were conducted. Patient was given a dose of Zofran and Toradol. Laboratory studies are unremarkable. Urinalysis shows large leukocyte esterase and 53 with a pulse however it is not a clean catch. The patient is reporting suprapubic discomfort and flank pain therefore I will treat her clinically as a pyelonephritis.. I did repeat an ultrasound which demonstrates no acute fin dings. At this time the patient will be discharged home. I did refill her prescription for Zofran. I also provided her with an antibiotic and await her urine culture. Patient is also given a prescription for MiraLAX due to reported constipation. KUB is performed which demonstrates no stool impaction. At this time patient will be discharged home. She is to follow Dr. Dalal in office. Return to the emergency room for any new or worsening symptoms. Patient was in agreement with the treatment plan and she was discharged home stable condition - Lab Data Result diagrams: 03/19/20 10:00 03/19/20 10:00 Lab Results 03/19/20 03/19/20 03/19/20 Range/Units 10:00 10:00 10:00 WBC 5.2 (3.8-10.6) k/uL RBC 5.15 (3.80-5.40) m/uL Hgb 14.5 (11.4-16.0) gm/dL Hct 44.7 (34.0-46.0) % MCV 86.7 (80.0-100.0) fL MCH 28.2 (25.0-35.0) pg MCHC 32.5 (31.0-37.0) g/dL RDW 12.3 (11.5-15.5) % Plt Count 251 (150-450) k/uL Neutrophils % 58 % Lymphocytes % 29 % Monocytes % 7 % Eosinophils % 3 % Basophils % 1 % Neutrophils # 3.0 (1.3-7.7) k/uL Lymphocytes # 1.5 (1.0-4.8) k/uL Monocytes # 0.4 (0-1.0) k/uL Eosinophils # 0.1 (0-0.7) k/uL Basophils # 0.0 (0-0.2) k/uL Sodium (137-145) mmol/L Potassium (3.5-5.1) mmol/L Chloride (98-107) mmol/L Carbon Dioxide (22-30) mmol/L Anion Gap mmol/L BUN (7-17) mg/dL Creatinine (0.52-1.04) mg/dL Est GFR (CKD-EPI)AfAm (>60 ml/min/1.73 sqM) Est GFR (CKD-EPI)NonAf (>60 ml/min/1.73 sqM) Glucose (74-99) mg/dL Calcium (8.4-10.2) mg/dL Total Bilirubin (0.2-1.3) mg/dL AST (14-36) U/L ALT (4-34) U/L Alkaline Phosphatase (38-126) U/L Total Protein (6.3-8.2) g/dL Albumin (3.5-5.0) g/dL Lipase (23-300) U/L Urine Color Light Yellow Urine Appearance Cloudy H (Clear) Urine pH 8.0 (5.0-8.0) Ur Specific [place] 1.006 (1.001-1.035) Urine Protein Negative (Negative) Urine Glucose (UA) Negative (Negative) Urine Ketones Negative (Negative) Urine Blood Negative (Negative) Urine Nitrite Negative (Negative) Urine Bilirubin Negative (Negative) Urine Urobilinogen <2.0 (<2.0) mg/dL Ur Leukocyte Esterase Large H (Negative) Urine WBC 53 H (0-5) /hpf Ur Squamous Epith Cells 18 H (0-4) /hpf Urine Bacteria Rare H (None) /hpf Urine Mucus Rare H (None) /hpf Urine HCG, Qual Not Detected (Not Detectd) 03/19/20 Range/Units 10:00 WBC (3.8-10.6) k/uL RBC (3.80-5.40) m/uL Hgb (11.4-16.0) gm/dL Hct (34.0-46.0) % MCV (80.0-100.0) fL MCH (25.0-35.0) pg MCHC (31.0-37.0) g/dL RDW (11.5-15.5) % Plt Count (150-450) k/uL Neutrophils % % Lymphocytes % % Monocytes % % Eosinophils % % Basophils % % Neutrophils # (1.3-7.7) k/uL Lymphocytes # (1.0-4.8) k/uL Monocytes # (0-1.0) k/uL Eosinophils # (0-0.7) k/uL Basophils # (0-0.2) k/uL Sodium 140 (137-145) mmol/L Potassium 4.1 (3.5-5.1) mmol/L Chloride 107 (98-107) mmol/L Carbon Dioxide 23 (22-30) mmol/L Anion Gap 10 mmol/L BUN 5 L (7-17) mg/dL Creatinine 0.56 (0.52-1.04) mg/dL Est GFR (CKD-EPI)AfAm >90 (>60 ml/min/1.73 sqM) Est GFR (CKD-EPI)NonAf >90 (>60 ml/min/1.73 sqM) Glucose 94 (74-99) mg/dL Calcium 9.8 (8.4-10.2) mg/dL Total Bilirubin 1.1 (0.2-1.3) mg/dL AST 30 (14-36) U/L ALT 40 H (4-34) U/L Alkaline Phosphatase 68 (38-126) U/L Total Protein 7.9 (6.3-8.2) g/dL Albumin 4.8 (3.5-5.0) g/dL Lipase 19 L (23-300) U/L Urine Color Urine Appearance (Clear) Urine pH (5.0-8.0) Ur Specific [place] (1.001-1.035) Urine Protein (Negative) Urine Glucose (UA) (Negative) Urine Ketones (Negative) Urine Blood (Negative) Urine Nitrite (Negative) Urine Bilirubin (Negative) Urine Urobilinogen (<2.0) mg/dL Ur Leukocyte Esterase (Negative) Urine WBC (0-5) /hpf Ur Squamous Epith Cells (0-4) /hpf Urine Bacteria (None) /hpf Urine Mucus (None) /hpf Urine HCG, Qual (Not Detectd) Disposition Clinical Impression: Abnormal urinalysis, Nausea & vomiting, Constipation, Abdominal pain Disposition: HOME SELF-CARE Condition: Stable Instructions (If sedation given, give patient instructions): Abdominal Pain (ED) Additional Instructions: Please follow up with Dr. Rodriguez in regards to your abdominal pain. Return to the emergency room for any new or worsening symptoms Prescriptions: Cephalexin [Keflex] 500 mg PO Q6HR #28 cap Polyethylene Glycol 3350 [Miralax] 17 gm PO DAILY #527 gm Ondansetron Odt [Zofran Odt] 4 mg PO Q8HR PRN #20 tab PRN Reason: Nausea Is patient prescribed a controlled substance at d/c from ED?: No Referrals: None,Stated [Primary Care Provider] - 1-2 days Janeen Rodriguez MD [STAFF PHYSICIAN] - 1-2 days Time of Disposition: 12:33
[2020-03-19 12:45] VITALS: RESP 20
[2020-03-19 12:47] VITALS: BP 120/73
== END 2020-03-19 12:53 | disposition home or self-care (01) ==
LOC: EC 09:11
DX: K59.00 Constipation, unspecified (principal); R82.998 Other abnormal findings in urine; R11.2 Nausea with vomiting, unspecified; Z87.891 Personal history of nicotine dependence; Z88.0 Allergy status to penicillin; Z91.038 Other insect allergy status; Z91.018 Allergy to other foods
CPT/HCPCS: 99284; 96374; 96375; 96361; 36415; 80053; 83690; 85025; 81001; 81025; 87086; 74018; 76700; J2405; J1885

== ENCOUNTER 2020-05-31 00:18 | Emergency (ER) | payer BC, OTHER ==
[2020-05-31 00:27] VITALS: BP 143/98; RESP 20; TEMP 98
[2020-05-31] MEDS ORDERED: AZITHROMYCIN 500 MG TAB PO STA (00:37)
[2020-05-31] MEDS ORDERED: IBUPROFEN 600 MG TAB PO STA (00:37)
--- NOTE | 2020-05-31 00:43 | ED ---
General Adult HPI - General Stated complaint: LT ear pain Time Seen by Provider: 05/31/20 00:20 Source: patient, RN notes reviewed Mode of arrival: ambulatory Limitations: no limitations - History of Present Illness Initial comments: 24-year-old female presents to the emergency department for a chief complaint of left ear pain. Patient states however today she has had a sore throat and now her left ear hurts. Patient reports she went to [facility] and was told she had a virus. Patient denies shortness of breath. Patient denies fevers or chills. Patient has not taken anything for pain or tried anything to help with her pain.Patient has no other complaints at this time including shortness of breath, chest pain, abdominal pain, nausea or vomiting, headache, or visual changes. - Related Data Previous Rx's Medication Instructions Recorded Azithromycin [Zithromax Z-pack] 250 mg PO DIRECTED #6 tab 01/04/19 Ibuprofen [Motrin] 600 mg PO Q6HR PRN #20 tab 01/04/19 Azithromycin [Zithromax Z-pack] 250 mg PO DIRECTED #6 tab 01/05/19 predniSONE 50 mg PO DAILY #5 tablet 01/05/19 Famotidine [Pepcid] 20 mg PO DAILY #14 tablet 03/02/20 Ondansetron [Zofran] 4 mg PO Q8HR PRN #12 tab 03/02/20 Famotidine [Pepcid] 20 mg PO BID #28 tablet 03/04/20 Ondansetron Odt [Zofran Odt] 4 mg PO Q8HR PRN #10 tab 03/04/20 Promethazine Suppository 25 mg RECTAL TID #5 supp 03/06/20 [Phenergan] Nitrofurantoin Monohyd/M-Cryst 100 mg PO Q12HR #14 cap 03/07/20 [Macrobid] Ondansetron [Zofran ODT] 4 mg PO Q8HR #12 tab 03/07/20 Famotidine [Pepcid AC] 10 mg PO DAILY #20 tablet 03/14/20 Cephalexin [Keflex] 500 mg PO Q6HR #28 cap 03/19/20 Ondansetron Odt [Zofran Odt] 4 mg PO Q8HR PRN #20 tab 05/24/20 Polyethylene Glycol 3350 [Miralax] 17 gm PO DAILY #527 gm 03/19/20 Azithromycin [Zithromax Z-pack] 250 mg PO DIRECTED #6 tab 05/31/20 Allergies Allergy/AdvReac Type Severity Reaction Status Date / Time Penicillins Allergy Rash/Hives Verified 05/31/20 00:27 venom-wasp Allergy Anaphylaxis Verified 05/31/20 00:27 SOUR CREAM Allergy Swelling Uncoded 05/31/20 00:27 Review of Systems ROS Statement: Those systems with pertinent positive or pertinent negative responses have been documented in the HPI. ROS Other: All systems not noted in ROS Statement are negative. Past Medical History Past Medical History: Asthma History of Any Multi-Drug Resistant Organisms: None Reported Past Surgical History: No Surgical Hx Reported Past Psychological History: Anxiety, Depression Smoking Status: Never smoker Past Alcohol Use History: None Reported Past Drug Use History: Marijuana General Exam Limitations: no limitations General appearance: alert, in no apparent distress Head exam: Present: atraumatic, normocephalic, normal inspection Eye exam: Present: normal appearance, PERRL, EOMI. Absent: scleral icterus, conjunctival injection, periorbital swelling ENT exam: Present: normal exam, mucous membranes moist, normal external ear exam. Absent: normal oropharynx (patient does have bilaterally enlarged tonsils without exudates, uvula midline, ), TM's normal bilaterally ((Membrane is erythematous and bulging consistent with otitis media. There is no evidence for otitis externa, no edema of the external auditory canal.) Neck exam: Present: normal inspection, full ROM. Absent: tenderness, meningismus, lymphadenopathy Respiratory exam: Present: normal lung sounds bilaterally. Absent: respiratory distress, wheezes, rales, rhonchi, stridor Cardiovascular Exam: Present: regular rate, normal rhythm, normal heart sounds. Absent: systolic murmur, diastolic murmur, rubs, gallop, clicks GI/Abdominal exam: Present: soft, normal bowel sounds. Absent: distended, tenderness, guarding, rebound, rigid Neurological exam: Present: alert Course Vital Signs 05/31/20 05/31/20 00:22 00:44 Temperature 98 F Pulse Rate 119 H 97 Respiratory 20 Rate Blood Pressure 143/98 O2 Sat by Pulse 97 98 Oximetry Medical Decision Making - Medical Decision Making Vitals are stable. Patient initially tachycardic however this did improve throughout her stay. Patient was very anxious beginning of exam. HPI and physical exam as documented. Pertinent for a left otitis media. Patient is ALLERGIC to amoxicillin and was treated with azithromycin. Patient will follow- up with her doctor in one to 2 days and return for any worsening symptoms. Patient was tested for Covid at another emergency center last night. Disposition Clinical Impression: Left ear pain Disposition: HOME SELF-CARE Condition: Good Instructions (If sedation given, give patient instructions): Earache (ED) Additional Instructions: Please take antibiotics as directed. Take Motrin and Tylenol for pain. Use warm compresses on the left ear. Follow up with primary care in 1-2 days. Return here to the emergency room should he have any worsening symptoms. Prescriptions: Azithromycin [Zithromax Z-pack] 250 mg PO DIRECTED #6 tab Is patient prescribed a controlled substance at d/c from ED?: No Referrals: Becky Ring MD [REFERRING] - 1-2 days Time of Disposition: 00:48
[2020-05-31 00:45] VITALS: PULSE 97
== END 2020-05-31 01:16 | disposition home or self-care (01) ==
LOC: EC 00:18
DX: H92.02 Otalgia, left ear (principal); R00.0 Tachycardia, unspecified; Z88.0 Allergy status to penicillin; Z91.038 Other insect allergy status; Z91.018 Allergy to other foods
CPT/HCPCS: 99282

== ENCOUNTER 2021-03-05 23:52 | Emergency (ER) | payer OTHER ==
[2021-03-05 23:59] VITALS: RESP 18
[2021-03-06 01:39] LABS: Amphetamine Screen,Urine Not Detected (NotDetected); Barbiturate Screen,Urine Not Detected (NotDetected); Benzodiazepines Screen,Urine Not Detected (NotDetected); Cocaine Screen,Urine Not Detected (NotDetected); Methadone Screen, Urine Not Detected (NotDetected); Opiate Screen,Urine Not Detected (NotDetected); Oxycodone Screen, Urine Not Detected (NotDetected); Phencyclidine Screen,Urine Not Detected (NotDetected); Tricyclic Antidepressant,Urine Not Detected (NotDetected); Urn Cannabinoid Scrn Detected (NotDetected)
--- NOTE | 2021-03-06 03:17 | ED ---
Psych HPI - General Chief Complaint: Psychiatric Symptoms Stated Complaint: Mental Health Time Seen by Provider: 03/06/21 00:07 Source: patient, police Mode of arrival: ambulatory - History of Present Illness Initial Comments: 25 year-old female patient presents to the emergency department for evaluation of suicidal ideation that started a couple of days ago. States that she has been having some relationship problems. Denies any specific plan to take her life. She did have a previous suicide attempt when she was 17 years old. Denies any hospitalization for this. Denies any current injury or illness. Admits to smoking marijuana. Rare alcohol use. - Related Data Previous Rx's Medication Instructions Recorded Azithromycin [Zithromax Z-pack (6 250 mg PO DIRECTED #6 tab 01/04/19 tabs)] Ibuprofen [Motrin] 600 mg PO Q6HR PRN #20 tab 01/04/19 Azithromycin [Zithromax Z-pack (6 250 mg PO DIRECTED #6 tab 01/05/19 tabs)] predniSONE 50 mg PO DAILY #5 tablet 01/05/19 Famotidine [Pepcid] 20 mg PO DAILY #14 tablet 03/02/20 Ondansetron [Zofran] 4 mg PO Q8HR PRN #12 tab 03/02/20 Famotidine [Pepcid] 20 mg PO BID #28 tablet 03/04/20 Ondansetron Odt [Zofran Odt] 4 mg PO Q8HR PRN #10 tab 03/04/20 Promethazine Suppository 25 mg RECTAL TID #5 supp 03/06/20 [Phenergan] Nitrofurantoin Monohyd/M-Cryst 100 mg PO Q12HR #14 cap 03/07/20 [Macrobid] Ondansetron [Zofran ODT] 4 mg PO Q8HR #12 tab 03/07/20 Famotidine [Pepcid AC] 10 mg PO DAILY #20 tablet 03/14/20 Cephalexin [Keflex] 500 mg PO Q6HR #28 cap 03/19/20 Ondansetron Odt [Zofran Odt] 4 mg PO Q8HR PRN #20 tab 03/19/20 Polyethylene Glycol 3350 [Miralax] 17 gm PO DAILY #527 gm 03/19/20 Azithromycin [Zithromax Z-pack (6 250 mg PO DIRECTED #6 tab 05/31/20 tabs)] Allergies Allergy/AdvReac Type Severity Reaction Status Date / Time Penicillins Allergy Rash/Hives Verified 03/05/21 23:56 venom-wasp Allergy Anaphylaxis Verified 03/05/21 23:56 SOUR CREAM Allergy Swelling Uncoded 03/05/21 23:56 Review of Systems ROS Statement: Those systems with pertinent positive or pertinent negative responses have been documented in the HPI. ROS Other: All systems not noted in ROS Statement are negative. Past Medical History Past Medical History: Asthma History of Any Multi-Drug Resistant Organisms: None Reported Past Surgical History: No Surgical Hx Reported Past Psychological History: Anxiety, Depression Smoking Status: Never smoker Past Alcohol Use History: Rare Past Drug Use History: Marijuana General Exam Limitations: no limitations General appearance: alert, in no apparent distress Eye exam: Present: normal appearance, PERRL, EOMI. Absent: scleral icterus, conjunctival injection, periorbital swelling ENT exam: Present: normal exam, normal oropharynx, mucous membranes moist Respiratory exam: Present: normal lung sounds bilaterally. Absent: respiratory distress, wheezes, rales, rhonchi, stridor Cardiovascular Exam: Present: regular rate, normal rhythm, normal heart sounds. Absent: systolic murmur, diastolic murmur, rubs, gallop, clicks GI/Abdominal exam: Present: soft, normal bowel sounds. Absent: distended, tenderness, guarding, rebound, rigid Neurological exam: Present: alert Psychiatric exam: Present: depressed, suicidal ideation. Absent: homicidal ideation Skin exam: Present: warm, dry, intact, normal color. Absent: rash Course Vital Signs 03/05/21 03/06/21 23:56 03:34 Temperature 98.4 F 97 F L Pulse Rate 73 78 Respiratory 18 18 Rate Blood Pressure 126/77 133/77 O2 Sat by Pulse 96 98 Oximetry Medical Decision Making - Medical Decision Making 25-year-old female patient presented to the emergency department today for evaluation of suicidal ideation and depression. Physical examination is unremarkable. She was cleared medically and evaluated by emergency psychiatric services. They were able to develop a safety plan patient will be discharged home. She will be going home with a friend. She is instructed to follow-up with outpatient mental health services as soon as possible. Return parameters were discussed in detail. She verbalizes understanding and agrees with this plan. My attending is Dr. Ramos. - Lab Data Lab Results 03/06/21 03/06/21 Range/Units 00:20 00:20 Urine HCG, Qual Not Detected (Not Detectd) Urine Opiates Screen Not Detected (NotDetected) Ur Oxycodone Screen Not Detected (NotDetected) Urine Methadone Screen Not Detected (NotDetected) Ur Propoxyphene Screen Not Detected (NotDetected) Ur Barbiturates Screen Not Detected (NotDetected) U Tricyclic Antidepress Not Detected (NotDetected) Ur Phencyclidine Scrn Not Detected (NotDetected) Ur Amphetamines Screen Not Detected (NotDetected) U Methamphetamines Scrn Not Detected (NotDetected) U Benzodiazepines Scrn Not Detected (NotDetected) Urine Cocaine Screen Not Detected (NotDetected) U Marijuana (THC) Screen Detected H (NotDetected) Disposition Clinical Impression: Depression, Suicidal ideation Disposition: HOME SELF-CARE Condition: Good Instructions (If sedation given, give patient instructions): Depression (ED), Suicide Prevention (ED) Additional Instructions: Follow-up with outpatient mental health services as directed. Return to the emergency department for any new, worsening, or concerning symptoms. Is patient prescribed a controlled substance at d/c from ED?: No Referrals: None,Stated [Primary Care Provider] - 1-2 days Time of Disposition: 03:17
[2021-03-06 03:37] VITALS: BP 133/77; PULSE 78; TEMP 97
== END 2021-03-06 03:37 | disposition home or self-care (01) ==
LOC: EC 23:52
DX: F32.9 Major depressive disorder, single episode, unspecified (principal); J45.909 Unspecified asthma, uncomplicated; F12.90 Cannabis use, unspecified, uncomplicated
CPT/HCPCS: 80306; 81025; 82075; 99285

== ENCOUNTER 2023-01-26 18:45 | Emergency (ER) | payer OTHER ==
[2023-01-26 18:53] VITALS: RESP 20; TEMP 98.1
[2023-01-26] MEDS ORDERED: KETOROLAC 15 MG/ML 1 ML VIAL IVP STA (19:03)
[2023-01-26] MEDS ORDERED: SODIUM CHLORIDE 0.9% 1,000 ML IV STA (19:03)
[2023-01-26] MEDS ORDERED: ONDANSETRON 4 MG/2 ML VIAL IVP STA (19:03)
[2023-01-26] MEDS ORDERED: PANTOPRAZOLE 40 MG/10 ML VIAL IVP STA (19:03)
--- NOTE | 2023-01-26 19:20 | ED ---
General Adult HPI - General Chief complaint: Abdominal Pain Stated complaint: abd pain Time Seen by Provider: 01/26/23 18:46 Source: patient, RN notes reviewed, old records reviewed Mode of arrival: EMS Limitations: no limitations - History of Present Illness Initial comments: Patient is a 27 female who presents emergency Department complaining of one-day of epigastric right upper quadrant abdominal pain. Describes it as a sharp, achy sensation. Associated with nausea and nonbilious, emesis. Began after eating anyways last night. States she has been unable to tolerate oral intake at the day today. Has had multiple episodes of emesis. Denies any diarrhea. Denies any radiation of the pain. Denies chest pain or shortness of breath. Denies any headaches, lightheadedness. Denies any fevers, cough, chest pain. Has no other acute complaints at this time. Denies urinary complaints or vaginal discharge or bleeding. Does not believe she is . Presents for further evaluation. no prior abdominal surgeries. - Related Data Previous Rx's Medication Instructions Recorded Ibuprofen [Motrin] 600 mg PO Q8HR PRN #20 tab 12/01/22 Dicyclomine [Bentyl] 10 mg PO TID PRN 7 Days #21 capsule 01/26/23 Famotidine [Pepcid] 20 mg PO DAILY 7 Days #7 tablet 01/26/23 Ondansetron Odt [Zofran Odt] 4 mg PO Q8HR PRN 3 Days #3 tab 01/26/23 Allergies Allergy/AdvReac Type Severity Reaction Status Date / Time Penicillins Allergy Rash/Hives Verified 01/26/23 21:31 venom-wasp Allergy Anaphylaxis Verified 01/26/23 21:31 Review of Systems ROS Statement: Those systems with pertinent positive or pertinent negative responses have been documented in the HPI. Review of Systems: CONST: Denies fever EYES: Denies blurry vision ENT: Denies nasal congestion C/V: Denies Chest pain RESP: Denies shortness of breath GI: Endorses abdominal pain : Denies dysuria SKIN: Denies rash. MSK: Denies joint pain. NEURO: Denies headache ROS Other: All systems not noted in ROS Statement are negative. Past Medical History Past Medical History: Asthma History of Any Multi-Drug Resistant Organisms: None Reported Past Surgical History: No Surgical Hx Reported Past Psychological History: Anxiety, Depression Smoking Status: Vaper Past Alcohol Use History: Rare Past Drug Use History: Marijuana General Exam - General Exam Comments Initial Comments: General: Appears in mild distress secondary to abdominal pain. HEAD: Normal with no signs of head trauma. EYES: EOMI ENT: Hearing grossly intact, normal oropharynx. Moist mucous membranes RESPIRATORY: Clear breath sounds bilaterally. No wheezes, rales, or rhonchi. C/V: Regular rate and rhythm. S1 and S2 auscultated, no edema, peripheral pulses 2+ and intact throughout ABD: Abdomen is soft, nondistended. Tender epigastric and right upper quadrant. No rebound tenderness. No peritoneal signs. Mild guarding. EXT: Normal range of motion, no obvious deformity SKIN: No rashes or lesions observed on exposed skin. NEURO: Alert and oriented 4. Limitations: no limitations Course Vital Signs 01/26/23 01/26/23 01/26/23 18:51 18:52 20:01 Temperature 98.1 F Pulse Rate 89 89 68 Respiratory 20 20 20 Rate Blood Pressure 141/83 156/87 130/60 O2 Sat by Pulse 98 98 98 Oximetry 01/26/23 21:57 Temperature Pulse Rate 88 Respiratory 20 Rate Blood Pressure 130/86 O2 Sat by Pulse 98 Oximetry Medical Decision Making - Medical Decision Making Was pt. sent in by a medical professional or institution (, PA, HUMAN RESOURCES FILE CLERK, urgent care, hospital, or [place] [facility] facility...) When possible be specific @ -No Did you speak to anyone other than the patient for history (EMS, parent, family, police, friend...)? What history was obtained from this source @ -No Did you review nursing and triage notes (agree or disagree)? Why? @ -I reviewed and agree with nursing and triage notes Were old charts reviewed (outside hosp., previous admission, EMS record, old EKG, old radiological studies, urgent care reports/EKG's, [place] health [facility] facility records)? Report findings @ -No old charts were reviewed Differential Diagnosis (chest pain, altered mental status, abdominal pain women, abdominal pain men, vaginal bleeding, weakness, fever, dyspnea, syncope, he adache, dizziness, GI bleed, back pain, seizure, CVA, palpatations, mental health, musculoskeletal)? @ -Differential Abdominal Pain Women: Appendicitis, Cholecystitis, diverticulosis, ischemic bowel, pancreatitis, hepatitis, UTI, gastroenteritis, AAA, incarcerated hernia, bowel obstruction, constipation, inflammatory bowel, hepatitis, peptic ulcer disease, splenic infarction, perforated viscus, vulvitis, ovarian torsion, PID, kidney stone, placenta abruption, this is not meant to be an all-inclusive list EKG interpreted by me (3pts min.). @ -None done X-rays interpreted by me (1pt min.). @ -KUB x-ray shows no obvious acute intra-abdominal process. CT interpreted by me (1pt min.). @ -None done U/S interpreted by me (1pt. min.). @ -Ultrasound of the gallbladder reveals no obvious evidence of cholecystitis or gallstones. Interpreted by radiology. What testing was considered but not performed or refused? (CT, X-rays, U/S, labs)? Why? @ -None What meds were considered but not given or refused? Why? @ -None Did you discuss the management of the patient with other professionals (professionals i.e. , PA, HUMAN RESOURCES FILE CLERK, lab, RT, psych nurse, psychotherapist social worker, sock examiner, teacher, executive vice president and chief operating officer, machine adjuster leader case trim)? Give summary @ -No Was smoking cessation discussed for >3mins.? @ -No Was critical care preformed (if so, how long)? @ -No Were there social determinants of health that impacted care today? How? (Homelessness, low income, unemployed, alcoholism, drug addiction, transportation, low edu. Level, literacy, decrease access to med. care, halfway, rehab)? @ -No Was there de-escalation of care discussed even if they declined (Discuss DNR or withdrawal of care, Hospice)? DNR status @ -No What co-morbidities impacted this encounter? (DM, HTN, Smoking, COPD, CAD, Cancer, CVA, ARF, Chemo, Hep., AIDS, mental health diagnosis, sleep apnea, morb id obesity)? @ -None Was patient admitted / discharged? Hospital course, mention meds given and route, prescriptions, significant lab abnormalities, going to OR and other pertinent info. @ -Based on the patient's presentation and physical exam, I am concerned for acute intrapelvic process for current symptoms. We will obtain abdominal labo ratory studies, as well as a right upper quadrant ultrasound and KUB to start. She'll receive symptomatic treatment IV fluids, Toradol, Zofran, Protonix. She was in agreement this plan. Vital signs within acceptable limits. Patient's imaging is unremarkable. Labs are remarkable for a leukocytosis of 17 which is likely reactive as well as potentially from an infectious process. Hep atobiliary labs are unremarkable. She is not . Urine is contaminated catch. Patient is Covid positive. I discussed the results with the patient. She is feeling improved. Tolerating oral intake. We discussed isolation for 5 days after symptom onset due to her Covid infection. We discussed symptomatic treatment. We discussed obtaining a pulse ox monitor oxygenation. She was in agreement this plan. She'll be discharged home at this time. Strict return precautions discussed. I will provide the patient with a prescription for Zofran, Bentyl, Pepcid. I instructed the patient to follow up with their PCP in the next 1-3 days. I explained that the patient should return to the emergency department if they experience any worsening symptoms. Strict return precautions were discussed with the patient. The patient expressed understanding of these instructions. I answe red all questions that the patient had. The patient was discharged home in good condition with their prescriptions and follow up information. Undiagnosed new problem with uncertain prognosis? @ -No Drug Therapy requiring intensive monitoring for toxicity (Heparin, Nitro, Insulin, Cardizem)? @ -No Were any procedures done? @ -No Diagnosis/symptom? @ -Covid 19 infection Acute, or Chronic, or Acute on Chronic? @ -Acute Uncomplicated (without systemic symptoms) or Complicated (systemic symptoms)? @ -Complicated Side effects of treatment? @ -none Exacerbation, Progression, or Severe Exacerbation] @ -no Poses a threat to life or bodily function? @ -no Diagnosis/symptom? @ -Abdominal pain of unknown etiology Acute, or Chronic, or Acute on Chronic? @ -Acute Uncomplicated (without systemic symptoms) or Complicated (systemic symptoms)? @ -Uncomplicated Side effects of treatment? @ -none Exacerbation, Progression, or Severe Exacerbation] @ -no Poses a threat to life or bodily function? @ -no Diagnosis/symptom? @ -Nausea and vomiting Acute, or Chronic, or Acute on Chronic? @ -Acute Uncomplicated (without systemic symptoms) or Complicated (systemic symptoms)? @ -Uncomplicated Side effects of treatment? @ -none Exacerbation, Progression, or Severe Exacerbation] @ -no Poses a threat to life or bodily function? @ -no - Lab Data Result diagrams: 01/26/23 19:03 01/26/23 19:03 Lab Results 01/26/23 01/26/23 01/26/23 Range/Units 19:03 19:03 19:03 WBC 17.1 H (3.8-10.6) k/uL RBC 5.06 (3.80-5.40) m/uL Hgb 15.1 (11.4-16.0) gm/dL Hct 41.9 (34.0-46.0) % MCV 82.9 (80.0-100.0) fL MCH 29.8 (25.0-35.0) pg MCHC 36.0 (31.0-37.0) g/dL RDW 12.6 (11.5-15.5) % Plt Count 267 (150-450) k/uL MPV 8.3 Neutrophils % 88 % Lymphocytes % 8 % Monocytes % 2 % Eosinophils % 1 % Basophils % 0 % Neutrophils # 15.0 H (1.3-7.7) k/uL Lymphocytes # 1.4 (1.0-4.8) k/uL Monocytes # 0.4 (0-1.0) k/uL Eosinophils # 0.2 (0-0.7) k/uL Basophils # 0.0 (0-0.2) k/uL PT 10.4 (9.0-12.0) sec INR 1.0 (<1.2) APTT 24.6 (22.0-30.0) sec Sodium (137-145) mmol/L Potassium (3.5-5.1) mmol/L Chloride (98-107) mmol/L Carbon Dioxide (22-30) mmol/L Anion Gap mmol/L BUN (7-17) mg/dL Creatinine (0.52-1.04) mg/dL Est GFR (CKD-EPI)AfAm (>60 ml/min/1.73 sqM) Est GFR (CKD-EPI)NonAf (>60 ml/min/1.73 sqM) Glucose (74-99) mg/dL Plasma Lactic Acid [place] (0.7-2.0) mmol/L Calcium (8.4-10.2) mg/dL Total Bilirubin (0.2-1.3) mg/dL AST (14-36) U/L ALT (4-34) U/L Alkaline Phosphatase (38-126) U/L Total Protein (6.3-8.2) g/dL Albumin (3.5-5.0) g/dL Amylase (30-110) U/L Lipase (23-300) U/L HCG, Qual Urine Color Yellow Urine Appearance Cloudy H (Clear) Urine pH 7.0 (5.0-8.0) Ur Specific [place] 1.022 (1.001-1.035) Urine Protein Trace H (Negative) Urine Glucose (UA) Negative (Negative) Urine Ketones 1+ H (Negative) Urine Blood Negative (Negative) Urine Nitrite Negative (Negative) Urine Bilirubin Negative (Negative) Urine Urobilinogen <2.0 (<2.0) mg/dL Ur Leukocyte Esterase Large H (Negative) Urine RBC 6 H (0-5) /hpf Urine WBC 16 H (0-5) /hpf Ur Squamous Epith Cells 11 H (0-4) /hpf Urine Bacteria Many H (None) /hpf Urine Mucus Few H (None) /hpf Influenza Type A (PCR) (Not Detectd) Influenza Type B (PCR) (Not Detectd) RSV (PCR) (Not Detectd) SARS-CoV-2 (PCR) (Not Detectd) 01/26/23 01/26/23 01/26/23 Range/Units 19:03 19:03 19:03 WBC (3.8-10.6) k/uL RBC (3.80-5.40) m/uL Hgb (11.4-16.0) gm/dL Hct (34.0-46.0) % MCV (80.0-100.0) fL MCH (25.0-35.0) pg MCHC (31.0-37.0) g/dL RDW (11.5-15.5) % Plt Count (150-450) k/uL MPV Neutrophils % % Lymphocytes % % Monocytes % % Eosinophils % % Basophils % % Neutrophils # (1.3-7.7) k/uL Lymphocytes # (1.0-4.8) k/uL Monocytes # (0-1.0) k/uL Eosinophils # (0-0.7) k/uL Basophils # (0-0.2) k/uL PT (9.0-12.0) sec INR (<1.2) APTT (22.0-30.0) sec Sodium 139 (137-145) mmol/L Potassium 4.3 (3.5-5.1) mmol/L Chloride 106 (98-107) mmol/L Carbon Dioxide 23 (22-30) mmol/L Anion Gap 10 mmol/L BUN 10 (7-17) mg/dL Creatinine 0.55 (0.52-1.04) mg/dL Est GFR (CKD-EPI)AfAm >90 (>60 ml/min/1.73 sqM) Est GFR (CKD-EPI)NonAf >90 (>60 ml/min/1.73 sqM) Glucose 86 (74-99) mg/dL Plasma Lactic Acid [place] 1.2 (0.7-2.0) mmol/L Calcium 9.3 (8.4-10.2) mg/dL Total Bilirubin 1.4 H (0.2-1.3) mg/dL AST 28 (14-36) U/L ALT 27 (4-34) U/L Alkaline Phosphatase 71 (38-126) U/L Total Protein 8.0 (6.3-8.2) g/dL Albumin 4.6 (3.5-5.0) g/dL Amylase 48 (30-110) U/L Lipase 36 (23-300) U/L HCG, Qual Not Detected Urine Color Urine Appearance (Clear) Urine pH (5.0-8.0) Ur Specific [place] (1.001-1.035) Urine Protein (Negative) Urine Glucose (UA) (Negative) Urine Ketones (Negative) Urine Blood (Negative) Urine Nitrite (Negative) Urine Bilirubin (Negative) Urine Urobilinogen (<2.0) mg/dL Ur Leukocyte Esterase (Negative) Urine RBC (0-5) /hpf Urine WBC (0-5) /hpf Ur Squamous Epith Cells (0-4) /hpf Urine Bacteria (None) /hpf Urine Mucus (None) /hpf Influenza Type A (PCR) Not Detected (Not Detectd) Influenza Type B (PCR) Not Detected (Not Detectd) RSV (PCR) Not Detected (Not Detectd) SARS-CoV-2 (PCR) Detected A (Not Detectd) Disposition Clinical Impression: Nausea and vomiting, COVID-19 virus infection, Abdominal pain of unknown etiology Disposition: HOME SELF-CARE Condition: Good Instructions (If sedation given, give patient instructions): Abdominal Pain (ED), COVID-19 (Coronavirus Disease 2019) (ED) Additional Instructions: Attempt to isolate for 5 days. Obtain a pulse ox to monitor oxygen levels, return if oxygen less than 90-92%. stay hydrated, return if worsening symptoms or intractable nausea and vomiting. Prescriptions: Dicyclomine [Bentyl] 10 mg PO TID PRN 7 Days #21 capsule PRN Reason: Pain Famotidine [Pepcid] 20 mg PO DAILY 7 Days #7 tablet Ondansetron Odt [Zofran Odt] 4 mg PO Q8HR PRN 3 Days #3 tab PRN Reason: Nausea Is patient prescribed a controlled substance at d/c from ED?: No Referrals: None,Stated [Primary Care Provider] - 1-2 days Time of Disposition: 21:35
[2023-01-26 19:22] LABS: Basophils % (A) 0 %; Eosinophils # (A) 0.2 k/uL (0-0.7); Eosinophils % (A) 1 %; HCT 41.9 % (34.0-46.0); HGB 15.1 gm/dL (11.4-16.0); Lymphocytes # (A) 1.4 k/uL (1.0-4.8); Lymphocytes % (A) 8 %; MCH 29.8 pg (25.0-35.0); MCV 82.9 fL (80.0-100.0); Mean Platelet Volume 8.3; Monocytes # (A) 0.4 k/uL (0-1.0); Monocytes % (A) 2 %; Neutrophils % (A) 88 %; Platelet Count 267 k/uL (150-450); RBC 5.06 m/uL (3.80-5.40); RDW 12.6 % (11.5-15.5); WBC 17.1 k/uL (3.8-10.6)
[2023-01-26 19:31] LABS: ALT 27 U/L (4-34); AST 28 U/L (14-36); African American GFR (CKD) >90 (>60 ml/min/1.73 sqM); Albumin 4.6 g/dL (3.5-5.0); Alkaline Phosphatase 71 U/L (38-126); Amylase 48 U/L (30-110); Anion Gap 10 mmol/L; Blood Urea Nitrogen 10 mg/dL (7-17); Calcium 9.3 mg/dL (8.4-10.2); Carbon Dioxide 23 mmol/L (22-30); Chloride 106 mmol/L (98-107); Glucose 86 mg/dL (74-99); Lipase 36 U/L (23-300); Non-African American GFR(CKD) >90 (>60 ml/min/1.73 sqM); Potassium 4.3 mmol/L (3.5-5.1); Sodium 139 mmol/L (137-145); Total Bilirubin 1.4 mg/dL (0.2-1.3)
[2023-01-26 19:41] LABS: Partial Thromboplastin Time 24.6 sec (22.0-30.0); Prothrombin Time 10.4 sec (9.0-12.0)
[2023-01-26 19:46] LABS: HCG,Qualitative Serum Not Detected
[2023-01-26 20:42] LABS: Appearance,Urine Cloudy (Clear); Bacteria,Urine Many /hpf; Bilirubin,Urine Negative (Negative); Blood,Urine Negative (Negative); Color,Urine Yellow; Glucose,Urine (UA) Negative (Negative); Ketones,Urine 1+ (Negative); Leukocyte Esterase,Urine Large (Negative); Mucus,Urine Few /hpf; Nitrite,Urine Negative (Negative); Protein,Urine Trace (Negative); RBC,Urine 6 /hpf (0-5); Specific Gravity,Urine 1.022 (1.001-1.035); Squamous Epithelial Cell,Urine 11 /hpf (0-4); Urobilinogen,Urine <2.0 mg/dL (<2.0); WBC,Urine 16 /hpf (0-5)
--- NOTE | 2023-01-26 20:46 | XR ---
EXAMINATION TYPE: XR KUB DATE OF EXAM: 01/26/2023 7:26 PM INDICATION: Patient age:Female; 27 years old; Reason for study: abdominal pain; PHH. COMPARISON: Abdominal radiographs 03/19/2020 TECHNIQUE: One radiographic view of the abdomen was obtained. FINDINGS: The bowel gas pattern is nonspecific without dilated loops of small or large bowel. There i s no evidence for organomegaly or pneumoperitoneum. The osseous structures are intact. No abnormal calcifications are present. Fecal material and gas are demonstrated throughout the colon and rectum. IMPRESSION: Nonspecific bowel gas pattern without radiographic evidence for acute process.
[2023-01-26] MEDS ORDERED: MORPHINE SULFATE 4 MG/ML SYRINGE IVP STA (20:49)
--- NOTE | 2023-01-26 21:07 | US ---
EXAMINATION TYPE: US gallbladder DATE OF EXAM: 01/26/2023 COMPARISON: US 2019 CLINICAL HISTORY: ruq pain. TECHNIQUE: Multiple sonographic images of the right upper quadrant are obtained. FINDINGS: EXAM MEASUREMENTS: Liver Length: 14.1 cm Gallbladder Wall: 0.2 cm CBD: 0.4 cm Right Kidney: 12.9 x 4.9 x 4.8 cm Pancreas: Normal limits. Liver: Normal in appearance. Gallbladder: No stones seen. Evidence for sonographic Guzman's sign: no CBD: Normal in caliber. Right Kidney: No hydronephrosis or masses seen IMPRESSION: No sonographic evidence for acute abnormality of the right upper quadrant.
[2023-01-26] MEDS ORDERED: ONDANSETRON 4 MG ODT STARTER PACK 2 TAB BTL PO STA (21:42)
[2023-01-26 21:58] VITALS: BP 130/86; PULSE 88
== END 2023-01-26 21:58 | disposition home or self-care (01) ==
LOC: EC 18:45
DX: U07.1 COVID-19 (principal); J45.909 Unspecified asthma, uncomplicated; F41.9 Anxiety disorder, unspecified; F32.A Depression, unspecified; F17.290 Nicotine dependence, other tobacco product, uncomplicated; F12.90 Cannabis use, unspecified, uncomplicated; Z88.0 Allergy status to penicillin; Z91.038 Other insect allergy status
CPT/HCPCS: 36415; 80053; 82150; 83605; 83690; 85025; 85610; 85730; 81001; 84703; 87086; 87636; 74018; 76705; 99285; 96374; 96375 ×3; 96361; J2270; J2405; J1885; S0119; C9113

== ENCOUNTER 2023-02-26 06:47 | Emergency (ER) | payer OTHER ==
[2023-02-26] MEDS ORDERED: ACET/COD 300 MG/30 MG STARTER PACK 6 TAB BTL PO STA (07:07)
--- NOTE | 2023-02-26 07:09 | ED ---
ENT HPI - General Chief complaint: Dental/Oral Stated complaint: Dental Pain Time Seen by Provider: 02/26/23 06:49 Source: patient, EMS, RN notes reviewed Mode of arrival: EMS Limitations: no limitations - History of Present Illness Initial comments: 27-year-old female presents emergency Department treatment abdominal pain. Patient states that she started developing a couple days ago was just placed on clindamycin by the dental clinic she has a follow-up this week. She states she schedule have the tooth extracted. Patient states pain is uncomfortable and did not have relief from her Tylenol Motrin. Patient received morphine by EMS. Patient denies any fevers or chills no difficulty swallowing noted deep breathing. - Related Data Previous Rx's Medication Instructions Recorded Ibuprofen [Motrin] 600 mg PO Q8HR PRN #20 tab 12/01/22 Dicyclomine [Bentyl] 10 mg PO TID PRN 7 Days #21 capsule 01/26/23 Famotidine [Pepcid] 20 mg PO DAILY 7 Days #7 tablet 01/26/23 Ondansetron Odt [Zofran Odt] 4 mg PO Q8HR PRN 3 Days #3 tab 01/26/23 Allergies Allergy/AdvReac Type Severity Reaction Status Date / Time Penicillins Allergy Rash/Hives Verified 01/26/23 21:31 venom-wasp Allergy Anaphylaxis Verified 01/26/23 21:31 Review of Systems ROS Statement: Those systems with pertinent positive or pertinent negative responses have been documented in the HPI. ROS Other: All systems not noted in ROS Statement are negative. Past Medical History Past Medical History: Asthma History of Any Multi-Drug Resistant Organisms: None Reported Past Surgical History: No Surgical Hx Reported Past Psychological History: Anxiety, Depression Smoking Status: Vaper Past Alcohol Use History: Rare Past Drug Use History: Marijuana General Exam Limitations: no limitations General appearance: alert, in no apparent distress Head exam: Present: atraumatic, normocephalic, normal inspection Eye exam: Present: normal appearance, PERRL, EOMI. Absent: scleral icterus, conjunctival injection, periorbital swelling ENT exam: Present: mucous membranes moist. Absent: normal oropharynx (Dental Ainsley right lower there is no drainable abscess minimal to no swelling) Neck exam: Present: normal inspection, full ROM. Absent: tenderness, meningismus, lymphadenopathy Respiratory exam: Present: normal lung sounds bilaterally. Absent: respiratory distress, wheezes, rales, rhonchi, stridor Cardiovascular Exam: Present: regular rate, normal rhythm, normal heart sounds. Absent: systolic murmur, diastolic murmur, rubs, gallop, clicks Course Vital Signs 02/26/23 06:49 Temperature 98.3 F Pulse Rate 72 Respiratory 18 Rate Blood Pressure 119/81 O2 Sat by Pulse 94 L Oximetry Medical Decision Making - Medical Decision Making Was pt. sent in by a medical professional or institution (ANMOL Mariee, AIR CHIPPER, urgent care, hospital, or care home...) When possible be specific @ -No Did you speak to anyone other than the patient for history (EMS, parent, family, police, friend...)? What history was obtained from this source @ -EMS provided patient morphine, Zofran prehospital care and vitals provided Did you review nursing and triage notes (agree or disagree)? Why? @ -I reviewed and agree with nursing and triage notes Were old charts reviewed (outside hosp., previous admission, EMS record, old EKG, old radiological studies, urgent care reports/EKG's, care home records)? Report findings @ -No old charts were reviewed Differential Diagnosis (chest pain, altered mental status, abdominal pain women, abdominal pain men, vaginal bleeding, weakness, fever, dyspnea, syncope, headache, dizziness, GI bleed, back pain, seizure, CVA, palpatations, mental health, musculoskeletal)? @ -Dental infection, dental abscess, dental Ainsley EKG interpreted by me (3pts min.). @ -None X-rays interpreted by me (1pt min.). @ -None done CT interpreted by me (1pt min.). @ -None done U/S interpreted by me (1pt. min.). @ -None done What testing was considered but not performed or refused? (CT, X-rays, U/S, labs)? Why? @ -None What meds were considered but not given or refused? Why? @ -None Did you discuss the management of the patient with other professionals (professionals i.e. ANMOL Mariee, AIR CHIPPER, lab, RT, psych nurse, social security benefits interviewer, business intelligence director, teacher, international first officer, case management coordinator)? Give summary @ -No Was smoking cessation discussed for >3mins.? @ -No Was critical care preformed (if so, how long)? @ -No Were there social determinants of health that impacted care today? How? (Homelessness, low income, unemployed, alcoholism, drug addiction, transportation, low edu. Level, literacy, decrease access to med. care, care home, rehab)? @ -No Was there de-escalation of care discussed even if they declined (Discuss DNR or withdrawal of care, Hospice)? DNR status @ -No What co-morbidities impacted this encounter? (DM, HTN, Smoking, COPD, CAD, Cancer, CVA, ARF, Chemo, Hep., AIDS, mental health diagnosis, sleep apnea, morbid obesity)? @ -None Was patient admitted / discharged? Hospital course, mention meds given and route, prescriptions, significant lab abnormalities, going to OR and other pertinent info. @ -Discharge patient will continue clindamycin there is no drainable abscess she has minimal swelling pain relief was provided she'll follow-up with dental clinic for dental extraction Undiagnosed new problem with uncertain prognosis? @ -No Drug Therapy requiring intensive monitoring for toxicity (Heparin, Nitro, Insulin, Cardizem)? @ -No Were any procedures done? @ -No Diagnosis/symptom? @ -Dental infection Acute, or Chronic, or Acute on Chronic? @ -Acute Uncomplicated (without systemic symptoms) or Complicated (systemic symptoms)? @ -Uncomplicated Side effects of treatment? @ -No Exacerbation, Progression, or Severe Exacerbation? @ -No Poses a threat to life or bodily function? How? (Chest pain, [place], [place], pneumonia, PE, COPD, DKA, ARF, appy, cholecystitis, CVA, Diverticulitis, Homicidal, Suicidal, threat to staff... and all critical care pts) @ -No Disposition Clinical Impression: Pain, dental Disposition: HOME SELF-CARE Condition: Stable Instructions (If sedation given, give patient instructions): Toothache (ED) Additional Instructions: Please return to the Emergency Department if symptoms worsen or any other concerns. Is patient prescribed a controlled substance at d/c from ED?: No Referrals: None,Stated [Primary Care Provider] - 1-2 days Time of Disposition: 07:09
[2023-02-26 07:35] VITALS: BP 114/74; PULSE 67; RESP 16; TEMP 98.8
== END 2023-02-26 07:35 | disposition home or self-care (01) ==
LOC: EC 06:47
DX: K02.9 Dental caries, unspecified (principal); J45.909 Unspecified asthma, uncomplicated; F17.290 Nicotine dependence, other tobacco product, uncomplicated; F12.90 Cannabis use, unspecified, uncomplicated; Z88.0 Allergy status to penicillin; Z91.038 Other insect allergy status
CPT/HCPCS: 99283